=== PATIENT | female | born 1960 | race Caucasian/White ===

== ENCOUNTER 2017-05-23 08:47 | Inpatient (IN) | payer MEDICARE, MEDICAID, SELFPAY ==
[2017-05-23 09:15] VITALS: BP 133/75; PULSE 85; RESP 19; TEMP 36.4; O2SAT 95; BMI 16.6
--- NOTE | 2017-05-23 09:28 | NURSING ---
Patient refused ensure supplement. Patient prefers instant carnation breakfast drink 2-3 times a day
[2017-05-23 09:30] VITALS: BP 126/72; PULSE 79; RESP 20; O2SAT 97
[2017-05-23 09:42] VITALS: BMI 16.7
[2017-05-23 09:43] VITALS: PULSE 80
[2017-05-23 09:48] VITALS: BP 140/73; PULSE 78; RESP 19; O2SAT 97
[2017-05-23 10:00] VITALS: BP 121/73; PULSE 84; RESP 22; O2SAT 98
[2017-05-23 10:26] LABS: Hematocrit 38.3 % (37-47); Hemoglobin 12.9 g/dl (12.0-15.0); Mean Corp Hgb Conc 33.7 g/gl (32-36); Mean Corpuscular Hgb 32.3 pg (27.0-32.0); Mean Corpuscular Volume 95.8 fL (81-99); Mean Platelet Vol. 12.3 fl (6.2-12.0); Platelet Count 59 K/mm3 (150-450); RBC Distribution Width CV 13.5 % (11.6-14.6); RBC Distribution Width SD 45.5 fl (35.1-43.9); White Blood Count 6.2 K/mm3 (4.4-11.0)
[2017-05-23 10:28] LABS: Anion Gap 7 (5-15); BUN 10 mg/dL (7-18); BUN/Creat Ratio 17.8 RATIO (10-20); Chloride 110 mmol/L (98-107); Creatinine, Serum 0.56 mg/dL (0.55-1.02); EST Glomerular Filtration Rate 119 mL/min (>60); Est Glom Filt Rate - Afr Amer 144 mL/min (>60); Estimated Creatinine Clearance 80.42 ml/min; Glucose 119 mg/dL (74-106); Magnesium 1.7 mg/dL (1.6-2.6); Potassium 4.4 mmol/L (3.5-5.1); Sodium Level 141 mmol/L (136-145)
[2017-05-23 10:32] LABS: Scan Indicated on CBC? Y/N NO
[2017-05-23 11:34] VITALS: BP 126/58; PULSE 83; RESP 18; TEMP 36.4; O2SAT 95
[2017-05-23] MEDS: 0.9% NaCl VAD Flush 10 ML IV (11:34)
== END 2017-05-23 11:55 | disposition home or self-care (01) | DRG 847 ==
PROVIDERS: Admitting Provider Internal Medicine Hematology & Oncology; Family Provider Family Medicine; PCP Family Medicine; Visit Provider Internal Medicine Hematology & Oncology
DX: Z51.11 Encounter for antineoplastic chemotherapy (principal); C56.9 Malignant neoplasm of unspecified ovary; F31.5 Bipolar disorder, current episode depressed, severe, with psychotic features; M50.10 Cervical disc disorder with radiculopathy, unspecified cervical region; M51.16 Intervertebral disc disorders with radiculopathy, lumbar region; M13.819 Other specified arthritis, unspecified shoulder; F17.210 Nicotine dependence, cigarettes, uncomplicated
CPT/HCPCS: 80048; 83735; 85027; A4216

== ENCOUNTER 2017-05-30 08:53 | Inpatient (IN) | payer MEDICARE, MEDICAID, SELFPAY ==
[2017-05-30] VITALS (33 sets, daily range): BP systolic 93–161; BP diastolic 48–109; PULSE 65–96; RESP 14–24; TEMP 36.6–36.8; O2SAT 96–100; BMI 16.5
[2017-05-30] MEDS: DiphenhydrAMINE 50 MG/ML Syringe IV ×2 (11:23→22:35)
[2017-05-30 11:39] LABS: M R Staph aureus DNA By PCR Negative (Negative); Probe Check PASS; Specimen Processing Control PASS
[2017-05-30] MEDS: Albuterol 2.5 MG/3 ML VIAL.NEB. INHALATION ×2 (13:59→22:47)
--- NOTE | 2017-05-30 15:46 | CHAPLAIN ---
Type of Pastoral Visit _x__ Initial Visit ___ Follow-up Visit ___ On-call Visit ___ General Patient Visit ___ Spiritual Assessment ___ Family Conference ___ Bereavement ___ Rapid Response ___ Code Blue ___ Other (describe below) Pastoral Care Referral From _x__ Patient ___ Family ___ Nurse ___ Physician ___ [place] ___ Telecom Billing Analyst ___ Other (describe below) Sacrament/Intervention _x__ Active listening ___ Anointing ___ Bahai ___ Bereavement ___ Communion _x__ Katelyn exploration ___ _x__ Life review _x__ Prayer ___ Reconciliation ___ Sacrament of Sick _x__ Supportive presence ___ Wedding ___ Other (describe below) Pastoral Comments five year cancer survivor; wants katelyn to stay strong as she continues to face treatments and ongoing cancer challenges; daughter is with her in room; pt invites this regulatory compliance coordinator to see her again soon
--- NOTE | 2017-05-30 18:03 | PCM.HP.STD ---
Problem List (1) Ovarian epithelial cancer Status: Chronic Qualifiers: Laterality: unspecified laterality Qualified Code(s): C56.9 - Malignant neoplasm of unspecified ovary (2) Chemotherapy adverse reaction Status: Acute Qualifiers: Encounter type: sequela Qualified Code(s): T45.1X5S - Adverse effect of antineoplastic and immunosuppressive drugs, sequela History of Present Illness Date of Admission: 05/30/17 Chief Complaint: Adjuvant chemotherapy- carboplatin desensitization. Previous allergic reaction. The patient is a 56 year old F history of ovarian cancer, status post LOGAN/BSO and debulking operation several years ago. Patient received adjuvant chemotherapy with carboplatin/Pacitaxel. She had her 1st recurrence and had 2nd look operation with intraperitoneal chemotherapy followed by additional cycles of Avastin/carboplatin/gemcitabine chemotherapy. Patient developed allergic reaction to carboplatin at the completion of her last round of chemotherapy. She did not continue Avastin maintenance therapy. Presenting with her 2nd recurrence with retroperitoneal adenopathy on PET scan which was treated by radiosurgery earlier this year. Her CA 125 level did not return to normal after radiation treatment. She started additional chemotherapy with carboplatin desensitization protocol last month in [facility]. Patient did not have any severe reaction from chemotherapy. She also had gemcitabine 3 weeks ago. She her chemotherapy treatment was delayed last week because of thrombocytopenia. She did otherwise well with chemotherapy with no severe nausea vomiting, except for fatigue after chemotherapy. 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 Patient has no new complaint at this time. Her labs yesterday was adequate, normal CBC and creatinine. Past Medical History Past Medical History (Chronic Problems): Chronic Problems Ovarian epithelial cancer (Chronic) Tobacco use disorder (Chronic) Intra-abdominal & Pelvic Swelling, Mass, & Lump (Chronic) History of acute cystitis (Chronic) History of abdominal pain (Chronic) Allergies erythromycin base [Erythromycin Base] Allergy (Verified 01/22/17 12:09) Hives Carboplatin Home Medications: Ambulatory Orders Medication Instructions Recorded Lamotrigine [Lamictal] 25 mg PO DAILY 05/23/17 [place] Carbonate [[place] 300 mg PO BID 05/23/17 Carbonate ER] Morphine Sulfate [Morphine Sulfate 15 mg PO BID PRN 05/23/17 ER] Ondansetron [Zofran] 8 mg PO Q8H PRN PRN 05/23/17 Acetaminophen [Acetaminophen ER] 650 mg PO Q4H PRN PRN 05/30/17 Albuterol Inhaler [Ventolin Hfa 2 puff INHALATION Q4H PRN PRN 05/30/17 (SP)] Amlodipine [Norvasc] 5 mg PO DAILY 05/30/17 Cholecalciferol (Vitamin D3) 1,000 unit PO DAILY 05/30/17 [Vitamin D3] Docusate Sodium [Colace] 100 mg PO BID 05/30/17 Lidocaine/Prilocaine 1 applic TOPICAL UD 05/30/17 [Lidocaine-Prilocaine Cream] Naproxen [Naprosyn] 500 mg PO BID PRN PRN 05/30/17 Pantoprazole Sodium [Protonix] 20 mg PO DAILY 05/30/17 Polyethylene Glycol 3350 [Miralax] 17 gm PO DAILY 05/30/17 Surgical History: - - Multiple surgery for ovarian cancer; 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: ovarian cancer Smoking Status: Current every day smoker Alcohol: None Drugs: None Review of Systems Constitutional: Reports: Fatigue Neurological: Reports: Numbness - on lower extremity, Tingling VTE Information - Inpt Only VTE Present on Admission: No VTE Pharm Prophylaxis ordered?: Yes Patient Problems: Active and Suspected Problems Chemotherapy adverse reaction (Acute) - Physical Exam General: Alert, Oriented x3, No apparent distress HEENT: Atraumatic, PERRLA, EOMI Oral: Moist Mucosa, No Gingival or Mucosal Lesions/ Ulcerations Neck: Supple, No JVD, No Nodes Lungs: Clear to auscultation, Normal air movement, No rhonchi, No wheeze Cardiovascular: Regular rate, Regular Rhythm, Normal S1, Normal S2, No murmurs Abdomen: Bowel Sounds Present, Soft, Non Tender, Non-Distended, No Hepato-splenomegaly Extremities: No clubbing, No cyanosis, No edema Skin: No rashes Musculoskeletal: No Tenderness to Palpation of Joints or Extremities Lymphatic: No Cervical, Supraclavicular, or Inguinal Adenopathy Neurological: Neuro grossly intact Psych/Mental Status: Normal Affect Vital Signs Temp Pulse Resp BP Pulse Ox 97.8 F 83 18 126/65 H 96 05/30/17 15:00 05/30/17 16:44 05/30/17 16:44 05/30/17 16:44 05/30/17 16:44 Oxygen Delivery Method Room Air Weight: 99 lb 3.328 oz Body Mass Index (BMI) 16.5 Intake and Output for Last 24 Hours 05/28/17 05/29/17 05/30/17 23:59 23:59 23:59 Intake Total 254 / 254 Balance 254 / 254 Laboratory Tests Past 24 Hrs 05/30/17 09:38 MRSA (PCR) Negative Assessment/Plan Active and Suspected Problems Chemotherapy adverse reaction (Acute) 1) recurrent ovarian cancer- 3 rd remission on adjuvant chemotherapy (carboplatin desensitization protocol) - Patient is doing well without any evidence of reaction Plan: - Continue carboplatin and infusional overnight; proceed with day 2 decitabine tomorrow after completion of carboplatin - Return to office next week Sunday for day 8 gemcitabine; if CBC is normal ( ANC > 1500 & platelets > 100,000 ) - Office visit in 3 weeks; and we will repeat her labs and CA-125 level before her next hospital admission in 3-4 weeks for next cycle of chemotherapy. 2) history of adverse reaction to carboplatin - Patient is doing well with desensitization program Plan: - Continue to monitor vital signs on telemetry - Follow I/O. - Compazine/Zofran as needed for nausea 3) DVT prophylaxis Plan: - Lovexox 40mg subcutaneous daily Plan to discharge home tomorrow after chemotherapy completed. Follow-up in one week for day 8 chemotherapy-gemcitabine cc: Dr. Jaciel Morfin, Dr. Edison Roa, III
--- NOTE | 2017-05-30 18:14 | HP.PCM_ITS ---
Problem List (1) Ovarian epithelial cancer Status: Chronic Qualifiers: Laterality: unspecified laterality Qualified Code(s): C56.9 - Malignant neoplasm of unspecified ovary (2) Chemotherapy adverse reaction Status: Acute Qualifiers: Encounter type: sequela Qualified Code(s): T45.1X5S - Adverse effect of antineoplastic and immunosuppressive drugs, sequela History of Present Illness Date of Admission: 05/30/17 Chief Complaint: Adjuvant chemotherapy- carboplatin desensitization. Previous allergic reaction. The patient is a 56 year old F history of ovarian cancer, status post LOGAN/BSO and debulking operation several years ago. Patient received adjuvant chemotherapy with carboplatin/Pacitaxel. She had her 1st recurrence and had 2nd look operation with intraperitoneal chemotherapy followed by additional cycles of Avastin/carboplatin/gemcitabine chemotherapy. Patient developed allergic reaction to carboplatin at the completion of her last round of chemotherapy. She did not continue Avastin maintenance therapy. Presenting with her 2nd recurrence with retroperitoneal adenopathy on PET scan which was treated by radiosurgery earlier this year. Her CA 125 level did not return to normal after radiation treatment. She started additional chemotherapy with carboplatin desensitization protocol last month in [facility]. Patient did not have any severe reaction from chemotherapy. She also had gemcitabine 3 weeks ago. She her chemotherapy treatment was delayed last week because of thrombocytopenia. She did otherwise well with chemotherapy with no severe nausea vomiting, except for fatigue after chemotherapy. 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 Patient has no new complaint at this time. Her labs yesterday was adequate, normal CBC and creatinine. Past Medical History Past Medical History (Chronic Problems): Chronic Problems Ovarian epithelial cancer (Chronic) Tobacco use disorder (Chronic) Intra-abdominal & Pelvic Swelling, Mass, & Lump (Chronic) History of acute cystitis (Chronic) History of abdominal pain (Chronic) Allergies erythromycin base [Erythromycin Base] Allergy (Verified 01/22/17 12:09) Hives Carboplatin Home Medications: Ambulatory Orders Medication Instructions Recorded Lamotrigine [Lamictal] 25 mg PO DAILY 05/23/17 [place] Carbonate [[place] 300 mg PO BID 05/23/17 Carbonate ER] Morphine Sulfate [Morphine Sulfate 15 mg PO BID PRN 05/23/17 ER] Ondansetron [Zofran] 8 mg PO Q8H PRN PRN 05/23/17 Acetaminophen [Acetaminophen ER] 650 mg PO Q4H PRN PRN 05/30/17 Albuterol Inhaler [Ventolin Hfa 2 puff INHALATION Q4H PRN PRN 05/30/17 (SP)] Amlodipine [Norvasc] 5 mg PO DAILY 05/30/17 Cholecalciferol (Vitamin D3) 1,000 unit PO DAILY 05/30/17 [Vitamin D3] Docusate Sodium [Colace] 100 mg PO BID 05/30/17 Lidocaine/Prilocaine 1 applic TOPICAL UD 05/30/17 [Lidocaine-Prilocaine Cream] Naproxen [Naprosyn] 500 mg PO BID PRN PRN 05/30/17 Pantoprazole Sodium [Protonix] 20 mg PO DAILY 05/30/17 Polyethylene Glycol 3350 [Miralax] 17 gm PO DAILY 05/30/17 Surgical History: - - Multiple surgery for ovarian cancer; 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: ovarian cancer Smoking Status: Current every day smoker Alcohol: None Drugs: None Review of Systems Constitutional: Reports: Fatigue Neurological: Reports: Numbness - on lower extremity, Tingling VTE Information - Inpt Only VTE Present on Admission: No VTE Pharm Prophylaxis ordered?: Yes Patient Problems: Active and Suspected Problems Chemotherapy adverse reaction (Acute) - Physical Exam General: Alert, Oriented x3, No apparent distress HEENT: Atraumatic, PERRLA, EOMI Oral: Moist Mucosa, No Gingival or Mucosal Lesions/ Ulcerations Neck: Supple, No JVD, No Nodes Lungs: Clear to auscultation, Normal air movement, No rhonchi, No wheeze Cardiovascular: Regular rate, Regular Rhythm, Normal S1, Normal S2, No murmurs Abdomen: Bowel Sounds Present, Soft, Non Tender, Non-Distended, No Hepato- splenomegaly Extremities: No clubbing, No cyanosis, No edema Skin: No rashes Musculoskeletal: No Tenderness to Palpation of Joints or Extremities Lymphatic: No Cervical, Supraclavicular, or Inguinal Adenopathy Neurological: Neuro grossly intact Psych/Mental Status: Normal Affect Vital Signs Temp Pulse Resp BP Pulse Ox 97.8 F 83 18 126/65 H 96 05/30/17 15:00 05/30/17 16:44 05/30/17 16:44 05/30/17 16:44 05/30/17 16:44 Oxygen Delivery Method Room Air Weight: 99 lb 3.328 oz Body Mass Index (BMI) 16.5 Intake and Output for Last 24 Hours 05/28/17 05/29/17 05/30/17 23:59 23:59 23:59 Intake Total 254 / 254 Balance 254 / 254 Laboratory Tests Past 24 Hrs 05/30/17 09:38 MRSA (PCR) Negative Assessment/Plan Active and Suspected Problems Chemotherapy adverse reaction (Acute) 1) recurrent ovarian cancer- 3 rd remission on adjuvant chemotherapy ( carboplatin desensitization protocol) - Patient is doing well without any evidence of reaction Plan: - Continue carboplatin and infusional overnight; proceed with day 2 decitabine tomorrow after completion of carboplatin - Return to office next week Sunday for day 8 gemcitabine; if CBC is normal ( ANC > 1500 & platelets > 100,000 ) - Office visit in 3 weeks; and we will repeat her labs and CA-125 level before her next hospital admission in 3-4 weeks for next cycle of chemotherapy. 2) history of adverse reaction to carboplatin - Patient is doing well with desensitization program Plan: - Continue to monitor vital signs on telemetry - Follow I/O. - Compazine/Zofran as needed for nausea 3) DVT prophylaxis Plan: - Lovexox 40mg subcutaneous daily Plan to discharge home tomorrow after chemotherapy completed. Follow-up in one week for day 8 chemotherapy-gemcitabine cc: Dr. Jaciel Morfin, Dr. Edison Roa, III
[2017-05-30] MEDS: Docusate Sodium 100 MG Capsule PO (21:16)
[2017-05-30] MEDS: Pantoprazole Sodium 20 MG Tablet PO (21:18)
[2017-05-30] MEDS: LITHIUM CARBONATE 300 MG TABLET.ER PO (22:25)
[2017-05-30] MEDS: proCHLORPERazine 5 MG Tablet 10 MG PO (23:05)
[2017-05-31] VITALS (8 sets, daily range): BP systolic 107–129; BP diastolic 50–74; PULSE 64–79; RESP 16–18; TEMP 36.6–36.7; O2SAT 97–99
[2017-05-31] MEDS: Enoxaparin 40 MG/0.4 ML Syringe SC (06:54)
--- NOTE | 2017-05-31 08:54 | PCM.DC.BLA ---
Discharge Summary Date of Admission: 05/30/17 Date of Discharge: 05/31/17 Summary: 56-year-old female with recurrent overlying cancer admitted for chemotherapy- carboplatin desensitization protocol. Patient previously had an adverse reaction (infusion reaction to carboplatin). Patient tolerated chemotherapy without complications. She did receive a dose of Benadryl last night doing chemotherapy infusion. As no adverse or severe allergic reactions. Patient was discharged home this morning on the stable condition. Code Visit Inpatient E&M: 62308 Disch Hosp
--- NOTE | 2017-05-31 08:57 | DS.PCM_ITS ---
Discharge Summary Date of Admission: 05/30/17 Date of Discharge: 05/31/17 Summary: 56-year-old female with recurrent overlying cancer admitted for chemotherapy- carboplatin desensitization protocol. Patient previously had an adverse reaction (infusion reaction to carboplatin). Patient tolerated chemotherapy without complications. She did receive a dose of Benadryl last night doing chemotherapy infusion. As no adverse or severe allergic reactions. Patient was discharged home this morning on the stable condition. Code Visit Inpatient E&M: 70702 Disch Hosp
--- NOTE | 2017-05-31 08:57 | PCM.DC ---
- Discharge Diagnoses Current Active Problems: Current Active and Chronic Problems Ovarian epithelial cancer (Chronic) Chemotherapy adverse reaction (Acute) Reason(s) for Visit for Discharge Instructions: Chemotherapy administration You will use the following diet at home:: No restrictions Your food should be the consistency of: Regular Discharge Activity: Return to Normal Activity May resume sexual activity in: 10-14 days Call your doctor if you observe: Fever of 101 or Higher, Shortness of breath Allergies/Adverse Reactions: Allergies erythromycin base [Erythromycin Base] Allergy (Verified 01/22/17 12:09) Hives Medications to take at Discharge Lamotrigine [Lamictal] 25 mg PO DAILY 05/23/17 [place] Carbonate [[place] Carbonate ER] 300 mg PO BID 05/23/17 Morphine Sulfate [Morphine Sulfate ER] 15 mg PO BID PRN 05/23/17 Ondansetron [Zofran] 8 mg PO Q8H PRN PRN 05/23/17 Acetaminophen [Acetaminophen ER] 650 mg PO Q4H PRN PRN 05/30/17 Albuterol Inhaler [Ventolin Hfa (SP)] 2 puff INHALATION Q4H PRN PRN 05/30/17 Amlodipine [Norvasc] 5 mg PO DAILY 05/30/17 Cholecalciferol (Vitamin D3) [Vitamin D3] 1,000 unit PO DAILY 05/30/17 Docusate Sodium [Colace] 100 mg PO BID 05/30/17 Lidocaine/Prilocaine [Lidocaine-Prilocaine Cream] 1 applic TOPICAL UD 05/30/17 Naproxen [Naprosyn] 500 mg PO BID PRN PRN 05/30/17 Pantoprazole Sodium [Protonix] 20 mg PO DAILY 05/30/17 Polyethylene Glycol 3350 [Miralax] 17 gm PO DAILY 05/30/17 Primary Care Physician: Edison Roa III, MD [Primary Care Provider] -
--- NOTE | 2017-05-31 10:38 | CASEMGMT ---
SW met w/pt briefly, to ask how she is managing. Pt states she is managing well, reports daughter as a good support. Pt reports this is her third time through this, and her third round of chemotherapy this time around. SW gave pt this SW's cared, encouraged her to call this SW if she needs anything. No further needs at this time. DARLINE Li, DIGITAL HARDWARE DESIGN ENGINEER
[2017-05-31] MEDS: Docusate Sodium 100 MG Capsule PO (11:09)
[2017-05-31] MEDS: lamoTRIgine 25 MG Tablet 75 MG PO (11:09)
[2017-05-31] MEDS: Pantoprazole Sodium 20 MG Tablet PO (11:15)
[2017-05-31] MEDS: LITHIUM CARBONATE 300 MG TABLET.ER PO (11:17)
[2017-05-31] MEDS: proCHLORPERazine 5 MG Tablet 10 MG PO (12:38)
== END 2017-05-31 13:50 | disposition home or self-care (01) | DRG 847 ==
PROVIDERS: Admitting Provider Internal Medicine Hematology & Oncology; Family Provider Family Medicine; PCP Family Medicine; Visit Provider Internal Medicine Hematology & Oncology
DX: Z51.11 Encounter for antineoplastic chemotherapy (principal); C56.9 Malignant neoplasm of unspecified ovary; G62.0 Drug-induced polyneuropathy; F17.200 Nicotine dependence, unspecified, uncomplicated; T45.1X5S Adverse effect of antineoplastic and immunosuppressive drugs, sequela; Z90.710 Acquired absence of both cervix and uterus; Z90.722 Acquired absence of ovaries, bilateral; Z90.79 Acquired absence of other genital organ(s)
CPT/HCPCS: 87641; 94640; J7050; J9045; J2405; J3490; J9201

== ENCOUNTER 2017-06-21 08:46 | Observation (INO) | payer MEDICARE, MEDICAID, SELFPAY ==
[2017-06-21] VITALS (17 sets, daily range): BP systolic 97–128; BP diastolic 53–77; PULSE 69–90; RESP 14–16; TEMP 36.6–36.8; O2SAT 96–100; BMI 16.0; BMI 16.1
--- NOTE | 2017-06-21 09:35 | NURSING ---
talked w/ Dr. Morfin's nurse to verify if CBC, BMP, and Mag were infact completed as ordered. AwaRe pt did have CBC and BMP done and results faxed over, on the chart. Per 's nurse mag was not completed. order entered.
[2017-06-21 09:58] LABS: Magnesium 1.9 mg/dL (1.6-2.6)
[2017-06-21] MEDS: DiphenhydrAMINE 50 MG/ML Syringe IV (11:17)
--- NOTE | 2017-06-21 13:16 | PCM.HP.STD ---
Problem List (1) Ovarian epithelial cancer Status: Chronic Qualifiers: (2) Tobacco use disorder Status: Chronic (3) Bipolar disorder (manic depression) Status: Chronic Qualifiers: Active/Remission status: in remission of unspecified degree Qualified Code(s): F31.70 - Bipolar disorder, currently in remission, most recent episode unspecified History of Present Illness Date of Admission: 06/21/17 Chief Complaint: Administration of chemotherapy with carboplatin desensitization protocol The patient is a 56 year old F history of ovarian cancer ( BRCA1 and BRCA2 negative germline mutations ). Patient had her third recurrence of ovarian cancer recently. Previous surgery, chemotherapy and radiation treatment discussed elsewhere. Previous infusion reaction to carboplatin requiring hospital admissions. Medical history significant for hypertension and tobacco use. Current Treatment: Carboplatin / Gemcitabine. Interim history: She had 2 cycles of chemotherapy with carboplatin desensitization protocol. Her second cycle was delayed because of neutropenia. Patient has no problem with her last cycle of chemotherapy 3 weeks ago. The patient has no itching, rash, or difficulty breathing. She has no abdominal pain, nausea, vomiting or diarrhea. No chest pain, cough or shortness of breath. Patient has no worsening neuropathy since 3 years ago when she had Taxol carboplatin. Has no change in weight or appetite. She is admitted today for her third cycle of chemotherapy which was started this morning. Currently she has no hives or rash, itching or swollen throat. Past Medical History Past Medical History (Chronic Problems): Chronic Problems Ovarian epithelial cancer (Chronic) Bipolar disorder (manic depression) (Chronic) Tobacco use disorder (Chronic) Intra-abdominal & Pelvic Swelling, Mass, & Lump (Chronic) History of acute cystitis (Chronic) History of abdominal pain (Chronic) Allergies erythromycin base [Erythromycin Base] Allergy (Verified 01/22/17 12:09) Hives carboplatin Home Medications: Ambulatory Orders Medication Instructions Recorded Lamotrigine [Lamictal] 75 mg PO DAILY 05/23/17 [place] Carbonate [[place] 300 mg PO BID 05/23/17 Carbonate ER] Morphine Sulfate [Morphine Sulfate 15 mg PO BID PRN 05/23/17 ER] Ondansetron [Zofran] 8 mg PO Q8H PRN PRN 05/23/17 Albuterol Inhaler [Ventolin Hfa 2 puff INHALATION Q4H PRN PRN 05/30/17 (SP)] Amlodipine [Norvasc] 5 mg PO DAILY 05/30/17 Cholecalciferol (Vitamin D3) 1,000 unit PO DAILY 05/30/17 [Vitamin D3] Docusate Sodium [Colace] 100 mg PO BID 05/30/17 Lidocaine/Prilocaine 1 applic TOPICAL UD 05/30/17 [Lidocaine-Prilocaine Cream] Naproxen [Naprosyn] 500 mg PO BID PRN PRN 05/30/17 Pantoprazole Sodium [Protonix] 20 mg PO DAILY 05/30/17 Cephalexin [Keflex] 500 mg PO BID 06/21/17 Fluticasone/Vilanterol [Breo 1 each IH BID 06/21/17 Ellipt[place] Inhaler] Pyridoxine HCl [Vitamin B-6] 100 mg PO DAILY 06/21/17 Surgical History: - - Multiple surgery for ovarian cancer; 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, 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; 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 Lives: With Family Smoking Status: Current every day smoker Alcohol: None Drugs: None Review of Systems Psychiatric: Reports: Anxiety VTE Information - Inpt Only VTE Present on Admission: Yes VTE Pharm Prophylaxis ordered?: Yes - Physical Exam General: Alert, Oriented x3 HEENT: Atraumatic, PERRLA, EOMI, Normocephalic Oral: Moist Mucosa, No Gingival or Mucosal Lesions/ Ulcerations Neck: Supple, No JVD Lungs: Clear to auscultation, Normal air movement, No rhonchi, No wheeze, No rales Cardiovascular: Regular rate, Regular Rhythm, Normal S1, Normal S2, No murmurs, PMI Normal Abdomen: Bowel Sounds Present, Soft, Non Tender, Non-Distended, No Hepato-splenomegaly Extremities: No clubbing, No cyanosis, No edema Skin: No rashes Musculoskeletal: No Tenderness to Palpation of Joints or Extremities Lymphatic: No Cervical, Supraclavicular, or Inguinal Adenopathy Neurological: Neuro grossly intact Vital Signs Temp Pulse Resp BP Pulse Ox 98.2 F 74 16 128/74 H 98 06/21/17 12:45 06/21/17 13:15 06/21/17 12:45 06/21/17 13:15 06/21/17 12:45 Oxygen Delivery Method Room Air Weight: 96 lb 9.6 oz Body Mass Index (BMI) 16.0 Laboratory Tests Past 24 Hrs 06/21/17 09:45 Magnesium 1.9 Assessment/Plan 56-year-old lady third recurrence of ovarian cancer, status post cytoreduction and HIPEC with peritoneal lymph no adenopathy, status post RT, She is here for her third cycle of carboplatin MSK protocol and gemcitabine. History of tobacco addiction. Plan: - Proceed with chemotherapy desensitization protocol - Hold blood pressure medication today & resume after discharged home. - Nicotine 21mg topical daily - Lovenox 40mg sq daily for DVT prophylaxis - Repeat CT scan of C/A/P after this cycle of chemotherapy and office visit in 3 weeks. cc: Dr. Jaciel Morfin; Dr. Raffi Fung
--- NOTE | 2017-06-21 13:26 | HP.PCM_ITS ---
Problem List (1) Ovarian epithelial cancer Status: Chronic Qualifiers: (2) Tobacco use disorder Status: Chronic (3) Bipolar disorder (manic depression) Status: Chronic Qualifiers: Active/Remission status: in remission of unspecified degree Qualified Code( s): F31.70 - Bipolar disorder, currently in remission, most recent episode unspecified History of Present Illness Date of Admission: 06/21/17 Chief Complaint: Administration of chemotherapy with carboplatin desensitization protocol The patient is a 56 year old F history of ovarian cancer ( BRCA1 and BRCA2 negative germline mutations ). Patient had her third recurrence of ovarian cancer recently. Previous surgery, chemotherapy and radiation treatment discussed elsewhere. Previous infusion reaction to carboplatin requiring hospital admissions. Medical history significant for hypertension and tobacco use. Current Treatment: Carboplatin / Gemcitabine. Interim history: She had 2 cycles of chemotherapy with carboplatin desensitization protocol. Her second cycle was delayed because of neutropenia. Patient has no problem with her last cycle of chemotherapy 3 weeks ago. The patient has no itching, rash, or difficulty breathing. She has no abdominal pain, nausea, vomiting or diarrhea. No chest pain, cough or shortness of breath. Patient has no worsening neuropathy since 3 years ago when she had Taxol carboplatin. Has no change in weight or appetite. She is admitted today for her third cycle of chemotherapy which was started this morning. Currently she has no hives or rash, itching or swollen throat. Past Medical History Past Medical History (Chronic Problems): Chronic Problems Ovarian epithelial cancer (Chronic) Bipolar disorder (manic depression) (Chronic) Tobacco use disorder (Chronic) Intra-abdominal & Pelvic Swelling, Mass, & Lump (Chronic) History of acute cystitis (Chronic) History of abdominal pain (Chronic) Allergies erythromycin base [Erythromycin Base] Allergy (Verified 01/22/17 12:09) Hives carboplatin Home Medications: Ambulatory Orders Medication Instructions Recorded Lamotrigine [Lamictal] 75 mg PO DAILY 05/23/17 [place] Carbonate [[place] 300 mg PO BID 05/23/17 Carbonate ER] Morphine Sulfate [Morphine Sulfate 15 mg PO BID PRN 05/23/17 ER] Ondansetron [Zofran] 8 mg PO Q8H PRN PRN 05/23/17 Albuterol Inhaler [Ventolin Hfa 2 puff INHALATION Q4H PRN PRN 05/30/17 (SP)] Amlodipine [Norvasc] 5 mg PO DAILY 05/30/17 Cholecalciferol (Vitamin D3) 1,000 unit PO DAILY 05/30/17 [Vitamin D3] Docusate Sodium [Colace] 100 mg PO BID 05/30/17 Lidocaine/Prilocaine 1 applic TOPICAL UD 05/30/17 [Lidocaine-Prilocaine Cream] Naproxen [Naprosyn] 500 mg PO BID PRN PRN 05/30/17 Pantoprazole Sodium [Protonix] 20 mg PO DAILY 05/30/17 Cephalexin [Keflex] 500 mg PO BID 06/21/17 Fluticasone/Vilanterol [Breo 1 each IH BID 06/21/17 Ellipta Inhaler] Pyridoxine HCl [Vitamin B-6] 100 mg PO DAILY 06/21/17 Surgical History: - - Multiple surgery for ovarian cancer; 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, 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; 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 Lives: With Family Smoking Status: Current every day smoker Alcohol: None Drugs: None Review of Systems Psychiatric: Reports: Anxiety VTE Information - Inpt Only VTE Present on Admission: Yes VTE Pharm Prophylaxis ordered?: Yes - Physical Exam General: Alert, Oriented x3 HEENT: Atraumatic, PERRLA, EOMI, Normocephalic Oral: Moist Mucosa, No Gingival or Mucosal Lesions/ Ulcerations Neck: Supple, No JVD Lungs: Clear to auscultation, Normal air movement, No rhonchi, No wheeze, No rales Cardiovascular: Regular rate, Regular Rhythm, Normal S1, Normal S2, No murmurs, PMI Normal Abdomen: Bowel Sounds Present, Soft, Non Tender, Non-Distended, No Hepato- splenomegaly Extremities: No clubbing, No cyanosis, No edema Skin: No rashes Musculoskeletal: No Tenderness to Palpation of Joints or Extremities Lymphatic: No Cervical, Supraclavicular, or Inguinal Adenopathy Neurological: Neuro grossly intact Vital Signs Temp Pulse Resp BP Pulse Ox 98.2 F 74 16 128/74 H 98 06/21/17 12:45 06/21/17 13:15 06/21/17 12:45 06/21/17 13:15 06/21/17 12:45 Oxygen Delivery Method Room Air Weight: 96 lb 9.6 oz Body Mass Index (BMI) 16.0 Laboratory Tests Past 24 Hrs 06/21/17 09:45 Magnesium 1.9 Assessment/Plan 56-year-old lady third recurrence of ovarian cancer, status post cytoreduction and HIPEC with peritoneal lymph no adenopathy, status post RT, She is here for her third cycle of carboplatin [place] protocol and gemcitabine. History of tobacco addiction. Plan: - Proceed with chemotherapy desensitization protocol - Hold blood pressure medication today & resume after discharged home. - Nicotine 21mg topical daily - Lovenox 40mg sq daily for DVT prophylaxis - Repeat CT scan of C/A/P after this cycle of chemotherapy and office visit in 3 weeks. cc: Dr. Jaciel Morfin; Dr. Raffi Fung
[2017-06-21] MEDS: Enoxaparin 40 MG/0.4 ML Syringe SC (15:05)
[2017-06-21] MEDS: 0.9% NaCl VAD Flush 10 ML IV (16:36)
[2017-06-21] MEDS: LORazepam 2 MG/ML Syringe 0.5 MG IV (16:36)
[2017-06-21] MEDS: Budesonide Respules 0.5 MG/2 ML AMPUL.NEB. INHALATION (19:22)
[2017-06-21] MEDS: Albuterol 2.5 MG/3 ML VIAL.NEB. INHALATION (19:22)
[2017-06-21] MEDS: Docusate Sodium 100 MG Capsule PO (22:00)
[2017-06-21] MEDS: morphine SR 15 MG Tablet PO (22:00)
[2017-06-21] MEDS: Pantoprazole Sodium 20 MG Tablet PO (22:03)
[2017-06-22] VITALS (7 sets, daily range): BP systolic 115–131; BP diastolic 62–76; PULSE 70–80; RESP 14–16; TEMP 36.5–36.9; O2SAT 97–100
[2017-06-22] MEDS: Ondansetron 4 MG/2 ML Vial 8 MG IV ×2 (00:16→10:34)
[2017-06-22] MEDS: DiphenhydrAMINE 50 MG/ML Syringe IV (00:16)
[2017-06-22] MEDS: 0.9% NaCl VAD Flush 10 ML IV ×3 (00:17→12:25)
[2017-06-22] MEDS: Budesonide Respules 0.5 MG/2 ML AMPUL.NEB. INHALATION (07:01)
[2017-06-22] MEDS: Albuterol 2.5 MG/3 ML VIAL.NEB. INHALATION (07:01)
--- NOTE | 2017-06-22 07:50 | PCM.DC ---
- Discharge Diagnoses Current Active Problems: Current Active and Chronic Problems Bipolar disorder (manic depression) (Chronic) You will use the following diet at home:: No restrictions Your food should be the consistency of: Regular Your liquids should be the consistency of: Regular/Thin Discharge Activity: Return to Normal Activity Allergies/Adverse Reactions: Allergies erythromycin base [Erythromycin Base] Allergy (Verified 01/22/17 12:09) Hives Medications to take at Discharge Lamotrigine [Lamictal] 75 mg PO DAILY 05/23/17 [place] Carbonate [[place] Carbonate ER] 300 mg PO BID 05/23/17 Morphine Sulfate [Morphine Sulfate ER] 15 mg PO BID PRN 05/23/17 Ondansetron [Zofran] 8 mg PO Q8H PRN PRN 05/23/17 Albuterol Inhaler [Ventolin Hfa] 2 puff INHALATION Q4H PRN PRN 05/30/17 Amlodipine [Norvasc] 5 mg PO DAILY 05/30/17 Cholecalciferol (Vitamin D3) [Vitamin D3] 1,000 unit PO DAILY 05/30/17 Docusate Sodium [Colace] 100 mg PO BID 05/30/17 Lidocaine/Prilocaine [Lidocaine-Prilocaine Cream] 1 applic TOPICAL UD 05/30/17 Naproxen [Naprosyn] 500 mg PO BID PRN PRN 05/30/17 Pantoprazole Sodium [Protonix] 20 mg PO DAILY 05/30/17 Cephalexin [Keflex] 500 mg PO BID 06/21/17 Fluticasone/Vilanterol [Breo Ellipta 100-25 Mcg INH] 1 each IH BID 06/21/17 Pyridoxine HCl [Vitamin B-6] 100 mg PO DAILY 06/21/17 Primary Care Physician: Edison Roa III, MD [Primary Care Provider] - Please Follow Up With: Jaciel Morfin MD - As scheduled
--- NOTE | 2017-06-22 07:55 | DS.PCM_ITS ---
Discharge Date and Diagnosis Date of Admission: 06/21/17 Date of Discharge: 06/22/17 - Secondary Discharge Diagnosis Chronic Problems Ovarian epithelial cancer (Chronic) Bipolar disorder (manic depression) (Chronic) Tobacco use disorder (Chronic) Intra-abdominal & Pelvic Swelling, Mass, & Lump (Chronic) History of acute cystitis (Chronic) History of abdominal pain (Chronic) Hospital Course and Treatment Operations: None Procedures: None Summary of Care Provided: The patient is a 56 year old F with recurrent ovarian cancer who was admitted for a cycle of carboplatin/gemcitabine on a desensitization protocol. She received infusion of chemotherapy without adverse event. Smoking counseling provided. Patient scheduled for follow up with Dr. Morfin. Discharge Activity: Return to Normal Activity Home Medications: Medications to take at Discharge Lamotrigine [Lamictal] 75 mg PO DAILY 05/23/17 [place] Carbonate [[place] Carbonate ER] 300 mg PO BID 05/23/17 Morphine Sulfate [Morphine Sulfate ER] 15 mg PO BID PRN 05/23/17 Ondansetron [Zofran] 8 mg PO Q8H PRN PRN 05/23/17 Albuterol Inhaler [Ventolin Hfa] 2 puff INHALATION Q4H PRN PRN 05/30/17 Amlodipine [Norvasc] 5 mg PO DAILY 05/30/17 Cholecalciferol (Vitamin D3) [Vitamin D3] 1,000 unit PO DAILY 05/30/17 Docusate Sodium [Colace] 100 mg PO BID 05/30/17 Lidocaine/Prilocaine [Lidocaine-Prilocaine Cream] 1 applic TOPICAL UD 05/30/17 Naproxen [Naprosyn] 500 mg PO BID PRN PRN 05/30/17 Pantoprazole Sodium [Protonix] 20 mg PO DAILY 05/30/17 Cephalexin [Keflex] 500 mg PO BID 06/21/17 Fluticasone/Vilanterol [Breo Ellipta 100-25 Mcg INH] 1 each IH BID 06/21/17 Pyridoxine HCl [Vitamin B-6] 100 mg PO DAILY 06/21/17 Primary Care Physician: Edison Roa III, MD [Primary Care Provider] - Please Follow Up With: Jaciel Morfin MD - As scheduled Medical Necessity - Tobacco Use Smoking Status: Current every day smoker - Smoking cessation discussed. She appears psychologically motivated to quit. Discussed quitting cold turkey. Meaningful Use Info Meaningful Use Diagnoses (Choose all that apply): None applicable
[2017-06-22] MEDS: lamoTRIgine 25 MG Tablet 75 MG PO (09:32)
[2017-06-22] MEDS: Pantoprazole Sodium 20 MG Tablet PO (09:47)
[2017-06-22] MEDS: morphine SR 15 MG Tablet PO (09:47)
[2017-06-22] MEDS: LITHIUM CARBONATE 300 MG TABLET.ER PO (09:51)
== END 2017-06-22 12:39 | disposition home or self-care (01) ==
PROVIDERS: Admitting Provider Internal Medicine Hematology & Oncology; Family Provider Family Medicine; PCP Family Medicine; Visit Provider Internal Medicine Hematology & Oncology
DX: Z51.11 Encounter for antineoplastic chemotherapy (principal); C56.9 Malignant neoplasm of unspecified ovary; Z79.899 Other long term (current) drug therapy; F31.70 Bipolar disorder, currently in remission, most recent episode unspecified; I10 Essential (primary) hypertension; F17.210 Nicotine dependence, cigarettes, uncomplicated
CPT/HCPCS: 83735; 94640; 96367; 96372; 96375; 96376; 96413; 96415; 96417; 99406; J7050; J9045; A4216; J2405; J3490; J9201

== ENCOUNTER 2017-07-25 08:45 | Inpatient (IN) | payer MEDICARE, SELFPAY ==
[2017-07-25] VITALS (10 sets, daily range): BP systolic 106–131; BP diastolic 54–68; PULSE 70–80; RESP 14–18; TEMP 36.3–37.1; O2SAT 96–99; BMI 17.5; BMI 17.6
[2017-07-25] MEDS: 0.9% NaCl VAD Flush 10 ML IV ×2 (11:56→12:16)
[2017-07-25] MEDS: DiphenhydrAMINE 50 MG/ML Syringe IV (12:16)
--- NOTE | 2017-07-25 14:09 | NURSING ---
at 1130, called outpatient infusion center to discuss patient care and chemo starting time. they stated ok to give pre-meds and requested return phone call when benadryl was given. called after all premeds were given at 1219. LAN Crawford came to unit to begin chemo infusion. vitals obtained [id number] for the first hour. will continue to monitor.
--- NOTE | 2017-07-25 16:00 | CHAPLAIN ---
Type of Pastoral Visit _x__ Initial Visit ___ Follow-up Visit ___ On-call Visit ___ General Patient Visit ___ Spiritual Assessment ___ Family Conference ___ Bereavement ___ Rapid Response ___ Code Blue ___ Other (describe below) Pastoral Care Referral From _x__ Patient ___ Family ___ Nurse ___ Physician ___ Health Information Director ___ Well Site Drilling Engineer ___ Other (describe below) Sacrament/Intervention _x__ Active listening ___ Anointing ___ Latter-Day ___ Bereavement ___ Communion _x__ Katelyn exploration ___ _x__ Life review _x__ Prayer ___ Reconciliation ___ Sacrament of Sick ___ Supportive presence ___ Wedding ___ Other (describe below) Pastoral Comments
--- NOTE | 2017-07-25 19:22 | PCM.HP.STD ---
Problem List (1) Ovarian epithelial cancer Status: Chronic Qualifiers: Laterality: unspecified laterality Qualified Code(s): C56.9 - Malignant neoplasm of unspecified ovary (2) Chemotherapy adverse reaction Status: Suspected Qualifiers: Encounter type: sequela (3) Tobacco use disorder Status: Chronic History of Present Illness Date of Admission: 07/25/17 Chief Complaint: chemotherapy administration-carboplatin desensitization The patient is a 56 year old F with metastatic ovarian cancer, history of carboplatin infusion reaction. Has multiple courses of [place]- based chemotherapy in the past, and she most recently discovered to have recurrent ovarian cancer. Previous radiation therapy as second look surgery for recurrent ovarian cancer. Completed 3 cycles of carboplatin desensitization with gemcitabine. Patient did not receive bevacizumab since her last recurrence. Since her last treatment CT scan chest abdomen pelvis showed partial response her CA 125 level is now normal. She did not have any infusion reaction with desensitization protocol. She is here for her 4th cycles of Carboplatin /Gemcitabine. Past Medical History Past Medical History (Chronic Problems): Chronic Problems Ovarian epithelial cancer (Chronic) Bipolar disorder (manic depression) (Chronic) Tobacco use disorder (Chronic) Intra-abdominal & Pelvic Swelling, Mass, & Lump (Chronic) History of acute cystitis (Chronic) History of abdominal pain (Chronic) Allergies erythromycin base [Erythromycin Base] Allergy (Verified 01/22/17 12:09) Hives Home Medications: Ambulatory Orders Medication Instructions Recorded Lamotrigine [Lamictal] 75 mg PO DAILY 05/23/17 [place] Carbonate [[place] 300 mg PO BID 05/23/17 Carbonate ER] Morphine Sulfate [Morphine Sulfate 15 mg PO BID PRN 05/23/17 ER] Ondansetron [Zofran] 8 mg PO Q8H PRN PRN 05/23/17 Albuterol Inhaler [Ventolin Hfa] 2 puff INHALATION Q4H PRN PRN 05/30/17 Amlodipine [Norvasc] 5 mg PO DAILY 05/30/17 Cholecalciferol (Vitamin D3) 1,000 unit PO DAILY 05/30/17 [Vitamin D3] Docusate Sodium [Colace] 100 mg PO BID 05/30/17 Lidocaine/Prilocaine 1 applic TOPICAL UD PRN 05/30/17 [Lidocaine-Prilocaine Cream] Naproxen [Naprosyn] 500 mg PO BID PRN PRN 05/30/17 Pantoprazole Sodium [Protonix] 20 mg PO DAILY 05/30/17 Pyridoxine HCl [Vitamin B-6] 100 mg PO DAILY 06/21/17 Surgical History: - - Multiple surgery for ovarian cancer; 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, and 2013; 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 Smoking Status: Current every day smoker Tobacco Use: Cigarettes Alcohol: None Drugs: None VTE Information - Inpt Only VTE Present on Admission: No VTE Mechan Device Prophylaxis: None VTE Pharm Prophylaxis ordered?: Yes - Physical Exam General: Alert, Oriented x3, No apparent distress HEENT: Atraumatic, PERRLA, EOMI, Normocephalic Oral: Moist Mucosa, No Gingival or Mucosal Lesions/ Ulcerations Neck: Supple, No JVD, No Nodes Lungs: Clear to auscultation, Normal air movement, No rhonchi, No wheeze, No rales Cardiovascular: Regular rate, Regular Rhythm, Normal S1, Normal S2, No murmurs Abdomen: Bowel Sounds Present, Soft, Non Tender, Non-Distended, No Hepato-splenomegaly Extremities: No clubbing, No cyanosis, No edema Skin: No rashes Lymphatic: No Cervical, Supraclavicular, or Inguinal Adenopathy Neurological: Cranial nerves II-XII grossly intact, Neuro grossly intact Psych/Mental Status: Normal Affect Vital Signs Temp Pulse Resp BP Pulse Ox 98.7 F 71 18 108/54 L 96 07/25/17 14:20 07/25/17 15:59 07/25/17 14:20 07/25/17 14:20 07/25/17 14:20 Oxygen Delivery Method Room Air Weight: 105 lb 9.623 oz Body Mass Index (BMI) 17.5 Intake and Output for Last 24 Hours 07/23/17 07/24/17 07/25/17 23:59 23:59 23:59 Intake Total 1078 / 1078 Balance 1078 / 1078 Assessment/Plan 1) ovarian cancer third recurrence Plan: -Continue cycle 4 of carboplatin desensitizaion & Gemcitabine -Return to office in 3 weeks to her next cycle of chemotherapy. 2) history of tobacco abuse Plan: -NicoDerm patch daily cc: Dr. Jaciel Morfin Code Visit OBSV E&M: 98617 Initial observation care L3
[2017-07-25] MEDS: Albuterol 2.5 MG/3 ML VIAL.NEB. INHALATION (19:30)
--- NOTE | 2017-07-25 19:40 | HP.PCM_ITS ---
Problem List (1) Ovarian epithelial cancer Status: Chronic Qualifiers: Laterality: unspecified laterality Qualified Code(s): C56.9 - Malignant neoplasm of unspecified ovary (2) Chemotherapy adverse reaction Status: Suspected Qualifiers: Encounter type: sequela (3) Tobacco use disorder Status: Chronic History of Present Illness Date of Admission: 07/25/17 Chief Complaint: chemotherapy administration-carboplatin desensitization The patient is a 56 year old F with metastatic ovarian cancer, history of carboplatin infusion reaction. Has multiple courses of [place]- based chemotherapy in the past, and she most recently discovered to have recurrent ovarian cancer. Previous radiation therapy as second look surgery for recurrent ovarian cancer. Completed 3 cycles of carboplatin desensitization with gemcitabine. Patient did not receive bevacizumab since her last recurrence. Since her last treatment CT scan chest abdomen pelvis showed partial response her CA 125 level is now normal. She did not have any infusion reaction with desensitization protocol. She is here for her 4th cycles of Carboplatin /Gemcitabine. Past Medical History Past Medical History (Chronic Problems): Chronic Problems Ovarian epithelial cancer (Chronic) Bipolar disorder (manic depression) (Chronic) Tobacco use disorder (Chronic) Intra-abdominal & Pelvic Swelling, Mass, & Lump (Chronic) History of acute cystitis (Chronic) History of abdominal pain (Chronic) Allergies erythromycin base [Erythromycin Base] Allergy (Verified 01/22/17 12:09) Hives Home Medications: Ambulatory Orders Medication Instructions Recorded Lamotrigine [Lamictal] 75 mg PO DAILY 05/23/17 [place] Carbonate [[place] 300 mg PO BID 05/23/17 Carbonate ER] Morphine Sulfate [Morphine Sulfate 15 mg PO BID PRN 05/23/17 ER] Ondansetron [Zofran] 8 mg PO Q8H PRN PRN 05/23/17 Albuterol Inhaler [Ventolin Hfa] 2 puff INHALATION Q4H PRN PRN 05/30/17 Amlodipine [Norvasc] 5 mg PO DAILY 05/30/17 Cholecalciferol (Vitamin D3) 1,000 unit PO DAILY 05/30/17 [Vitamin D3] Docusate Sodium [Colace] 100 mg PO BID 05/30/17 Lidocaine/Prilocaine 1 applic TOPICAL UD PRN 05/30/17 [Lidocaine-Prilocaine Cream] Naproxen [Naprosyn] 500 mg PO BID PRN PRN 05/30/17 Pantoprazole Sodium [Protonix] 20 mg PO DAILY 05/30/17 Pyridoxine HCl [Vitamin B-6] 100 mg PO DAILY 06/21/17 Surgical History: - - Multiple surgery for ovarian cancer; 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, and 2013; 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 Smoking Status: Current every day smoker Tobacco Use: Cigarettes Alcohol: None Drugs: None VTE Information - Inpt Only VTE Present on Admission: No VTE Mechan Device Prophylaxis: None VTE Pharm Prophylaxis ordered?: Yes - Physical Exam General: Alert, Oriented x3, No apparent distress HEENT: Atraumatic, PERRLA, EOMI, Normocephalic Oral: Moist Mucosa, No Gingival or Mucosal Lesions/ Ulcerations Neck: Supple, No JVD, No Nodes Lungs: Clear to auscultation, Normal air movement, No rhonchi, No wheeze, No rales Cardiovascular: Regular rate, Regular Rhythm, Normal S1, Normal S2, No murmurs Abdomen: Bowel Sounds Present, Soft, Non Tender, Non-Distended, No Hepato- splenomegaly Extremities: No clubbing, No cyanosis, No edema Skin: No rashes Lymphatic: No Cervical, Supraclavicular, or Inguinal Adenopathy Neurological: Cranial nerves II-XII grossly intact, Neuro grossly intact Psych/Mental Status: Normal Affect Vital Signs Temp Pulse Resp BP Pulse Ox 98.7 F 71 18 108/54 L 96 07/25/17 14:20 07/25/17 15:59 07/25/17 14:20 07/25/17 14:20 07/25/17 14:20 Oxygen Delivery Method Room Air Weight: 105 lb 9.623 oz Body Mass Index (BMI) 17.5 Intake and Output for Last 24 Hours 07/23/17 07/24/17 07/25/17 23:59 23:59 23:59 Intake Total 1078 / 1078 Balance 1078 / 1078 Assessment/Plan 1) ovarian cancer third recurrence Plan: -Continue cycle 4 of carboplatin desensitizaion & Gemcitabine -Return to office in 3 weeks to her next cycle of chemotherapy. 2) history of tobacco abuse Plan: -NicoDerm patch daily cc: Dr. Jaciel Morfin Code Visit OBSV E&M: [id number] Initial observation care L3
[2017-07-25] MEDS: Acetaminophen 325 MG Tablet 650 MG PO (20:27)
[2017-07-25] MEDS: Docusate Sodium 100 MG Capsule PO (22:23)
[2017-07-25] MEDS: morphine SR 15 MG Tablet PO (22:23)
[2017-07-25] MEDS: LITHIUM CARBONATE 300 MG TABLET.ER PO (22:23)
[2017-07-25] MEDS: Pantoprazole Sodium 20 MG Tablet PO (22:23)
[2017-07-26] MEDS: Ondansetron 4 MG/2 ML Vial 8 MG IV (01:46)
[2017-07-26] MEDS: Hydrocortisone Sod Succinate 100 MG/2 ML Vial IV (01:52)
[2017-07-26] MEDS: DiphenhydrAMINE 50 MG/ML Syringe IV (01:54)
[2017-07-26 01:59] VITALS: BP 138/74; PULSE 72; RESP 15; TEMP 36.6; O2SAT 97
[2017-07-26 02:00] VITALS: PULSE 70
[2017-07-26 04:11] VITALS: PULSE 68
[2017-07-26 05:00] VITALS: PULSE 65; RESP 15
[2017-07-26 05:41] VITALS: PULSE 65
--- NOTE | 2017-07-26 08:26 | PCM.DC.BLA ---
Discharge Summary Date of Admission: 07/25/17 Date of Discharge: 07/26/17 Summary: This is a 56-year-old female with recurrent ovarian cancer presenting [facility] gem[facility]abine. Patient previously had infusion reaction to carboplatin, but has no allergic reaction with chemotherapy treatment. She is discharged under stable condition this afternoon after chemotherapy. Her Port flushed with heparin and discharge instructions given. She will follow up with me in the office in 3 weeks, and set up her next cycle of chemotherapy in the hospital in 3 weeks. Code Visit OBSV E&M: [id number] Observation care discharge
--- NOTE | 2017-07-26 08:30 | DS.PCM_ITS ---
Discharge Summary Date of Admission: 07/25/17 Date of Discharge: 07/26/17 Summary: This is a 56-year-old female with recurrent ovarian cancer presenting [facility] gemcit[facility]. Patient previously had infusion reaction to carboplatin, but has no allergic reaction with chemotherapy treatment. She is discharged under stable condition this afternoon after chemotherapy. Her Port flushed with heparin and discharge instructions given. She will follow up with me in the office in 3 weeks, and set up her next cycle of chemotherapy in the hospital in 3 weeks. Code Visit OBSV E&M: 72990 Observation care discharge
--- NOTE | 2017-07-26 08:30 | PCM.DC ---
- Discharge Diagnoses Current Active Problems: Recurrent ovarian cancer; status post chemotherapy Reason(s) for Visit for Discharge Instructions: Chemotherapy administration You will use the following diet at home:: Regular Your food should be the consistency of: Regular Discharge Activity: Return to Normal Activity, No Restrictions May resume sexual activity in: 1 week Allergies/Adverse Reactions: Allergies erythromycin base [Erythromycin Base] Allergy (Verified 01/22/17 12:09) Hives Medications to take at Discharge Lamotrigine [Lamictal] 75 mg PO DAILY 05/23/17 [place] Carbonate [[place] Carbonate ER] 300 mg PO BID 05/23/17 Morphine Sulfate [Morphine Sulfate ER] 15 mg PO BID PRN 05/23/17 Ondansetron [Zofran] 8 mg PO Q8H PRN PRN 05/23/17 Albuterol Inhaler [Ventolin Hfa] 2 puff INHALATION Q4H PRN PRN 05/30/17 Amlodipine [Norvasc] 5 mg PO DAILY 05/30/17 Cholecalciferol (Vitamin D3) [Vitamin D3] 1,000 unit PO DAILY 05/30/17 Docusate Sodium [Colace] 100 mg PO BID 05/30/17 Lidocaine/Prilocaine [Lidocaine-Prilocaine Cream] 1 applic TOPICAL UD PRN 05/30/17 Naproxen [Naprosyn] 500 mg PO BID PRN PRN 05/30/17 Pantoprazole Sodium [Protonix] 20 mg PO DAILY 05/30/17 Pyridoxine HCl [Vitamin B-6] 100 mg PO DAILY 06/21/17 Primary Care Physician: Edison Roa III, MD [Primary Care Provider] - Please Follow Up With: Jaciel Morfin MD - in 3 weeks Proposed Discharge Date: 07/26/17 - Chemotherapy completion
[2017-07-26] MEDS: Docusate Sodium 100 MG Capsule PO (09:27)
[2017-07-26] MEDS: Pantoprazole Sodium 20 MG Tablet PO (09:28)
[2017-07-26] MEDS: morphine SR 15 MG Tablet PO (09:28)
[2017-07-26] MEDS: lamoTRIgine 25 MG Tablet 75 MG PO (09:31)
[2017-07-26] MEDS: Enoxaparin 40 MG/0.4 ML Syringe SC (09:31)
[2017-07-26] MEDS: LITHIUM CARBONATE 300 MG TABLET.ER PO (09:32)
[2017-07-26 09:47] VITALS: BP 128/80; PULSE 69; RESP 16; TEMP 36.7; O2SAT 100
== END 2017-07-26 13:41 | disposition home or self-care (01) | DRG 846 ==
PROVIDERS: Admitting Provider Internal Medicine Hematology & Oncology; Family Provider Family Medicine; PCP Family Medicine; Visit Provider Internal Medicine Hematology & Oncology
DX: Z51.11 Encounter for antineoplastic chemotherapy (principal); E43 Unspecified severe protein-calorie malnutrition; C56.9 Malignant neoplasm of unspecified ovary; C79.9 Secondary malignant neoplasm of unspecified site; Z68.1 Body mass index [BMI] 19.9 or less, adult; F17.210 Nicotine dependence, cigarettes, uncomplicated; Z90.722 Acquired absence of ovaries, bilateral; Z90.710 Acquired absence of both cervix and uterus; Z92.3 Personal history of irradiation; Z92.21 Personal history of antineoplastic chemotherapy
CPT/HCPCS: 99406; J7050; J9045; A4216; J2405; J3490; J9201

== ENCOUNTER 2017-08-22 09:00 | Inpatient (IN) | payer MEDICARE, MEDICAID, SELFPAY ==
--- NOTE | 2017-08-22 09:00 | DT_ITS ---
This patient was seen during an EMR downtime August 20, 2017 - August 27, 2017. This patient may have a combination of paper and electronic documentation or all paper documentation. All documentation is viewable within the e-chart portion of [facility] for each patient visit.
== END 2017-08-23 16:05 | disposition home or self-care (01) | DRG 847 ==
PROVIDERS: Admitting Provider Internal Medicine Hematology & Oncology; Family Provider Family Medicine; PCP Family Medicine; Visit Provider Internal Medicine Hematology & Oncology
DX: Z51.11 Encounter for antineoplastic chemotherapy (principal); C56.9 Malignant neoplasm of unspecified ovary
CPT/HCPCS: J7050; J9045; J2405; J9201

== ENCOUNTER 2017-09-17 08:46 | Observation (INO) | payer MEDICARE, MEDICAID, SELFPAY ==
[2017-09-17] VITALS (11 sets, daily range): BP systolic 102–137; BP diastolic 63–84; PULSE 47–76; RESP 16–19; TEMP 36.7–37.1; O2SAT 96–98; BMI 17.2
[2017-09-17 10:04] LABS: Absolute Lymphocyte Count 0.78 X10^3/ul (0.83-4.51); Absolute Neutrophil Count 4.9 X10^3/uL (2.0-7.7); Basophil# 0.02 X10^3/uL; Basophil% 0.3 % (0-1); Hematocrit 39.9 % (37-47); Hemoglobin 13.3 g/dl (12.0-15.0); Lymphocyte # 0.78 X10^3/ul (4.0); Lymphocyte % 13.4 % (19-41); Mean Corp Hgb Conc 33.3 g/gl (32-36); Mean Corpuscular Hgb 34.1 pg (27.0-32.0); Mean Corpuscular Volume 102.3 fL (81-99); Mean Platelet Vol. 10.9 fl (6.2-12.0); Monocyte# 0.13 X10^3/uL; Monocyte% 2.2 % (0-10); Neutrophil # 4.87 X10^3/uL (2.7-7.7); Neutrophil % 83.9 % (47-70); Platelet Count 317 K/mm3 (150-450); RBC Distribution Width CV 15.1 % (11.6-14.6); RBC Distribution Width SD 55.2 fl (35.1-43.9); White Blood Count 5.8 K/mm3 (4.4-11.0)
[2017-09-17 10:05] LABS: POSITIVE COUNT NO; POSITIVE DIFFERENTIAL NO; POSITIVE MORPHOLOGY NO
[2017-09-17 10:35] LABS: Anion Gap 5 (5-15); BUN 8 mg/dL (7-18); BUN/Creat Ratio 11.3 RATIO (10-20); Calcium,Total 9.3 mg/dL (8.5-10.1); Chloride 110 mmol/L (98-107); EST Glomerular Filtration Rate 91 mL/min (>60); Est Glom Filt Rate - Afr Amer 110 mL/min (>60); Estimated Creatinine Clearance 66.58 ml/min; Glucose 155 mg/dL (74-106); Magnesium 1.8 mg/dL (1.6-2.6); Potassium 4.2 mmol/L (3.5-5.1); Sodium Level 140 mmol/L (136-145)
[2017-09-17] MEDS: DiphenhydrAMINE 50 MG/ML Syringe IV (12:27)
[2017-09-17] MEDS: Enoxaparin 40 MG/0.4 ML Syringe SC (14:36)
--- NOTE | 2017-09-17 15:15 | CHAPLAIN ---
Type of Pastoral Visit _x__ Initial Visit _x__ Follow-up Visit ___ On-call Visit ___ General Patient Visit ___ Spiritual Assessment ___ Family Conference ___ Bereavement ___ Rapid Response ___ Code Blue ___ Other (describe below) Pastoral Care Referral From _x__ Patient ___ Family ___ Nurse ___ Physician ___ Monumental Stonemason ___ Business Transformation Consultant ___ Other (describe below) Sacrament/Intervention _x__ Active listening ___ Anointing ___ Rastafari ___ Bereavement ___ Communion ___ Katelyn exploration ___ ___ Life review _x__ Prayer ___ Reconciliation ___ Sacrament of Sick ___ Supportive presence ___ Wedding ___ Other (describe below) Pastoral Comments patient return for routine cancer treatments; follow up; pt welcomes prayer
--- NOTE | 2017-09-17 18:55 | PCM.HP.STD ---
Problem List (1) Ovarian epithelial cancer Status: Chronic Qualifiers: Qualified Code(s): C56.9 - Malignant neoplasm of unspecified ovary (2) Chemotherapy adverse reaction Status: Suspected Qualifiers: Qualified Code(s): T45.1X5D - Adverse effect of antineoplastic and immunosuppressive drugs, subsequent encounter History of Present Illness Date of Admission: 09/17/17 Chief Complaint: Chemotherapy administration with carboplatin desensitization The patient is a 56 year old F with recurrent ovarian cancer (BRCA1 and BRCA2 negative) here for her sixth cycle of carboplatin desensitization protocol & Gemzar. History and treatment for ovarian cancer outlined: elsewhere in patient's outpatient records Interim history: Mrs. Goodman is clinically in remission after her 3rd cycle of chemotherapy. Her CA 125 level is now normal. She is doing well except for fatigue a week after chemotherapy. She has no stomatitis, fever or chills. She has no abdominal pain, nausea, vomiting or diarrhea. Cycle of chemotherapy again was delayed because of neutropenia. Past Medical History Past Medical History (Chronic Problems): Chronic Problems Ovarian epithelial cancer (Chronic) Bipolar disorder (manic depression) (Chronic) Tobacco use disorder (Chronic) Intra-abdominal & Pelvic Swelling, Mass, & Lump (Chronic) History of acute cystitis (Chronic) History of abdominal pain (Chronic) Allergies erythromycin base [Erythromycin Base] Allergy (Verified 01/22/17 12:09) Hives Home Medications: Ambulatory Orders Medication Instructions Recorded Lamotrigine [Lamictal] 75 mg PO DAILY 05/23/17 [place] Carbonate [[place] 300 mg PO BID 05/23/17 Carbonate ER] Morphine Sulfate [Morphine Sulfate 15 mg PO BID PRN 05/23/17 ER] Ondansetron [Zofran] 8 mg PO Q8H PRN PRN 05/23/17 Albuterol Inhaler [Ventolin Hfa] 2 puff INHALATION BID PRN PRN 05/30/17 Amlodipine [Norvasc] 5 mg PO DAILY 05/30/17 Cholecalciferol (Vitamin D3) 1,000 unit PO DAILY 05/30/17 [Vitamin D3] Docusate Sodium [Colace] 100 mg PO BID 05/30/17 Lidocaine/Prilocaine 1 applic TOPICAL UD PRN 05/30/17 [Lidocaine-Prilocaine Cream] Naproxen [Naprosyn] 500 mg PO BID PRN PRN 05/30/17 Pantoprazole Sodium [Protonix] 20 mg PO DAILY 05/30/17 Pyridoxine HCl [Vitamin B-6] 100 mg PO DAILY 06/21/17 Ascorbic Acid [Vitamin C] 500 mg PO DAILY@0800 09/17/17 Surgical History: - - Multiple surgery for ovarian cancer; 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, and 2013; Psychiatric History: Bipolar [employer] History: ovarian cancer Smoking Status: Current every day smoker Tobacco Use: Cigarettes VTE Information - Inpt Only VTE Present on Admission: No VTE Mechan Device Prophylaxis: None VTE Pharm Prophylaxis ordered?: Yes - Physical Exam General: Alert, Oriented x3, Cooperative, No apparent distress HEENT: Atraumatic, PERRLA, EOMI, Normocephalic Oral: Moist Mucosa, No Gingival or Mucosal Lesions/ Ulcerations Neck: Supple, No JVD, No Nodes Lungs: Clear to auscultation, Normal air movement, No rhonchi, No wheeze, No rales Cardiovascular: Regular rate, Regular Rhythm, Normal S1, Normal S2, No murmurs Abdomen: Bowel Sounds Present, Soft, Non Tender, Non-Distended, No Hepato-splenomegaly Extremities: No clubbing, No cyanosis, No edema Skin: No rashes, No breakdown Lymphatic: No Cervical, Supraclavicular, or Inguinal Adenopathy Neurological: Cranial nerves II-XII grossly intact, Neuro grossly intact Psych/Mental Status: Normal Affect Vital Signs Temp Pulse Resp BP Pulse Ox 98.4 F 73 18 120/76 97 09/17/17 18:14 09/17/17 18:14 09/17/17 18:14 09/17/17 18:14 09/17/17 18:14 Oxygen Delivery Method Room Air Weight: 103 lb 9.876 oz Body Mass Index (BMI) 17.2 Intake and Output for Last 24 Hours 09/15/17 09/16/17 09/17/17 23:59 23:59 23:59 Intake Total 882 / 882 Balance 882 / 882 Laboratory Tests Past 24 Hrs 09/17/17 09/17/17 09:40 09:40 WBC 5.8 RBC 3.90 L Hgb 13.3 Hct 39.9 MCV 102.3 H MCH 34.1 H MCHC 33.3 RDW 15.1 H RDW Differential 55.2 H Plt Count 317 MPV 10.9 Immature Gran % (Auto) 0.200 Neut % (Auto) 83.9 H Lymph % (Auto) 13.4 L [place] % (Auto) 2.2 Eos % (Auto) 0.0 Baso % (Auto) 0.3 Absolute Neuts (auto) 4.9 Absolute Lymphs (auto) 0.78 L Total Counted Not Reportable Sodium 140 Potassium 4.2 Chloride 110 H Carbon Dioxide 25.0 Anion Gap 5 BUN 8 Creatinine 0.70 Estim Creat Clear Calc 66.58 Est GFR (MDRD) Af Amer 110 Est GFR (MDRD) Non-Af 91 BUN/Creatinine Ratio 11.3 Glucose 155 H Calcium 9.3 Magnesium 1.8 Assessment/Plan 3rd recurrence of ovarian cancer; s/p cytoreduction and HIPEC; periportal lymph node adenopathy s/p radiation therapy -Partial response with normal CA 125 level after 3 cycles of chemotherapy. -She is tolerating chemotherapy with desensitization protocol. -Neutropenia secondary chemotherapy recovered since her last treatment. Plan: -Continue chemotherapy with carboplatin AUC=5 & gemcitabine 1000mg/m2 on day 1 & day 2 with carboplatin desensitization -Discharge home tomorrow after gemcitabine if stable -Follow-up in my office in [address]. -Follow up with gynecology teacher oncologist, Dr. Raffi Morris in September. cc: Edison Roa iii, Dr. Jaciel Morfin Code Visit OBSV E&M: [id number] Initial observation care L3
--- NOTE | 2017-09-17 19:09 | HP.PCM_ITS ---
Problem List (1) Ovarian epithelial cancer Status: Chronic Qualifiers: Qualified Code(s): C56.9 - Malignant neoplasm of unspecified ovary (2) Chemotherapy adverse reaction Status: Suspected Qualifiers: Qualified Code(s): T45.1X5D - Adverse effect of antineoplastic and immunosuppressive drugs, subsequent encounter History of Present Illness Date of Admission: 09/17/17 Chief Complaint: Chemotherapy administration with carboplatin desensitization The patient is a 56 year old F with recurrent ovarian cancer (BRCA1 and BRCA2 negative) here for her sixth cycle of carboplatin desensitization protocol & Gemzar. History and treatment for ovarian cancer outlined: elsewhere in patient's outpatient records Interim history: Mrs. Goodman is clinically in remission after her 3rd cycle of chemotherapy. Her CA 125 level is now normal. She is doing well except for fatigue a week after chemotherapy. She has no stomatitis, fever or chills. She has no abdominal pain, nausea, vomiting or diarrhea. Cycle of chemotherapy again was delayed because of neutropenia. Past Medical History Past Medical History (Chronic Problems): Chronic Problems Ovarian epithelial cancer (Chronic) Bipolar disorder (manic depression) (Chronic) Tobacco use disorder (Chronic) Intra-abdominal & Pelvic Swelling, Mass, & Lump (Chronic) History of acute cystitis (Chronic) History of abdominal pain (Chronic) Allergies erythromycin base [Erythromycin Base] Allergy (Verified 01/22/17 12:09) Hives Home Medications: Ambulatory Orders Medication Instructions Recorded Lamotrigine [Lamictal] 75 mg PO DAILY 05/23/17 [place] Carbonate [[place] 300 mg PO BID 05/23/17 Carbonate ER] Morphine Sulfate [Morphine Sulfate 15 mg PO BID PRN 05/23/17 ER] Ondansetron [Zofran] 8 mg PO Q8H PRN PRN 05/23/17 Albuterol Inhaler [Ventolin Hfa] 2 puff INHALATION BID PRN PRN 05/30/17 Amlodipine [Norvasc] 5 mg PO DAILY 05/30/17 Cholecalciferol (Vitamin D3) 1,000 unit PO DAILY 05/30/17 [Vitamin D3] Docusate Sodium [Colace] 100 mg PO BID 05/30/17 Lidocaine/Prilocaine 1 applic TOPICAL UD PRN 05/30/17 [Lidocaine-Prilocaine Cream] Naproxen [Naprosyn] 500 mg PO BID PRN PRN 05/30/17 Pantoprazole Sodium [Protonix] 20 mg PO DAILY 05/30/17 Pyridoxine HCl [Vitamin B-6] 100 mg PO DAILY 06/21/17 Ascorbic Acid [Vitamin C] 500 mg PO DAILY@0800 09/17/17 Surgical History: - - Multiple surgery for ovarian cancer; 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, and 2013; Psychiatric History: Bipolar BACK [employer] History: ovarian cancer Smoking Status: Current every day smoker Tobacco Use: Cigarettes VTE Information - Inpt Only VTE Present on Admission: No VTE Mechan Device Prophylaxis: None VTE Pharm Prophylaxis ordered?: Yes - Physical Exam General: Alert, Oriented x3, Cooperative, No apparent distress HEENT: Atraumatic, PERRLA, EOMI, Normocephalic Oral: Moist Mucosa, No Gingival or Mucosal Lesions/ Ulcerations Neck: Supple, No JVD, No Nodes Lungs: Clear to auscultation, Normal air movement, No rhonchi, No wheeze, No rales Cardiovascular: Regular rate, Regular Rhythm, Normal S1, Normal S2, No murmurs Abdomen: Bowel Sounds Present, Soft, Non Tender, Non-Distended, No Hepato- splenomegaly Extremities: No clubbing, No cyanosis, No edema Skin: No rashes, No breakdown Lymphatic: No Cervical, Supraclavicular, or Inguinal Adenopathy Neurological: Cranial nerves II-XII grossly intact, Neuro grossly intact Psych/Mental Status: Normal Affect Vital Signs Temp Pulse Resp BP Pulse Ox 98.4 F 73 18 120/76 97 09/17/17 18:14 09/17/17 18:14 09/17/17 18:14 09/17/17 18:14 09/17/17 18:14 Oxygen Delivery Method Room Air Weight: 103 lb 9.876 oz Body Mass Index (BMI) 17.2 Intake and Output for Last 24 Hours 09/15/17 09/16/17 09/17/17 23:59 23:59 23:59 Intake Total 882 / 882 Balance 882 / 882 Laboratory Tests Past 24 Hrs 09/17/17 09/17/17 09:40 09:40 WBC 5.8 RBC 3.90 L Hgb 13.3 Hct 39.9 MCV 102.3 H MCH 34.1 H MCHC 33.3 RDW 15.1 H RDW Differential 55.2 H Plt Count 317 MPV 10.9 Immature Gran % (Auto) 0.200 Neut % (Auto) 83.9 H Lymph % (Auto) 13.4 L [place] % (Auto) 2.2 Eos % (Auto) 0.0 Baso % (Auto) 0.3 Absolute Neuts (auto) 4.9 Absolute Lymphs (auto) 0.78 L Total Counted Not Reportable Sodium 140 Potassium 4.2 Chloride 110 H Carbon Dioxide 25.0 Anion Gap 5 BUN 8 Creatinine 0.70 Estim Creat Clear Calc 66.58 Est GFR (MDRD) Af Amer 110 Est GFR (MDRD) Non-Af 91 BUN/Creatinine Ratio 11.3 Glucose 155 H Calcium 9.3 Magnesium 1.8 Assessment/Plan 3rd recurrence of ovarian cancer; s/p cytoreduction and HIPEC; periportal lymph node adenopathy s/p radiation therapy -Partial response with normal CA 125 level after 3 cycles of chemotherapy. -She is tolerating chemotherapy with desensitization protocol. -Neutropenia secondary chemotherapy recovered since her last treatment. Plan: -Continue chemotherapy with carboplatin AUC=5 & gemcitabine 1000mg/m2 on day 1 & day 2 with carboplatin desensitization -Discharge home tomorrow after gemcitabine if stable -Follow-up in my office in [address]. -Follow up with educational advisor oncologist, Dr. Raffi Morris in September. cc: Edison Roa iii, Dr. Jaciel Morfin Code Visit OBSV E&M: [id number] Initial observation care L3
[2017-09-17] MEDS: morphine SR 15 MG Tablet PO (21:38)
[2017-09-17] MEDS: Pantoprazole Sodium 20 MG Tablet PO (21:38)
[2017-09-17] MEDS: Docusate Sodium 100 MG Capsule PO (21:38)
[2017-09-17] MEDS: LORazepam 2 MG/ML Syringe 0.5 MG IV (21:45)
[2017-09-17] MEDS: 0.9% NaCl VAD Flush 10 ML IV (21:46)
[2017-09-18] MEDS: 0.9% NaCl VAD Flush 10 ML IV ×2 (01:25→10:42)
[2017-09-18] MEDS: DiphenhydrAMINE 50 MG/ML Syringe IV (01:25)
[2017-09-18 01:29] VITALS: PULSE 59
[2017-09-18 01:36] VITALS: BP 109/66; PULSE 57; RESP 18; TEMP 36.6; O2SAT 98
[2017-09-18 04:22] VITALS: PULSE 48
--- NOTE | 2017-09-18 07:58 | PCM.DC.BLA ---
Discharge Summary Date of Admission: 09/17/17 Date of Discharge: 09/18/17 Summary: Patient completed chemotherapy with no complications. Follow-up instructions given to patient. Return to office in 1 month. Code Visit OBSV E&M: [id number] Observation care discharge
[2017-09-18 08:00] VITALS: BP 145/82; PULSE 58; RESP 18; TEMP 36.5; O2SAT 100
--- NOTE | 2017-09-18 08:00 | PCM.DC ---
- Discharge Diagnoses Reason(s) for Visit for Discharge Instructions: Chemotherapy treatment You will use the following diet at home:: No restrictions Your food should be the consistency of: Regular Discharge Activity: Return to Normal Activity Call your doctor if you observe: Fever of 101 or Higher - Temperature > 100.4 Allergies/Adverse Reactions: Allergies erythromycin base [Erythromycin Base] Allergy (Verified 01/22/17 12:09) Hives Medications to take at Discharge Lamotrigine [Lamictal] 75 mg PO DAILY 05/23/17 [place] Carbonate [[place] Carbonate ER] 300 mg PO BID 05/23/17 Morphine Sulfate [Morphine Sulfate ER] 15 mg PO BID PRN 05/23/17 Ondansetron [Zofran] 8 mg PO Q8H PRN PRN 05/23/17 Albuterol Inhaler [Ventolin Hfa] 2 puff INHALATION BID PRN PRN 05/30/17 Amlodipine [Norvasc] 5 mg PO DAILY 05/30/17 Cholecalciferol (Vitamin D3) [Vitamin D3] 1,000 unit PO DAILY 05/30/17 Docusate Sodium [Colace] 100 mg PO BID 05/30/17 Lidocaine/Prilocaine [Lidocaine-Prilocaine Cream] 1 applic TOPICAL UD PRN 05/30/17 Naproxen [Naprosyn] 500 mg PO BID PRN PRN 05/30/17 Pantoprazole Sodium [Protonix] 20 mg PO DAILY 05/30/17 Pyridoxine HCl [Vitamin B-6] 100 mg PO DAILY 06/21/17 Ascorbic Acid [Vitamin C] 500 mg PO DAILY@0800 09/17/17 Primary Care Physician: Edison Roa III, MD [Primary Care Provider] - Test Results: Please Follow Up With: Jaciel Morfin MD - CT scan scheduled When: 1 Month
--- NOTE | 2017-09-18 08:03 | DCINST_ITS ---
- Discharge Diagnoses Reason(s) for Visit for Discharge Instructions: Chemotherapy treatment You will use the following diet at home:: No restrictions Your food should be the consistency of: Regular Discharge Activity: Return to Normal Activity Call your doctor if you observe: Fever of 101 or Higher - Temperature > 100.4 Allergies/Adverse Reactions: Allergies erythromycin base [Erythromycin Base] Allergy (Verified 01/22/17 12:09) Hives Medications to take at Discharge Lamotrigine [Lamictal] 75 mg PO DAILY 05/23/17 [place] Carbonate [[place] Carbonate ER] 300 mg PO BID 05/23/17 Morphine Sulfate [Morphine Sulfate ER] 15 mg PO BID PRN 05/23/17 Ondansetron [Zofran] 8 mg PO Q8H PRN PRN 05/23/17 Albuterol Inhaler [Ventolin Hfa] 2 puff INHALATION BID PRN PRN 05/30/17 Amlodipine [Norvasc] 5 mg PO DAILY 05/30/17 Cholecalciferol (Vitamin D3) [Vitamin D3] 1,000 unit PO DAILY 05/30/17 Docusate Sodium [Colace] 100 mg PO BID 05/30/17 Lidocaine/Prilocaine [Lidocaine-Prilocaine Cream] 1 applic TOPICAL UD PRN Naproxen [Naprosyn] 500 mg PO BID PRN PRN 05/30/17 Pantoprazole Sodium [Protonix] 20 mg PO DAILY 05/30/17 Pyridoxine HCl [Vitamin B-6] 100 mg PO DAILY 06/21/17 Ascorbic Acid [Vitamin C] 500 mg PO DAILY@0800 09/17/17 Primary Care Physician: Edison Roa III, MD [Primary Care Provider] - Test Results: Please Follow Up With: Jaciel Morfin MD - CT scan scheduled When: 1 Month
[2017-09-18] MEDS: Pantoprazole Sodium 20 MG Tablet PO (08:35)
[2017-09-18] MEDS: Docusate Sodium 100 MG Capsule PO (08:35)
[2017-09-18] MEDS: lamoTRIgine 25 MG Tablet 75 MG PO (08:36)
== END 2017-09-18 11:01 | disposition home or self-care (01) ==
PROVIDERS: Admitting Provider Internal Medicine Hematology & Oncology; Family Provider Family Medicine; PCP Family Medicine; Visit Provider Internal Medicine Hematology & Oncology
DX: Z51.11 Encounter for antineoplastic chemotherapy (principal); C56.9 Malignant neoplasm of unspecified ovary; F17.210 Nicotine dependence, cigarettes, uncomplicated; Z79.51 Long term (current) use of inhaled steroids; Z79.891 Long term (current) use of opiate analgesic; Z79.899 Other long term (current) drug therapy
CPT/HCPCS: 80048; 83735; 85025; 96372; 96375; 96413; 96415; 96417; 99406; J7050; J9045; A4216; J2405; J3490; J9201

== ENCOUNTER 2018-07-30 17:23 | Emergency (ER) | payer MEDICARE, MEDICAID, SELFPAY ==
[2018-07-30 17:24] VITALS: BP 135/69; PULSE 68; RESP 16; TEMP 36.7; O2SAT 96; BMI 16.9
[2018-07-30 17:29] VITALS: O2SAT 96
--- NOTE | 2018-07-30 17:45 | EKG12_ITS ---
Test Reason : COUGH Blood Pressure : / mmHG Vent. Rate : 054 BPM Atrial Rate : 054 BPM P-R Int : 166 ms QRS Dur : 120 ms QT Int : 454 ms P-R-T Axes : 088 068 063 degrees QTc Int : 430 ms Sinus bradycardia Non-specific intra-ventricular conduction delay Borderline ECG Confirmed by MIGUEL PIERSON ([id number]), communications editor SARAH MARINELLI ([id number]) on 08/05/2018 3:32:22 PM Referred By: LEISA Confirmed By:MIGUEL PIERSON
--- NOTE | 2018-07-30 17:45 | RAD_ITS ---
STUDY: X-RAY CHEST REASON FOR EXAM: Female, 57 years old. Cough. Shortness of breath. TECHNIQUE: PA and lateral views of the chest. COMPARISON: August 21, 2013. FINDINGS: There is a left subclavian Port-A-Cath with its tip in the distal superior vena cava. There is hyperinflation of the lungs consistent with chronic obstructive lung disease (COPD). There is a small calcified granuloma at the right lung base unchanged from prior study.. There is no demonstrated pleural abnormality. Normal size heart. Normal mediastinum and sweta. Normal visualized pulmonary arteries. Normal visualized aortic arch and descending thoracic aorta. No visualized osseous changes. There is no demonstrated abnormality of the visualized soft tissue structures of the upper abdomen. RAD/Chest PA and Lateral IMPRESSION: 1. Left subclavian Port-A-Cath not previously noted. 2. Emphysematous changes lungs without interval change Electronically Signed: Gomez Fried DO at 19:37 EDT Tel [phone], Service support ,
--- NOTE | 2018-07-30 17:47 | ED.DCSUM_ITS ---
- ER Visit Summary Date of Service: 07/30/18 Chief Complaint: Cough History of Present Illness: The patient is a 57 F with a one-week history of cough with clear sputum production. She denies fever or chills. She has rare sharp brief chest pain on the left lateral chest. She denies chest pain currently. She is currently on chemotherapy for ovarian cancer. She gets treatment once every 4 weeks and her last therapy was July 19. Patient was seen at [facility] and sent to the ER for further testing. Physical Examination: Vital signs unremarkable. Patient is afebrile. Patient sitting upright in bed no acute distress. She is nontoxic appearing. Heart is regular rate and rhythm. Lung sounds are clear. Abdomen is soft and nontender. Extremity examination reveals no calf tenderness or edema. Test Results: EKG is sinus bradycardia at 54 bpm with no acute ischemia. Two- view chest x-ray shows left subclavian Port-A-Cath in place. Emphysematous changes noted. CBC is normal. Chemistry studies remarkable only for BUN 26. Troponin is less than 0.015. D-dimer is elevated at 0.65. CTA of the chest is obtained and reveals no evidence of PE or dissection. No infiltrate. Emphysematous changes without masses. Emergency Department Course and Treatment: Patient is given IV fluids here. Test results are discussed with her. With her symptoms and being on chemotherapy we will treat her with a course of doxycycline for bronchitis. She has an appointment to follow-up with her oncologist in 3 days. Treatment Plan: [] Disposition: Discharge Impression: Bronchitis This note was generated with [employer] dictation software. It may contain incorrect words, spelling, and punctuation that were not noted in review of the chart prior to signing ED Disposition - Plan for ED Patient: Disposition: Home or Assisted Living Instructions: ED Upper Resp Infec Abx Tx Prescriptions: Doxycycline 100 mg PO BID #20 capsule Referrals: Edison Roa III, MD [Primary Care Provider] - 1 Week
[2018-07-30 18:31] LABS: Absolute Lymphocyte Count 3.73 X10^3/ul (0.83-4.51); Basophil# 0.05 X10^3/uL; Basophil% 0.5 % (0-1); Eosinophil# 0.22 X10^3/uL; Eosinophils% 2.3 % (0-5); Hematocrit 40.8 % (37-47); Hemoglobin 13.5 g/dl (12.0-15.0); Lymphocyte # 3.73 X10^3/ul (4.0); Lymphocyte % 39.1 % (19-41); Mean Corp Hgb Conc 33.1 g/gl (32-36); Mean Corpuscular Hgb 33.3 pg (27.0-32.0); Mean Corpuscular Volume 100.5 fL (81-99); Mean Platelet Vol. 11.5 fl (6.2-12.0); Monocyte# 0.55 X10^3/uL; Monocyte% 5.8 % (0-10); Neutrophil # 4.98 X10^3/uL (2.7-7.7); Neutrophil % 52.2 % (47-70); POSITIVE COUNT NO; POSITIVE DIFFERENTIAL NO; POSITIVE MORPHOLOGY NO; Platelet Count 275 K/mm3 (150-450); RBC Distribution Width CV 13.6 % (11.6-14.6); RBC Distribution Width SD 50.2 fl (35.1-43.9); Red Blood Count 4.06 M/mm3 (4.2-5.4); White Blood Count 9.5 K/mm3 (4.4-11.0)
[2018-07-30 18:54] LABS: Anion Gap 2 (5-15); BUN 26 mg/dL (7-18); BUN/Creat Ratio 26.9 RATIO (10-20); Calcium,Total 8.8 mg/dL (8.5-10.1); Chloride 109 mmol/L (98-107); Creatinine, Serum 0.97 mg/dL (0.55-1.02); EST Glomerular Filtration Rate 63 mL/min (>60); Est Glom Filt Rate - Afr Amer 76 mL/min (>60); Estimated Creatinine Clearance 46.67 ml/min; Glucose 74 mg/dL (74-106); Potassium 5.1 mmol/L (3.5-5.1); Sodium Level 135 mmol/L (136-145)
[2018-07-30 19:07] LABS: D-Dimer Quantitative (DVT/PE) 0.65 FEU/ug/m (0.27-0.49)
--- NOTE | 2018-07-30 19:09 | CT_ITS ---
STUDY: CTA CHEST REASON FOR EXAM: Female, 57 years old. Cough. Chest pain. Currently receiving chemotherapy for ovarian cancer. RADIATION DOSAGE (If Supplied By Facility): CTDIvol = ( 3.19 ) mGy, DLP = ( 122.31 ) mGycm TECHNIQUE: The examination was performed with the intravenous administration of 75ML IV Isovue 370. Post-processing of the angiographic images was performed, with multiplanar reformation and 3D reconstruction. Individualized dose optimization techniques were used for this CT. COMPARISON: Chest, July 30, 2018. FINDINGS: There is a left jugular Port-A-Cath with its tip in the superior vena cava. Normal enhancement of the main pulmonary artery and right and left pulmonary arteries. Normal enhancement of the bilateral peripheral pulmonary arteries. There is no demonstrated pulmonary embolism. Normal thoracic aorta and visualized great vessels. There is no demonstrated aortic dissection. Normal heart and pericardium. Normal mediastinum. Normal hilar regions. Normal visualized trachea and bronchi. The lungs are hyper expanded, with flattening of the hemidiaphragms. There are diffuse emphysematous changes lungs. There is mild right apical pleural scarring scarring with a bullae. There is no focal mass or infiltrate. Normal pleura. Normal chest wall structures. Minimal degenerative changes of the thoracic spine. Question mild hepatomegaly. CT/CTA Chest W/WO Contrast IMPRESSION: 1. No evidence of pulmonary embolus. 2. No aortic dissection or aneurysm. 3. Emphysematous changes of lungs without mass. 4. Question hepatomegaly. Electronically Signed: Gomez Fried DO at 19:49 EDT Tel [phone], Service support ,
[2018-07-30 19:25] VITALS: BP 125/62; PULSE 58; RESP 18; O2SAT 98
[2018-07-30] MEDS: 0.9% Normal Saline 1,000 ML 150 ML IV (19:40)
[2018-07-30 19:41] VITALS: TEMP 36.9
[2018-07-30] MEDS: Doxycycline 100 MG CAPSULE PO (20:14)
[2018-07-30 20:20] VITALS: BP 129/60; PULSE 56; RESP 19; TEMP 36.9; O2SAT 98
== END 2018-07-30 20:24 | disposition home or self-care (01) ==
PROVIDERS: Emergency Provider Emergency Medicine; Family Provider Family Medicine; PCP Family Medicine
DX: J40 Bronchitis, not specified as acute or chronic (principal); R79.89 Other specified abnormal findings of blood chemistry; J44.9 Chronic obstructive pulmonary disease, unspecified; I10 Essential (primary) hypertension; C56.9 Malignant neoplasm of unspecified ovary; F41.9 Anxiety disorder, unspecified; F32.9 Major depressive disorder, single episode, unspecified; F31.9 Bipolar disorder, unspecified; Z95.828 Presence of other vascular implants and grafts; Z79.899 Other long term (current) drug therapy; Z79.82 Long term (current) use of aspirin; Z72.0 Tobacco use
CPT/HCPCS: 36591; 71046; 71275; 80048; 84484; 85025; 85379; 93005; 96360; 99284; J7030; Q9967; A4216

== ENCOUNTER 2019-12-17 08:13 | Observation (INO) | payer MEDICARE, MEDICAID, SELFPAY ==
[2019-12-17] VITALS (35 sets, daily range): BP systolic 118–138; BP diastolic 52–91; PULSE 74–96; RESP 12–22; TEMP 36.3–37.2; O2SAT 94–99; BMI 16.9
[2019-12-17 08:40] LABS: Absolute Lymphocyte Count 1.58 X10^3/uL (0.83-4.51); Absolute Neutrophil Count 12.1 X10^3/uL (2.0-7.7); Basophil# 0.02 X10^3/uL; Basophil% 0.1 % (0-1); Hematocrit 45.9 % (37-47); Hemoglobin 15.1 g/dL (12.0-15.0); Lymphocyte # 1.58 X10^3/ul (4.0); Lymphocyte % 11.1 % (19-41); Mean Corp Hgb Conc 32.9 g/dL (32-36); Mean Corpuscular Hgb 32.2 pg (27.0-32.0); Mean Corpuscular Volume 97.9 fL (81-99); Monocyte% 3.5 % (0-10); NRBC Flagged by Analyzer 0 % (0-5); Neutrophil # 12.11 X10^3/uL (2.7-7.7); Neutrophil % 84.7 % (47-70); Platelet Count 317 K/mm3 (150-450); RBC Distribution Width SD 46.1 fl (35.1-43.9); Red Blood Count 4.69 M/mm3 (4.2-5.4); White Blood Count 14.3 K/mm3 (4.4-11.0)
[2019-12-17 08:54] LABS: Anion Gap 7 (5-15); BUN 33 mg/dL (7-18); BUN/Creat Ratio 20.9 RATIO (10-20); Chloride 104 mmol/L (98-107); Creatinine, Serum 1.58 mg/dL (0.55-1.02); EST Glomerular Filtration Rate 36 mL/min (>60); Est Glom Filt Rate - Afr Amer 43 mL/min (>60); Estimated Creatinine Clearance 27.39 ml/min; Glucose 173 mg/dL (74-106); Potassium 4.6 mmol/L (3.5-5.1); Sodium Level 130 mmol/L (136-145)
[2019-12-17 10:26] LABS: Color, Urine Yellow (Yellow); Glucose, Dipstick Normal (Normal); Ketone-Dipstick Negative (Negative); Leukocyte Esterase-Dipstick 25 /ul (Negative); Nitrite-Dipstick Negative (Negative); Occult Blood-Urine Negative /ul (Negative); Protein-Dipstick 500 mg/dl (Negative); Specific Gravity, Urine 1.015 (1.002-1.030); Urine Bilirubin Dipstick Negative (Negative); Urine Clarity Clear (Clear); Urine Urobilinogen Normal (Normal)
[2019-12-17] MEDS: 0.9 % NaCl (Sterile) Posiflush 10 mL IV (10:34)
[2019-12-17] MEDS: Lisinopril 10 MG Tablet PO (10:48)
--- NOTE | 2019-12-17 11:09 | PCM.HP.STD ---
Problem List (1) Ovarian epithelial cancer Status: Chronic Qualifiers: Laterality: unspecified laterality Comment: Bilateral ovarian cancer (BRCA1 & BRCA2 negative) (2) Chemotherapy adverse reaction Status: Suspected Qualifiers: Encounter type: sequela Qualified Code(s): T45.1X5S - Adverse effect of antineoplastic and immunosuppressive drugs, sequela Comment: Carboplatin (3) Bipolar disorder (manic depression) Status: Chronic Qualifiers: Active/Remission status: in remission of unspecified degree (4) Tobacco use disorder Status: Chronic History of Present Illness Date of Admission: 12/17/19 Chief Complaint: Administration of chemotherapy with carboplatin desensitization protocol. The patient is a 58 year old F with recurrent ovarian cancer here for palliative chemotherapy with carboplatin desensitization protocol. She was initially diagnosed with ovarian cancer in January 2012. Patient had exploratory laparotomy debulking with bilateral oophorectomy and salpingectomy and hysterectomy. She underwent multiple course of chemotherapy including radiation therapy for recurrence ovarian cancer. She developed carboplatin infusion reaction in 2012. She was subsequently retreated with carboplatin gemcitabine through desensitization in 2017 and achieved complete remission. She has been on maintenance Avastin since October 2017 until recently when she had recurrence disease. She is now admitted for carboplatin sensitization protocol. Past Medical History Past Medical History (Chronic Problems): Chronic Problems Ovarian epithelial cancer (Chronic) Bilateral ovarian cancer (BRCA1 & BRCA2 negative) Bipolar disorder (manic depression) (Chronic) Tobacco use disorder (Chronic) Intra-abdominal & Pelvic Swelling, Mass, & Lump (Chronic) History of acute cystitis (Chronic) History of abdominal pain (Chronic) Allergies erythromycin base [Erythromycin Base] Allergy (Verified 12/17/19 08:26) Hives Home Medications: Ambulatory Orders Medication Instructions Recorded RX: Lamotrigine [Lamictal] 100 mg PO DAILY 05/23/17 RX: Ondansetron [Zofran] 8 mg PO Q8H PRN PRN 05/23/17 RX: Albuterol Inhaler [Ventolin 2 puff INHALATION Q6H PRN PRN 05/30/17 Hfa] RX: Amlodipine [Norvasc] 10 mg PO DAILY 05/30/17 RX: Cholecalciferol (Vitamin D3) 1,000 unit PO DAILY 05/30/17 [Vitamin D3] RX: Docusate Sodium [Colace] 100 mg PO BID 05/30/17 RX: Lidocaine/Prilocaine 1 applic TOPICAL UD PRN 05/30/17 [Lidocaine-Prilocaine Cream] RX: Naproxen [Naprosyn] 500 mg PO BID PRN PRN 05/30/17 RX: Pantoprazole Sodium [Protonix] 20 mg PO DAILY PRN 05/30/17 RX: Pyridoxine HCl [Vitamin B-6] 100 mg PO DAILY 06/21/17 Levothyroxine [Synthroid] 25 mcg PO DAILY 07/30/18 Lisinopril [Zestril] 10 mg PO 1800 07/30/18 Oxycodone HCl/Acetaminophen 1 tablet PO Q4H PRN PRN 07/30/18 [Percocet 5/325] Prochlorperazine Maleate 10 mg PO Q6H PRN PRN 07/30/18 [Compazine] RX: Aspirin E.C. [Ecotrin] 81 mg PO DAILY@0800 07/30/18 Acetaminophen [Pain Relief] 650 mg PO Q4H PRN PRN 12/17/19 Dexamethasone [Decadron] 4 mg PO BIDCM PRN 12/17/19 DiphenhydrAMINE [Benadryl] 50 mg PO Q6H PRN PRN 12/17/19 RX: Olanzapine 10 mg PO QHS 12/17/19 Surgical History: - - Multiple surgery for ovarian cancer; 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, and 2013; Psychiatric History: Bipolar [employer] History: ovarian cancer Smoking Status: Current every day smoker VTE Information - Inpt Only VTE Present on Admission: No VTE Pharm Prophylaxis ordered?: Yes - Physical Exam Vitals/I&O's: Weight: 98 lb 8.746 oz Body Mass Index (BMI) 16.9 General: Alert, Oriented x3, No apparent distress HEENT: Atraumatic, PERRLA, EOMI, Normocephalic Oral: Moist Mucosa, No Gingival or Mucosal Lesions/ Ulcerations Neck: Supple, No JVD, No Nodes Lungs: Clear to auscultation, Normal air movement, No rhonchi, No wheeze, No rales Cardiovascular: Regular rate, Regular Rhythm, Normal S1, Normal S2, No murmurs Abdomen: Bowel Sounds Present, Non Tender, Non-Distended, No Hepato-splenomegaly Extremities: No clubbing, No cyanosis, No edema Skin: No rashes Musculoskeletal: No Tenderness to Palpation of Joints or Extremities Lymphatic: No Cervical, Supraclavicular, or Inguinal Adenopathy Neurological: Cranial nerves II-XII grossly intact, Deep Tendon Reflexes 2+/4 and Symmetrical, Neuro grossly intact Psych/Mental Status: Normal Affect Laboratory Results 12/17/19 08:34: WBC 14.3 H, RBC 4.69, Hgb 15.1 H, Hct 45.9, MCV 97.9, MCH 32.2 H, MCHC 32.9, RDW Std Deviation 46.1 H, RDW Coeff of Aracely 13.0, Plt Count 317, MPV 11.0, Immature Gran % (Auto) 0.600, Neut % (Auto) 84.7 H, Lymph % (Auto) 11.1 L, [place] % (Auto) 3.5, Eos % (Auto) 0.0, Baso % (Auto) 0.1, Absolute Neuts (auto) 12.1 H, Absolute Lymphs (auto) 1.58, Nucleated RBC % 0 12/17/19 08:34: Sodium 130 L, Potassium 4.6, Chloride 104, Carbon Dioxide 19.0 L, Anion Gap 7, BUN 33 H, Creatinine 1.58 H, Estim Creat Clear Calc 27.39, Est GFR (MDRD) Af Amer 43 L, Est GFR (MDRD) Non-Af 36 L, BUN/Creatinine Ratio 20.9 H, Glucose 173 H, Calcium 9.0 12/17/19 10:05: Urine Color Yellow, Urine Clarity Clear, Urine pH 5.0, Ur Specific [place] 1.015, Urine Protein 500 H, Urine Glucose (UA) Normal, Urine Ketones Negative, Urine Occult Blood Negative, Urine Nitrite Negative, Urine Bilirubin Negative, Urine Urobilinogen Normal, Ur Leukocyte Esterase 25 H Current Medications Albuterol Sulfate (Ventolin Aerosols) 2.5 mg INHALATION Q4H PRN PRN Reason: SOB/WHEEZING Alprazolam (Xanax) 0.25 mg PO BID PRN PRN Reason: ANXIETY Amlodipine Besylate (Norvasc) 10 mg PO DAILY [facility] Aspirin (Ecotrin) 81 mg PO DAILY@0800 [facility] Diphenhydramine HCl (Benadryl) 50 mg IV X1 PRN PRN Reason: .HYPERSENSITIVITY/ANAPHYLAXIS Epinephrine HCl (Symjepi) 0.3 mg IM X1 PRN PRN Reason: .HYPERSENSITIVITY/ANAPHYLAXIS Heparin Sodium (Beef Lung) () 50 units IV UD PRN PRN Reason: Port-a-Cath (VAD)Heparin Flush Hydrocortisone Sodium Succinate (Solu-Cortef) 100 mg IV X1 PRN PRN Reason: .HYPERSENSITIVITY/ANAPHYLAXIS Sodium Chloride () 250 mls @ 15 mls/hr IV .[id number] PRN PRN Reason: Saline Flush Sodium Chloride () 250 mls @ 15 mls/hr IV .[id number] PRN PRN Reason: Additional IVPB Infusion Sodium Chloride () 1,000 mls @ 999 mls/hr IV .Q1H1M PRN PRN Reason: HYPOTENSION Sodium Chloride () 500 mls @ 500 mls/hr IV .Q1H [facility] Stop: 12/17/19 11:44 Last Admin: 12/17/19 10:48 Dose: 500 mls/hr Documented by: Lamotrigine (Lamictal) 100 mg PO DAILY [facility] Levothyroxine Sodium (Synthroid) 25 mcg PO DAILY@0600 [facility] Lisinopril (Zestril) 10 mg PO DAILY [facility] Last Admin: 12/17/19 10:48 Dose: 10 mg Documented by: Lorazepam (Ativan) 0.5 mg IV Q4H PRN PRN Reason: .NAUSEA/VOMITING Nicotine (Nicoderm Cq (Pbkc)) 21 mg TRANSDERM. DAILY [facility] Last Admin: 12/17/19 10:48 Dose: 21 mg Documented by: Ondansetron HCl (Zofran) 8 mg PO Q8H PRN PRN Reason: NAUSEA/VOMITING Ondansetron HCl (Zofran) 8 mg IV Q8H PRN PRN Reason: NAUSEA/VOMITING Oxycodone HCl (Oxyir) 5 mg PO Q6H PRN PRN Reason: Pain Score 6-10/10 Prochlorperazine Edisylate (Compazine Iv) 10 mg IV Q6H PRN PRN Reason: NAUSEA/VOMITING Sertraline HCl (Zoloft) 50 mg PO DAILY [facility] Last Admin: 12/17/19 10:52 Dose: Not Given Documented by: Sodium Chloride () 10 - 40 ml IV UD PRN PRN Reason: Port-a-Cath (VAD) Flush Sodium Chloride (0.9% Nacl (Sterile) Posiflush) 10 - 40 ml IV UD PRN PRN Reason: Port access or dressing change Last Admin: 12/17/19 10:34 Dose: 20 ml Documented by: Assessment/Plan ASSESSMENT: 56-year-old female with recurrent ovarian cancer (BRCA1 & BRCA2 ) status post optimal cytoreduction and HIPEC with periportal lymph no adenopathy status post RT on Avastin consolidation therapy with recurrence disease. -History of [place] infusion reaction -Anxiety and bipolar disorder -Tobacco addiction. -Acute renal injury possible dehydration PLANS: -IV hydration normal saline 500 cc over an hour before chemotherapy -Adjust carboplatin dosing proceed with desensitization protocol premedication. -Repeat BMP tomorrow and gemcitabine tomorrow. -Continue Zoloft and Xanax as needed -NicoDerm patch 21mg Topical daily. cc: Dr. Jaciel Morfin, Dr. Edison Roa III, Dr. Raffi Morris Jr.
[2019-12-17] MEDS: Ondansetron 4 MG/2 ML Vial 8 MG IV (11:21)
[2019-12-17] MEDS: Famotidine 20mg IV Push Syringe Q24 300 MG IV (11:21)
[2019-12-17] MEDS: Acetaminophen 500 MG Tablet PO (15:05)
[2019-12-17] MEDS: Docusate Sodium 100 MG Capsule PO ×2 (15:05→22:40)
[2019-12-17] MEDS: Albuterol 2.5 MG/3 ML VIAL.NEB. INHALATION (16:13)
[2019-12-18 03:00] VITALS: PULSE 67
[2019-12-18 03:53] VITALS: BP 146/90; PULSE 70; RESP 17; TEMP 36.7; O2SAT 97
[2019-12-18] MEDS: Levothyroxine 25 MCG TABLET PO (05:40)
[2019-12-18] MEDS: 0.9% Saline Lock 10 ML Syringe IV ×4 (05:40→10:46)
[2019-12-18 07:00] VITALS: PULSE 72
--- NOTE | 2019-12-18 07:16 | PCM.DC.SUM ---
Discharge Date and Diagnosis Date of Admission: 12/17/19 Date of Discharge: 12/18/19 - Primary Discharge Diagnosis Acute Problems: Acute renal injury secondary to dehydration - Secondary Discharge Diagnosis Chronic Problems: Chronic Problems Ovarian epithelial cancer (Chronic) Bilateral ovarian cancer (BRCA1 & BRCA2 negative) Bipolar disorder (manic depression) (Chronic) Tobacco use disorder (Chronic) Intra-abdominal & Pelvic Swelling, Mass, & Lump (Chronic) History of acute cystitis (Chronic) History of abdominal pain (Chronic) Hospital Course and Treatment Operations: None Procedures: - - Chemotherapy: Carboplatin (desensitization protocol) & gemcitabine Summary of Care Provided: The patient is a 59 year old F with recurrent ovarian cancer undergoing palliative chemotherapy with gemcitabine and carboplatin. She had an elevated BUN/creatinine on admission but improved after IV hydration. No problems or reaction from carboplatin infusion, She was sent home after chemotherapy completed with instruction to continue dexamethasone 8mg twice daily x 2 days after chemotherapy. Resume all previous medication at home. - Physical Exam Vitals/I&O's: Vital Signs Temp Pulse Resp BP Pulse Ox 98.0 F 70 17 146/90 H 97 12/18/19 03:53 12/18/19 03:53 12/18/19 03:53 12/18/19 03:53 12/18/19 03:53 Oxygen Delivery Method Room Air Weight: 98 lb 8.746 oz Body Mass Index (BMI) 16.9 Intake and Output for Last 24 Hours 12/16/19 12/17/19 12/18/19 23:59 23:59 23:59 Intake Total 2999.83 / 2999.83 1013.17 / 1013.17 Balance 2999.83 / 2999.83 1013.17 / 1013.17 General: Alert, Oriented x3, No apparent distress HEENT: Atraumatic, PERRLA, EOMI, Normocephalic Oral: Moist Mucosa, No Gingival or Mucosal Lesions/ Ulcerations Neck: Supple, No JVD Lungs: Clear to auscultation, Normal air movement, No rhonchi, No wheeze, No rales Cardiovascular: Regular rate, Regular Rhythm, Normal S1, Normal S2, No murmurs Abdomen: Bowel Sounds Present, Soft, Non Tender, No Hepato-splenomegaly Extremities: No clubbing, No cyanosis, No edema Skin: No rashes, No breakdown Lymphatic: No Cervical, Supraclavicular, or Inguinal Adenopathy Neurological: Neuro grossly intact Psych/Mental Status: Normal Affect, Appropriate Laboratory Results 12/17/19 08:34: WBC 14.3 H, RBC 4.69, Hgb 15.1 H, Hct 45.9, MCV 97.9, MCH 32.2 H, MCHC 32.9, RDW Std Deviation 46.1 H, RDW Coeff of Aracely 13.0, Plt Count 317, MPV 11.0, Immature Gran % (Auto) 0.600, Neut % (Auto) 84.7 H, Lymph % (Auto) 11.1 L, [place] % (Auto) 3.5, Eos % (Auto) 0.0, Baso % (Auto) 0.1, Absolute Neuts (auto) 12.1 H, Absolute Lymphs (auto) 1.58, Nucleated RBC % 0 12/17/19 08:34: Sodium 130 L, Potassium 4.6, Chloride 104, Carbon Dioxide 19.0 L, Anion Gap 7, BUN 33 H, Creatinine 1.58 H, Estim Creat Clear Calc 27.39, Est GFR (MDRD) Af Amer 43 L, Est GFR (MDRD) Non-Af 36 L, BUN/Creatinine Ratio 20.9 H, Glucose 173 H, Calcium 9.0 12/17/19 10:05: Urine Color Yellow, Urine Clarity Clear, Urine pH 5.0, Ur Specific [place] 1.015, Urine Protein 500 H, Urine Glucose (UA) Normal, Urine Ketones Negative, Urine Occult Blood Negative, Urine Nitrite Negative, Urine Bilirubin Negative, Urine Urobilinogen Normal, Ur Leukocyte Esterase 25 H 12/18/19 06:42: Sodium Pending, Potassium Pending, Chloride Pending, Carbon Dioxide Pending, Anion Gap Pending, BUN Pending, Creatinine Pending, Est GFR (MDRD) Af Amer Pending, Est GFR (MDRD) Non-Af Pending, BUN/Creatinine Ratio Pending, Glucose Pending, Calcium Pending Current Medications Acetaminophen (Tylenol) 500 mg PO Q6H PRN PRN PRN Reason: HEADACHE Last Admin: 12/17/19 15:05 Dose: 500 mg Documented by: Albuterol Sulfate (Ventolin Aerosols) 2.5 mg INHALATION Q4H PRN PRN Reason: SOB/WHEEZING Last Admin: 12/17/19 16:13 Dose: 2.5 mg Documented by: Alprazolam (Xanax) 0.25 mg PO BID PRN PRN Reason: ANXIETY Amlodipine Besylate (Norvasc) 10 mg PO DAILY [facility] Aspirin (Ecotrin) 81 mg PO DAILY@0800 [facility] Diphenhydramine HCl (Benadryl) 50 mg IV X1 PRN PRN Reason: .HYPERSENSITIVITY/ANAPHYLAXIS Docusate Sodium (Colace) 100 mg PO BID [facility] Last Admin: 12/17/19 22:40 Dose: 100 mg Documented by: Epinephrine HCl (Symjepi) 0.3 mg IM X1 PRN PRN Reason: .HYPERSENSITIVITY/ANAPHYLAXIS Heparin Sodium (Beef Lung) () 50 units IV UD PRN PRN Reason: Port-a-Cath (VAD)Heparin Flush Hydrocortisone Sodium Succinate (Solu-Cortef) 100 mg IV X1 PRN PRN Reason: .HYPERSENSITIVITY/ANAPHYLAXIS Sodium Chloride () 250 mls @ 15 mls/hr IV .[id number] PRN PRN Reason: Saline Flush Last Infusion: 12/17/19 12:30 Dose: 0 mls/hr Documented by: Sodium Chloride () 250 mls @ 15 mls/hr IV .[id number] PRN PRN Reason: Additional IVPB Infusion Sodium Chloride () 1,000 mls @ 999 mls/hr IV .Q1H1M PRN PRN Reason: HYPOTENSION Carboplatin 105 mg/ Dextrose 1,010.5 mls @ 1.33 mls/hr IV X1 ONE; Protocol Stop: 01/18/20 03:46 Last Titration: 12/17/19 22:29 Dose: Infused Documented by: Lamotrigine (Lamictal) 100 mg PO DAILY [facility] Levothyroxine Sodium (Synthroid) 25 mcg PO DAILY@0600 [facility] Last Admin: 12/18/19 05:40 Dose: 25 mcg Documented by: Lisinopril (Zestril) 10 mg PO DAILY [facility] Last Admin: 12/17/19 10:48 Dose: 10 mg Documented by: Lorazepam (Ativan) 0.5 mg IV Q4H PRN PRN Reason: .NAUSEA/VOMITING Nicotine (Nicoderm Cq (Pbkc)) 21 mg TRANSDERM. DAILY [facility] Last Admin: 12/17/19 10:48 Dose: 21 mg Documented by: Ondansetron HCl (Zofran) 8 mg PO Q8H PRN PRN Reason: NAUSEA/VOMITING Ondansetron HCl (Zofran) 8 mg IV Q8H PRN PRN Reason: NAUSEA/VOMITING Oxycodone HCl (Oxyir) 5 mg PO Q6H PRN PRN Reason: Pain Score 6-10/10 Prochlorperazine Edisylate (Compazine Iv) 10 mg IV Q6H PRN PRN Reason: NAUSEA/VOMITING Sodium Chloride () 10 - 40 ml IV UD PRN PRN Reason: Port-a-Cath (VAD) Flush Last Admin: 12/18/19 05:40 Dose: 20 ml Documented by: Sodium Chloride (0.9% Nacl (Sterile) Posiflush) 10 - 40 ml IV UD PRN PRN Reason: Port access or dressing change Last Admin: 12/17/19 10:34 Dose: 20 ml Documented by: Discharge Activity: Return to Normal Activity Call your doctor if you observe: Fever of 101 or Higher Home Medications: Medications to take at Discharge Lamotrigine [Lamictal] 100 mg PO DAILY 05/23/17 Ondansetron [Zofran] 8 mg PO Q8H PRN PRN 05/23/17 Albuterol Inhaler [Ventolin Hfa] 2 puff INHALATION Q6H PRN PRN 05/30/17 Amlodipine [Norvasc] 10 mg PO DAILY 05/30/17 Cholecalciferol (Vitamin D3) [Vitamin D3] 1,000 unit PO DAILY 05/30/17 Docusate Sodium [Colace] 100 mg PO BID 05/30/17 Lidocaine/Prilocaine [Lidocaine-Prilocaine Cream] 1 applic TOPICAL UD PRN 05/30/17 Naproxen [Naprosyn] 500 mg PO BID PRN PRN 05/30/17 Pantoprazole Sodium [Protonix] 20 mg PO DAILY PRN 05/30/17 Pyridoxine HCl [Vitamin B-6] 100 mg PO DAILY 06/21/17 Aspirin E.C. [Ecotrin] 81 mg PO DAILY@0800 07/30/18 Levothyroxine [Synthroid] 25 mcg PO DAILY 07/30/18 Lisinopril [Zestril] 10 mg PO 1800 07/30/18 Oxycodone HCl/Acetaminophen [Percocet 5/325] 1 tablet PO Q4H PRN PRN 07/30/18 Prochlorperazine Maleate [Compazine] 10 mg PO Q6H PRN PRN 07/30/18 Acetaminophen [Pain Relief] 650 mg PO Q4H PRN PRN 12/17/19 Dexamethasone [Decadron] 4 mg PO BIDCM PRN 12/17/19 DiphenhydrAMINE [Benadryl] 50 mg PO Q6H PRN PRN 12/17/19 Olanzapine 10 mg PO QHS 12/17/19 Primary Care Physician: Edison Roa III, MD [Primary Care Provider] - Please Follow Up With: Jaciel Morfin MD When: In 3 weeks prior to her next cycle of chemotherapy Disposition: Home Minutes spent on discharge:: 25 Patient Condition:: Good Medical Necessity - Tobacco Use Smoking Status: Current every day smoker Meaningful Use Info Meaningful Use Diagnoses (Choose all that apply): None applicable Inpatient E&M: 91462 [facility]
--- NOTE | 2019-12-18 07:24 | DCINST_ITS ---
- Discharge Diagnoses Current Active Problems: Recurrent ovarian cancer Reason(s) for Visit for Discharge Instructions: Chemotherapy You will use the following diet at home:: No restrictions Your food should be the consistency of: Regular Discharge Activity: Return to Normal Activity Call your doctor if you observe: Fever of 101 or Higher Allergies/Adverse Reactions: Allergies erythromycin base [Erythromycin Base] Allergy (Verified 12/17/19 08:26) Hives Medications to take at Discharge Lamotrigine [Lamictal] 100 mg PO DAILY 05/23/17 Ondansetron [Zofran] 8 mg PO Q8H PRN PRN 05/23/17 Albuterol Inhaler [Ventolin Hfa] 2 puff INHALATION Q6H PRN PRN 05/30/17 Amlodipine [Norvasc] 10 mg PO DAILY 05/30/17 Cholecalciferol (Vitamin D3) [Vitamin D3] 1,000 unit PO DAILY 05/30/17 Docusate Sodium [Colace] 100 mg PO BID 05/30/17 Lidocaine/Prilocaine [Lidocaine-Prilocaine Cream] 1 applic TOPICAL UD PRN 05/30/17 Naproxen [Naprosyn] 500 mg PO BID PRN PRN 05/30/17 Pantoprazole Sodium [Protonix] 20 mg PO DAILY PRN 05/30/17 Pyridoxine HCl [Vitamin B-6] 100 mg PO DAILY 06/21/17 Aspirin E.C. [Ecotrin] 81 mg PO DAILY@0800 07/30/18 Levothyroxine [Synthroid] 25 mcg PO DAILY 07/30/18 Lisinopril [Zestril] 10 mg PO 1800 07/30/18 Oxycodone HCl/Acetaminophen [Percocet 5/325] 1 tablet PO Q4H PRN PRN 07/30/18 Prochlorperazine Maleate [Compazine] 10 mg PO Q6H PRN PRN 07/30/18 Acetaminophen [Pain Relief] 650 mg PO Q4H PRN PRN 12/17/19 Dexamethasone [Decadron] 4 mg PO BIDCM PRN 12/17/19 DiphenhydrAMINE [Benadryl] 50 mg PO Q6H PRN PRN 12/17/19 Olanzapine 10 mg PO QHS 12/17/19 Primary Care Physician: Edison Roa III, MD [Primary Care Provider] - Test Results: Test results from this visit will be discussed in further detail at your follow- up appointment, if applicable. Please Follow Up With: Jaciel Morfin MD When: In 3 weeks prior to her next cycle of chemotherapy
[2019-12-18 07:33] LABS: Anion Gap 4 (5-15); BUN 40 mg/dL (7-18); BUN/Creat Ratio 34.5 RATIO (10-20); Chloride 105 mmol/L (98-107); Creatinine, Serum 1.16 mg/dL (0.55-1.02); EST Glomerular Filtration Rate 51 mL/min (>60); Est Glom Filt Rate - Afr Amer 62 mL/min (>60); Estimated Creatinine Clearance 36.85 ml/min; Glucose 84 mg/dL (74-106); Potassium 4.6 mmol/L (3.5-5.1); Sodium Level 130 mmol/L (136-145)
[2019-12-18 07:39] VITALS: BP 148/83; PULSE 68; RESP 16; TEMP 36.9; O2SAT 97
[2019-12-18 07:44] VITALS: RESP 16; O2SAT 97
[2019-12-18] MEDS: Ondansetron 4 MG/2 ML Vial 8 MG IV (08:27)
[2019-12-18] MEDS: Aspirin E.C. 81 MG Tablet PO (08:31)
[2019-12-18] MEDS: Docusate Sodium 100 MG Capsule PO (08:31)
--- NOTE | 2019-12-18 10:19 | PHA.DC.MR ---
Pharmacy Service has performed discharge medication reconciliation for this patient. The patient's discharge medication list was reviewed for discrepancies and discrepancies were resolved. Home Medications Lamotrigine [Lamictal] 100 mg PO DAILY 05/23/17 Ondansetron [Zofran] 8 mg PO Q8H PRN PRN 05/23/17 Albuterol Inhaler [Ventolin Hfa] 2 puff INHALATION Q6H PRN PRN 05/30/17 Amlodipine [Norvasc] 10 mg PO DAILY 05/30/17 Cholecalciferol (Vitamin D3) [Vitamin D3] 1,000 unit PO DAILY 05/30/17 Docusate Sodium [Colace] 100 mg PO BID 05/30/17 Lidocaine/Prilocaine [Lidocaine-Prilocaine Cream] 1 applic TOPICAL UD PRN 05/30/17 Naproxen [Naprosyn] 500 mg PO BID PRN PRN 05/30/17 Pantoprazole Sodium [Protonix] 20 mg PO DAILY PRN 05/30/17 Pyridoxine HCl [Vitamin B-6] 100 mg PO DAILY 06/21/17 Aspirin E.C. [Ecotrin] 81 mg PO DAILY@0800 07/30/18 Levothyroxine [Synthroid] 25 mcg PO DAILY 07/30/18 Lisinopril [Zestril] 10 mg PO 1800 07/30/18 Oxycodone HCl/Acetaminophen [Percocet 5/325] 1 tablet PO Q4H PRN PRN 07/30/18 Prochlorperazine Maleate [Compazine] 10 mg PO Q6H PRN PRN 07/30/18 Acetaminophen [Pain Relief] 650 mg PO Q4H PRN PRN 12/17/19 Dexamethasone [Decadron] 4 mg PO BIDCM PRN 12/17/19 DiphenhydrAMINE [Benadryl] 50 mg PO Q6H PRN PRN 12/17/19 Olanzapine 10 mg PO QHS 12/17/19
[2019-12-18 10:29] VITALS: BP 137/76; PULSE 69; RESP 16; TEMP 36.9; O2SAT 96
== END 2019-12-18 11:25 | disposition home or self-care (01) ==
PROVIDERS: Admitting Provider Internal Medicine Hematology & Oncology; PCP Family Medicine; Referring Provider Internal Medicine Hematology & Oncology; Visit Provider Internal Medicine Hematology & Oncology
DX: Z51.11 Encounter for antineoplastic chemotherapy (principal); C56.2 Malignant neoplasm of left ovary; C56.1 Malignant neoplasm of right ovary; F31.9 Bipolar disorder, unspecified; F17.200 Nicotine dependence, unspecified, uncomplicated; N17.9 Acute kidney failure, unspecified; E86.0 Dehydration; Z79.899 Other long term (current) drug therapy; Z79.82 Long term (current) use of aspirin
CPT/HCPCS: 36415; 80048; 81002; 85025; 94640; 96365; 96366; 96367; 96375; 96376; 96413; 96415; 96417; 97802; 99218; J7040; J7050; J9045; A4216; G0378; G0379; J2405; J3490; J9201

== ENCOUNTER 2020-01-14 09:48 | Observation (INO) | payer MEDICARE, MEDICAID, SELFPAY ==
[2019-12-17 08:21] VITALS: BMI 16.9
[2020-01-14] VITALS (9 sets, daily range): BP systolic 133–151; BP diastolic 79–97; PULSE 74–94; RESP 14–22; TEMP 36.7–37.2; O2SAT 96–99; BMI 16.3; BMI 16.2
[2020-01-14 09:01] LABS: Hematocrit 34.3 % (37-47); Hemoglobin 11.2 g/dL (12.0-15.0); Mean Corp Hgb Conc 32.7 g/dL (32-36); Mean Corpuscular Hgb 32.4 pg (27.0-32.0); Mean Corpuscular Volume 99.1 fL (81-99); Mean Platelet Vol. 11.2 fl (6.2-12.0); POSITIVE MORPHOLOGY YES; Platelet Count 653 K/mm3 (150-450); RBC Distribution Width CV 16.5 % (11.6-14.6); RBC Distribution Width SD 59.3 fl (35.1-43.9); Red Blood Count 3.46 M/mm3 (4.2-5.4); White Blood Count 16.4 K/mm3 (4.4-11.0)
[2020-01-14 09:03] LABS: Scan Indicated on CBC? Y/N YES- FLAGS NOTED
[2020-01-14 09:19] LABS: Anion Gap 8 (5-15); BUN 28 mg/dL (7-18); BUN/Creat Ratio 20.6 RATIO (10-20); Calcium,Total 8.5 mg/dL (8.5-10.1); Chloride 106 mmol/L (98-107); Creatinine, Serum 1.36 mg/dL (0.55-1.02); EST Glomerular Filtration Rate 42 mL/min (>60); Est Glom Filt Rate - Afr Amer 51 mL/min (>60); Glucose 100 mg/dL (74-106); Potassium 4.2 mmol/L (3.5-5.1); Sodium Level 136 mmol/L (136-145)
[2020-01-14] MEDS: 0.9% Saline Lock 10 ML Syringe IV ×4 (09:20→11:23)
[2020-01-14 09:27] LABS: Color, Urine Yellow (Yellow); Glucose, Dipstick Normal (Normal); Ketone-Dipstick Negative (Negative); Leukocyte Esterase-Dipstick 25 /ul (Negative); Nitrite-Dipstick Negative (Negative); Occult Blood-Urine Negative /ul (Negative); Protein-Dipstick 500 mg/dl (Negative); Specific Gravity, Urine 1.015 (1.002-1.030); Urine Bilirubin Dipstick Negative (Negative); Urine Clarity Clear (Clear); Urine Urobilinogen Normal (Normal)
[2020-01-14] MEDS: DiphenhydrAMINE 50 MG/ML Syringe IV (11:11)
[2020-01-14] MEDS: Famotidine 20mg IV Push Syringe Q24 300 MG IV (11:13)
[2020-01-14] MEDS: Ondansetron 4 MG/2 ML Vial 8 MG IV (11:13)
--- NOTE | 2020-01-14 12:30 | PCM.NTREPORT ---
Nutrition Therapy Report - History Nutrition Services has been consulted to:: Manage nutrient details of diet order Current diet / nutrition support order:: Regular diet--intake to be established. 120 ml ensure enlive 4 x daily with medpass - Anthropometric Measurements Height:: 5 ft 4 in Weight:: 43.1 kg Body Mass Index (BMI):: 16.2 - Relevant Labs Relevant Labs:: WBC 16.4 K/mm3 (4.4-11.0) H 01/14/20 08:40 RBC 3.46 M/mm3 (4.2-5.4) L 01/14/20 08:40 Hgb 11.2 g/dL (12.0-15.0) L 01/14/20 08:40 Hct 34.3 % (37-47) L 01/14/20 08:40 MCV 99.1 fL (81-99) H 01/14/20 08:40 MCH 32.4 pg (27.0-32.0) H 01/14/20 08:40 RDW Std Deviation 59.3 fl (35.1-43.9) H 01/14/20 08:40 RDW Coeff of Aracely 16.5 % (11.6-14.6) H 01/14/20 08:40 Plt Count 653 K/mm3 (150-450) H 01/14/20 08:40 Absolute Neuts (auto) 10.0 X10^3/uL (2.0-7.7) H 01/14/20 08:40 BUN 28 mg/dL (7-18) H 01/14/20 08:40 Creatinine 1.36 mg/dL (0.55-1.02) H 01/14/20 08:40 Est GFR (MDRD) Af Amer 51 mL/min (>60) L 01/14/20 08:40 Est GFR (MDRD) Non-Af 42 mL/min (>60) L 01/14/20 08:40 BUN/Creatinine Ratio 20.6 RATIO (10-20) H 01/14/20 08:40 - Assessment Food / Nutrition-Related History:: Pt reports appetite has been quite good but, has had some wt loss due to some stressors in her life. Reports dislike of ensure enlive but, likes carnation instant breakfast--will change accordingly; pt also agreeable to trying orange magic cup as well. Pt reports UBW~100-102 lbs and has had ~5 lb wt loss x past month; calculated ~5% wt loss x 1 month is significant for malnutrition especially given low BMI 16.3 and suspect decreased intake due to reported life stressors. Pt does have muscle and fat wasting in the upper body, clavicle and arms +NFPA. Pt denies difficulty chewing/swallowing and appetite seems improved at this time--pending first meal. - Nutrition Diagnosis Problem / Etiology / Signs & Symptoms (PES):: Pro/joi malnutrition in the context of chronic disease likely related to increased energy expenditure of malignancy as evidenced by ~5% wt loss x 1 month, low BMI 16.3 and +NFPA with muscle/fat wasting in the arms, upper body and clavicle regions. Evidence of Malnutrition Exists:: Yes Severe PCM:: Chronic Illness - Nutrition Intervention Nutrition Prescription:: Estimated Nutrition Needs~6580-1112 kcal and ~60-70 gm protein per day for repletion. - Food / Nutrient Delivery Interventions Summary of nutrition intervention:: D/C ensure enlive per pt request and provide 240 ml carnation instant breakfast with whole millk BID and orange magic cup 1 x per day. Nutrition support ordered as / adjusted to:: no nutrition support ordered at this time Nutrition education provided?: Yes - MNT Monitoring Further MNT monitoring and evaluation required?: Yes MNT Follow-up in:: 3-5 days
--- NOTE | 2020-01-14 14:24 | CHAPLAIN ---
Type of Pastoral Visit _x__ Initial Visit ___ Follow-up Visit ___ On-call Visit ___ General Patient Visit ___ Spiritual Assessment ___ Family Conference ___ Bereavement ___ Rapid Response ___ Code Blue ___ Other (describe below) Pastoral Care Referral From _x__ Patient ___ Family ___ Nurse ___ Physician ___ [place] Reporter ___ Technical Specialist Cytogenetics ___ Other (describe below) Sacrament/Intervention _x__ Active listening ___ Anointing ___ Shinto ___ Bereavement ___ Communion _x__ Katelyn exploration ___ ___ Life review _x__ Prayer ___ Reconciliation ___ Sacrament of Sick _x__ Supportive presence ___ Wedding ___ Other (describe below) Pastoral Comments
[2020-01-14] MEDS: oxyCODONE 5 MG Tablet PO (21:36)
[2020-01-15 03:00] VITALS: PULSE 65
[2020-01-15 04:30] VITALS: BP 148/87; PULSE 65; RESP 18; TEMP 36.7; O2SAT 96
[2020-01-15] MEDS: Levothyroxine 25 MCG TABLET PO (06:43)
--- NOTE | 2020-01-15 06:53 | HP.PCM_ITS ---
Problem List (1) Ovarian epithelial cancer Status: Chronic Qualifiers: Comment: Bilateral ovarian cancer (BRCA1 & BRCA2 negative) (2) Chemotherapy adverse reaction Status: Resolved Qualifiers: Encounter type: sequela Comment: Carboplatin History of Present Illness Date of Admission: 01/14/20 Chief Complaint: Chemotherapy administration: Carboplatin desensitization protocol. The patient is a 59 year old F with recurrent ovarian cancer and history of partial small bowel obstruction. She is here for her second cycle of palliative chemotherapy with carboplatin desensitization and gemcitabine. Previous oncology history outlined from previous admission. Past Medical History Past Medical History (Chronic Problems): Chronic Problems Ovarian epithelial cancer (Chronic) Bilateral ovarian cancer (BRCA1 & BRCA2 negative) Bipolar disorder (manic depression) (Chronic) Tobacco use disorder (Chronic) Intra-abdominal & Pelvic Swelling, Mass, & Lump (Chronic) History of acute cystitis (Chronic) History of abdominal pain (Chronic) Allergies erythromycin base [Erythromycin Base] Allergy (Verified 01/14/20 09:05) Hives Home Medications: Ambulatory Orders Medication Instructions Recorded RX: Lamotrigine [Lamictal] 100 mg PO DAILY 05/23/17 RX: Ondansetron [Zofran] 8 mg PO Q8H PRN PRN 05/23/17 RX: Albuterol Inhaler [Ventolin 2 puff INHALATION Q6H PRN PRN 05/30/17 Hfa] RX: Amlodipine [Norvasc] 5 mg PO DAILY 05/30/17 RX: Cholecalciferol (Vitamin D3) 1,000 unit PO DAILY 05/30/17 [Vitamin D3] RX: Docusate Sodium [Colace] 100 mg PO BID 05/30/17 RX: Lidocaine/Prilocaine 1 applic TOPICAL UD PRN 05/30/17 [Lidocaine-Prilocaine Cream] RX: Naproxen [Naprosyn] 500 mg PO BID PRN PRN 05/30/17 RX: Pantoprazole Sodium [Protonix] 20 mg PO DAILY PRN 05/30/17 Levothyroxine [Synthroid] 25 mcg PO DAILY 07/30/18 Oxycodone HCl/Acetaminophen 1 tablet PO Q4H PRN PRN 07/30/18 [Percocet 5/325] Prochlorperazine Maleate 10 mg PO Q6H PRN PRN 07/30/18 [Compazine] RX: Aspirin E.C. 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 cancer Smoking Status: Current every day smoker Review of Systems Constitutional: Reports: Weight Change VTE Information - Inpt Only VTE Present on Admission: No VTE Mechan Device Prophylaxis: SCD's VTE Pharm Prophylaxis ordered?: Yes - Physical Exam Vitals/I&O's: Vital Signs Temp Pulse Resp BP Pulse Ox 98.1 F 65 18 148/87 H 96 01/15/20 04:30 01/15/20 04:30 01/15/20 04:30 01/15/20 04:30 01/15/20 04:30 Oxygen Delivery Method Room Air Weight: 95 lb 0.308 oz Body Mass Index (BMI) 16.2 Intake and Output for Last 24 Hours 01/13/20 01/14/20 01/15/20 23:59 23:59 23:59 Intake Total 1415.50 / 1415.50 Balance 1415.50 / 1415.50 General: Alert, Oriented x3, No apparent distress HEENT: Atraumatic, PERRLA, EOMI, Normocephalic Oral: Moist Mucosa Neck: Supple, No JVD, No Nodes Lungs: Clear to auscultation, Normal air movement, No rhonchi, No wheeze, No rales Cardiovascular: Regular rate, Regular Rhythm, Normal S1, Normal S2, No murmurs Abdomen: Bowel Sounds Present, Soft, Non Tender, No Hepato-splenomegaly Extremities: No clubbing, No cyanosis, No edema Skin: No rashes, No breakdown Musculoskeletal: No Tenderness to Palpation of Joints or Extremities, No Muscle Wasting Lymphatic: No Cervical, Supraclavicular, or Inguinal Adenopathy Neurological: Neuro grossly intact Psych/Mental Status: Normal Affect Laboratory Results 01/14/20 08:40: Sodium 136, Potassium 4.2, Chloride 106, Carbon Dioxide 22.0, Anion Gap 8, BUN 28 H, Creatinine 1.36 H, Estim Creat Clear Calc 30.30, Est GFR (MDRD) Af Amer 51 L, Est GFR (MDRD) Non-Af 42 L, BUN/Creatinine Ratio 20.6 H, Glucose 100, Calcium 8.5 01/14/20 08:40: WBC 16.4 H, RBC 3.46 L, Hgb 11.2 L, Hct 34.3 L, MCV 99.1 H, MCH 32.4 H, MCHC 32.7, RDW Std Deviation 59.3 H, RDW Coeff of Aracely 16.5 H, Plt Count 653 H, MPV 11.2, Absolute Neuts (auto) 10.0 H 01/14/20 08:40: Urine Color Yellow, Urine Clarity Clear, Urine pH 6.0, Ur Specific [place] 1.015, Urine Protein 500 H, Urine Glucose (UA) Normal, Urine Ketones Negative, Urine Occult Blood Negative, Urine Nitrite Negative, Urine Bilirubin Negative, Urine Urobilinogen Normal, Ur Leukocyte Esterase 25 H Current Medications Albuterol Sulfate (Albuterol 2.5 Mg/3 Ml Vial.Neb.) 2.5 mg INHALATION Q6H PRN PRN Reason: SHORTNESS OF BREATH Alprazolam (Alprazolam 0.25 Mg Tablet) 0.25 mg PO BID PRN PRN Reason: ANXIETY Amlodipine Besylate (Amlodipine 10 Mg Tablet) 10 mg PO DAILY [facility] Last Admin: 01/14/20 11:30 Dose: Not Given Documented by: Aspirin (Aspirin E.C. 81 Mg Tablet) 81 mg PO DAILY@0800 [facility] Diphenhydramine HCl (Diphenhydramine 50 Mg/Ml Syringe) 50 mg IV X1 PRN PRN Reason: .HYPERSENSITIVITY/ANAPHYLAXIS Epinephrine HCl (Epinephrine (For Allergic Rxn) 0.3 Mg/0.3 Ml Syringe) 0.3 mg IM X1 PRN PRN Reason: .HYPERSENSITIVITY/ANAPHYLAXIS Heparin Sodium (Beef Lung) (Heparin Pf Lock 10 Units/Ml 50 Units/5 Ml Syringe) 50 units IV UD PRN PRN Reason: Port-a-Cath (VAD)Heparin Flush Hydrocortisone Sodium Succinate (Hydrocortisone Sod Succinate 100 Mg/2 Ml Vial) 100 mg IV X1 PRN PRN Reason: .HYPERSENSITIVITY/ANAPHYLAXIS Sodium Chloride () 1,000 mls @ 999 mls/hr IV .Q1H1M PRN PRN Reason: HYPOTENSION Carboplatin 105 mg/ Dextrose 1,010.5 mls @ 1.33 mls/hr IV X1 ONE; Protocol Stop: 02/15/20 03:46 Last Infusion: 01/14/20 23:47 Dose: Infused Documented by: Carboplatin 105 mg/ Dextrose 1,010.5 mls @ 148 mls/hr IV X1 ONE Stop: 01/15/20 07:49 Last Admin: 01/14/20 23:38 Dose: 148 mls/hr Documented by: Lamotrigine (Lamotrigine 100 Mg Tablet) 100 mg PO DAILY [facility] Last Admin: 01/14/20 11:30 Dose: Not Given Documented by: Levothyroxine Sodium (Levothyroxine 25 Mcg Tablet) 25 mcg PO DAILY@0600 [facility] Last Admin: 01/15/20 06:43 Dose: 25 mcg Documented by: Lorazepam (Lorazepam 2 Mg/Ml Syringe) 0.5 mg IV Q4H PRN PRN Reason: .NAUSEA/VOMITING Nicotine (Nicotine 21 Mg Patch) 21 mg TRANSDERM. DAILY [facility] Last Admin: 01/14/20 21:30 Dose: 21 mg Documented by: Ondansetron HCl (Ondansetron 8 Mg Tablet) 8 mg PO Q8H PRN PRN Reason: NAUSEA/VOMITING Ondansetron HCl (Ondansetron 4 Mg/2 Ml Vial) 8 mg IV X1 [facility] Last Admin: 01/14/20 11:13 Dose: 8 mg Documented by: Ondansetron HCl (Ondansetron 4 Mg/2 Ml Vial) 8 mg IV Q8H PRN PRN Reason: NAUSEA/VOMITING Oxycodone HCl (Oxycodone 5 Mg Tablet) 5 mg PO Q6H PRN PRN PRN Reason: PAIN 1-10 Last Admin: 01/14/20 21:36 Dose: 5 mg Documented by: Prochlorperazine Edisylate (Prochlorperazine 10 Mg/2 Ml Vial) 10 mg IV Q6H PRN PRN Reason: NAUSEA/VOMITING Sertraline HCl (Sertraline 50 Mg Tablet) 50 mg PO DAILY [facility] Last Admin: 01/14/20 11:30 Dose: Not Given Documented by: Sodium Chloride (0.9% Saline Lock 10 Ml Syringe) 10 - 40 ml IV UD PRN PRN Reason: Port-a-Cath (VAD) Flush Last Admin: 01/14/20 11:23 Dose: 10 ml Documented by: Sodium Chloride (0.9 % Nacl (Sterile) Posiflush 10 Ml) 10 - 40 ml IV UD PRN PRN Reason: Port access or dressing change Assessment/Plan All Active Problems Chemotherapy adverse reaction (Resolved) 1) 59-year-old lady with recurrent ovarian cancer and carcinomatosis Plan: -Proceed with chemotherapy today. -Dexamethasone and Benadryl after discharge home. 2) history of carboplatin infusion reaction Plan: -Carboplatin desensitization protocol -Monitor carefully 3) history of partial small bowel obstruction & weight loss -No evidence of small bowel obstruction Plan: -Dietary consult & supplements -Low residual diet 4) history of tobacco addiction Plan: -NicoDerm 21mg patch topical daily while here in the hospital. cc: Dr. Edison Roa iii, Dr. Jaciel Morfin
--- NOTE | 2020-01-15 07:09 | DCINST_ITS ---
- Discharge Diagnoses Current Active Problems: Current Active and Chronic Problems Ovarian epithelial cancer (Chronic) Bilateral ovarian cancer (BRCA1 & BRCA2 negative) Reason(s) for Visit for Discharge Instructions: Chemotherapy treatment You will use the following diet at home:: Other - Low residual diet with dietary supplements Your food should be the consistency of: Mechanical soft (ground), Soft (bite- sized & easy to chew/swallow) Discharge Activity: Return to Normal Activity May resume sexual activity in: 10-14 days Call your doctor if you observe: Fever of 101 or Higher, Inability to have a bowel movement, Uncontrolled pain Allergies/Adverse Reactions: Allergies erythromycin base [Erythromycin Base] Allergy (Verified 01/14/20 09:05) Hives Medications to take at Discharge Lamotrigine [Lamictal] 100 mg PO DAILY 05/23/17 Ondansetron [Zofran] 8 mg PO Q8H PRN PRN 05/23/17 Albuterol Inhaler [Ventolin Hfa] 2 puff INHALATION Q6H PRN PRN 05/30/17 Amlodipine [Norvasc] 5 mg PO DAILY 05/30/17 Cholecalciferol (Vitamin D3) [Vitamin D3] 1,000 unit PO DAILY 05/30/17 Docusate Sodium [Colace] 100 mg PO BID 05/30/17 Lidocaine/Prilocaine [Lidocaine-Prilocaine Cream] 1 applic TOPICAL UD PRN 05/30/17 Naproxen [Naprosyn] 500 mg PO BID PRN PRN 05/30/17 Pantoprazole Sodium [Protonix] 20 mg PO DAILY PRN 05/30/17 Aspirin E.C. [Ecotrin] 81 mg PO DAILY@0800 07/30/18 Levothyroxine [Synthroid] 25 mcg PO DAILY 07/30/18 Oxycodone HCl/Acetaminophen [Percocet 5/325] 1 tablet PO Q4H PRN PRN 07/30/18 Prochlorperazine Maleate [Compazine] 10 mg PO Q6H PRN PRN 07/30/18 Acetaminophen [Pain Relief] 650 mg PO Q4H PRN PRN 12/17/19 Dexamethasone [Decadron] 4 mg PO BIDCM PRN 12/17/19 DiphenhydrAMINE [Benadryl] 50 mg PO Q6H PRN PRN 12/17/19 Olanzapine 10 mg PO QHS 12/17/19 Primary Care Physician: Edison Roa III, MD [Primary Care Provider] - Test Results: Test results from this visit will be discussed in further detail at your follow- up appointment, if applicable. Please Follow Up With: Jaciel Morfin MD When: In 3 weeks
[2020-01-15 07:15] VITALS: PULSE 87
[2020-01-15 07:43] VITALS: BP 158/82; PULSE 66; RESP 14; TEMP 36.9; O2SAT 98
[2020-01-15] MEDS: Ondansetron 4 MG/2 ML Vial 8 MG IV (09:10)
[2020-01-15] MEDS: 0.9% Saline Lock 10 ML Syringe IV ×2 (09:10→10:38)
[2020-01-15 10:30] VITALS: BP 157/90; PULSE 81; RESP 14; TEMP 37.1; O2SAT 96
== END 2020-01-15 07:12 | disposition home or self-care (01) ==
PROVIDERS: Admitting Provider Internal Medicine Hematology & Oncology; PCP Family Medicine; Referring Provider Internal Medicine Hematology & Oncology; Visit Provider Internal Medicine Hematology & Oncology
DX: Z51.11 Encounter for antineoplastic chemotherapy (principal); C56.2 Malignant neoplasm of left ovary; C56.1 Malignant neoplasm of right ovary; F31.9 Bipolar disorder, unspecified; F17.200 Nicotine dependence, unspecified, uncomplicated; Z79.899 Other long term (current) drug therapy; Z79.82 Long term (current) use of aspirin; R63.4 Abnormal weight loss; Z68.1 Body mass index [BMI] 19.9 or less, adult; C80.0 Disseminated malignant neoplasm, unspecified; Z87.19 Personal history of other diseases of the digestive system; R19.00 Intra-abdominal and pelvic swelling, mass and lump, unspecified site
CPT/HCPCS: 80048; 81002; 85027; 96367; 96375; 96376; 96413; 96415; 96417; 97802; J7050; J9045; A4216; J2405; J3490; J9201

== ENCOUNTER 2020-01-30 07:59 | Inpatient (IN) | payer MEDICARE, MEDICAID, SELFPAY ==
[2020-01-14 12:37] VITALS: BMI 16.2
[2020-01-30] VITALS (29 sets, daily range): BP systolic 97–154; BP diastolic 60–90; PULSE 80–120; RESP 12–24; TEMP 35.9–36.8; O2SAT 94–100; BMI 17.2; BMI 16.0
--- NOTE | 2020-01-30 08:46 | ED.VISSUMM ---
- ER Visit Summary Date of Service: 01/30/20 Chief Complaint: Nosebleed History of Present Illness: The patient is a 59 F 3 stage IV ovarian cancer on chemotherapy and has been for around 8 years. Prior bowel obstruction. Prior hysterectomy. Left sided MediPort. They states she was doing well started a nosebleed earlier this morning. She said at one time it was severe currently it stopped. She is on no blood thinners besides aspirin. States her normal blood pressure is around 120. Physical Examination: Middle-aged female vital signs initial blood pressure 97/76 heart rate 99. Pulse ox 94%. Afebrile. She does not look septic or toxic. H EENT exam dried blood in the left naris. Neither naris is bleeding. Minimal dried blood in the right. Posterior pharynx unremarkable no blood. Neck nontender. Lungs clear to auscultation. Heart regular rhythm no murmur. Left chest wall Mediport. Very thin. Abdomen soft nontender normal bowel sounds no peritoneal signs. Nondistended. Moving all 4 extremities. No edema. Neurologically she is awake and alert with no focal motor deficits. Test Results: BC shows a white count of 7. Hemoglobin is 7.4 previously was 11.2 about 2 weeks ago. Chemistries unremarkable creatinine 1.38 which is her baseline. PT/INR pending. Patient has been typed and screened due to her hemoglobin is 7.4 should be typed and crossed and transfused 2 units. That will be ordered but not completed in the emergency department. Emergency Department Course and Treatment: Middle-aged female with stage IV ovarian cancer with nosebleed and mild hypotension. IV fluids. Labs. Type and screen. I did place a anterior nasal pack in the left nares. It is a coag IT nasal pack. Treatment Plan: Repeat exam patient is doing well at 9:35 AM. I spoke to her oncologist Dr. Groves he agrees she needs transfusion. I will speak to the hospitalist about a observation admission for transfusion. Discussed the patient with the hospitalist. Dr. Jessica Gilman. Patient be placed on PCU. Should be transfused. She will a rectal exam on admission. I will also discuss with her if she is discharged with her nasal pack she will need to go home on 3 days antibiotic and have the pack pulled in 2 to 3 days. Disposition: Observation admission. Impression: Acute bilateral nosebleed Acute hypotension Left-sided anterior nasal pack by ER Acute anemia requiring transfusion. Anemia suspected secondary to chemotherapy History of ovarian CA stage IV on chemotherapy This note was generated with [employer] dictation software. It may contain incorrect words, spelling, and punctuation that were not noted in review of the chart prior to signing ED Disposition - Plan for ED Patient: Referrals: Edison Roa III, MD [Primary Care Provider] -
[2020-01-30] MEDS: 0.9% Normal Saline 1,000 ML 1000 ML IV (08:53)
[2020-01-30 09:20] LABS: Absolute Lymphocyte Count 2.86 X10^3/uL (0.83-4.51); Absolute Neutrophil Count 4.1 X10^3/uL (2.0-7.7); Basophil# 0.04 X10^3/uL; Basophil% 0.5 % (0-1); Differential Indicated SCAN CRITERIA MET; Eosinophil# 0.03 X10^3/uL; Eosinophils% 0.4 % (0-5); Hematocrit 23.4 % (37-47); Hemoglobin 7.4 g/dL (12.0-15.0); Lymphocyte # 2.86 X10^3/ul (4.0); Lymphocyte % 36.2 % (19-41); Mean Corp Hgb Conc 31.6 g/dL (32-36); Mean Corpuscular Hgb 33.6 pg (27.0-32.0); Mean Corpuscular Volume 106.4 fL (81-99); Mean Platelet Vol. 13.5 fl (6.2-12.0); Monocyte% 10.1 % (0-10); NRBC Flagged by Analyzer 0.5 % (0-5); Neutrophil # 4.09 X10^3/uL (2.7-7.7); Neutrophil % 51.7 % (47-70); POSITIVE MORPHOLOGY YES; Platelet Count 142 K/mm3 (150-450); RBC Distribution Width CV 20.2 % (11.6-14.6); RBC Distribution Width SD 76.1 fl (35.1-43.9); White Blood Count 7.9 K/mm3 (4.4-11.0)
[2020-01-30 09:27] LABS: Anion Gap 4 (5-15); BUN 31 mg/dL (7-18); BUN/Creat Ratio 22.5 RATIO (10-20); Calcium,Total 8.1 mg/dL (8.5-10.1); Chloride 116 mmol/L (98-107); Creatinine, Serum 1.38 mg/dL (0.55-1.02); EST Glomerular Filtration Rate 42 mL/min (>60); Est Glom Filt Rate - Afr Amer 50 mL/min (>60); Estimated Creatinine Clearance 31.53 ml/min; Glucose 142 mg/dL (74-106); Potassium 4.3 mmol/L (3.5-5.1); Sodium Level 144 mmol/L (136-145)
--- NOTE | 2020-01-30 09:35 | RAD_ITS ---
STUDY: X-RAY CHEST REASON FOR EXAM: Female, 59 years old. nosebleed, Hx emphysema, HTN TECHNIQUE: Single AP portable view of the chest. COMPARISON: 07/30/2018. FINDINGS: Left-sided MediPort catheter in position. Stable small right lung base nodules/granulomas. Cardiac silhouette unremarkable. Pulmonary vascularity unremarkable. Aorta unremarkable. No focal patchy airspace opacities. No pleural effusions. COPD/emphysema. Upper abdomen unremarkable. Osseous structures intact with mild degenerative features. No pneumothorax. RAD/Chest 1 View (Portable) IMPRESSION: No focal patchy airspace opacities or pleural effusions. Stable right lung base small nodule/granuloma Left-sided Mediport catheter COPD/emphysema Electronically Signed: Geovanni Faustin DO at 9:49 EST Tel , Service support ,
--- NOTE | 2020-01-30 09:47 | HP.PCM_ITS ---
Problem List (1) Epistaxis Status: Acute (2) Acute blood loss anemia Status: Acute (3) Severe protein-calorie malnutrition Status: Chronic (4) Ovarian epithelial cancer Status: Chronic Qualifiers: Laterality: unspecified laterality Comment: Bilateral ovarian cancer (BRCA1 & BRCA2 negative) (5) Bipolar disorder (manic depression) Status: Chronic Qualifiers: Active/Remission status: in remission of unspecified degree (6) Tobacco use disorder Status: Chronic History of Present Illness Date of Admission: 01/30/20 Chief Complaint: Nosebleed The patient is a 59 y/o F w/ PMHx: Chronic COPD, Anxiety and Depression, Hypothyroidism, HTN, GERD who presents to the [facility] ED on 01/30/20 with history of significant onset of epistaxis from the left nare with large red clots, coughing up the blood and significant nausea related with no recent episodes of black or bloody stools and no hematemesis prompting ED presentation secondary to fatigue, dyspnea, lightheadedness and dizziness. In the emergency room ED physician placed a coag IT pack which had at that time stopped bleeding prior to transition to PCU. Work-up in the ED included T 97, heart rate 99, BP 97/76, respiratory rate 18, 94% on room air, CBC with WBC 7.9, hemoglobin 7.4 with most recent hemoglobin noted on 01/14/2020 11.2 and prior to this on 12/17/2019 2015.1 but previously hemoglobin level appears 13-14, MCV 106.4, platelet 142 with no specific shift, pending PT and INR upon presentation, unit PRBC pending per ED, CXR with no focal patchy airspace opacities or pleural effusions, stable right lung base small nodule/granuloma, L sided mediport catheter, COPD/emphysema changes. In the ED patient administered NS and as noted pending 2U PRBC for administration per ED physician. Following patient transition to the PCU recurrent significant bleeding onset, copious amounts of blood being coughed up with then episodes of hematemesis, case discussed with on-call ENT, Dr. Lopez who immediately took the patient to the OR for intervention. Past Medical History Past Medical History (Chronic Problems): Chronic Problems Ovarian epithelial cancer (Chronic) Bilateral ovarian cancer (BRCA1 & BRCA2 negative) Bipolar disorder (manic depression) (Chronic) Severe protein-calorie malnutrition (Chronic) Tobacco use disorder (Chronic) Intra-abdominal & Pelvic Swelling, Mass, & Lump (Chronic) History of acute cystitis (Chronic) History of abdominal pain (Chronic) Allergies erythromycin base [Erythromycin Base] Allergy (Verified 01/30/20 08:30) Hives Home Medications: Ambulatory Orders Medication Instructions Recorded Lamotrigine [Lamictal] 100 mg PO DAILY 05/23/17 Ondansetron [Zofran] 8 mg PO Q8H PRN PRN 05/23/17 Albuterol Inhaler [Ventolin Hfa] 2 puff INHALATION Q6H PRN PRN 05/30/17 Amlodipine [Norvasc] 5 mg PO DAILY 05/30/17 Cholecalciferol (Vitamin D3) 1,000 unit PO DAILY 05/30/17 [Vitamin D3] Docusate Sodium [Colace] 100 mg PO BID 05/30/17 Lidocaine/Prilocaine 1 applic TOPICAL UD PRN 05/30/17 [Lidocaine-Prilocaine Cream] Naproxen [Naprosyn] 500 mg PO BID PRN PRN 05/30/17 Pantoprazole Sodium [Protonix] 20 mg PO DAILY PRN 05/30/17 Aspirin E.C. [Ecotrin] 81 mg PO DAILY@0800 07/30/18 Levothyroxine [Synthroid] 25 mcg PO DAILY 07/30/18 Oxycodone HCl/Acetaminophen 1 tablet PO DAILY PRN 07/30/18 [Percocet 5/325] Prochlorperazine Maleate 10 mg PO Q6H PRN PRN 07/30/18 [Compazine] Acetaminophen [Pain Relief] 650 mg PO Q4H PRN PRN 12/17/19 Dexamethasone [Decadron] 4 mg PO BIDCM PRN 12/17/19 DiphenhydrAMINE [Benadryl] 50 mg PO Q6H PRN PRN 12/17/19 Olanzapine 10 mg PO QHS 12/17/19 Surgical History: - - Multiple surgeries for ovarian cancer, s/p LOGAN/BSO, port. Psychiatric History: Bipolar [employer] History: ovarian cancer Lives: Alone Smoking Status: Current every day smoker - Patient with ongoing cigarette tobacco usage currently approximately 2 cigarettes daily but had been up to 1/2 pack/day since she been a teenager. Tobacco Use: Cigarettes Alcohol: None Drugs: None - *Family History Maternal History Items: Hypertension Paternal History Items: Heart Disease Review of Systems Constitutional: Reports: Anorexia, Malaise, Weakness, Fatigue. Denies: Chills, Fever, Weight Change HEENT: Reports: Nasal bleeding. Denies: Head Aches, Sinus Congestion, Sinus Drainage Cardiovascular: Denies: Chest Pain, Palpitations Respiratory: Reports: Shortness of Breath, Shortness of breath at rest, Shortness of breath upon exertion. Denies: Cough, Sputum production Gastrointestinal: Reports: Nausea, Vomiting, - - With ongoing epistaxis, bouts of emesis with significant blood noted.. Denies: Abdominal Pain Genitourinary: Denies: Dysuria Musculoskeletal: Reports: Joint Pain. Denies: Joint Tenderness Skin: Denies: Rash, Wounds Neurological: Denies: Numbness, Tingling, Focal weakness Psychiatric: Reports: Anxiety, Depression. Denies: Homicidal Ideations, Suicidal Ideations Hematologic/ Lymphatic: Reports: Anemia, Easy Bruising, Easy Bleeding VTE Information - Inpt Only VTE Present on Admission: No VTE Mechan Device Prophylaxis: SCD's VTE Pharm Prophylaxis ordered?: No Reason prophylaxis not ordered:: Medical Contraindication Patient Problems: Active and Suspected Problems Epistaxis (Acute) Hemorrhage (Acute) Subjective: Patient seated upright in the PCU bed, extremely pale appearing, recent episode of coughing with significantly noted bright red clots. Objective: Physical Examination: General: awake, alert, oriented x 3 and cooperative, seated upright in the PCU bed, fatigued and pale appearing. Skin: Pale color, normal turgor, no icterus, no cyanosis. HEENT: AT/NC, EOMI, PERRLA, dry MM, left nare with ED pack still in place, no carotid bruits or JVD noted, noted posterior pharynx with evidence of ongoing epistaxis. Lungs: Diminished breath sounds, greater bases, normal effort despite anemia, no rales, ronchi or wheezing. Heart: Mildly tachycardic with regular rhythm; no gallop, rub audible. Abdomen: soft, thin cachectic habitus, NTTP, ND, normal BS, no HSM. Extremities: no cyanosis, clubbing, or edema. Neurological: patient awake, alert, oriented x 3; cognitive function intact; pupils equally reactive to light and accomodation; cranial nerves II-XII grossly normal, moving all 4 extremities, no focal deficits, strength severely global decrease secondary to acute presentation. Psychiatric: affect appears fatigued, pale, no acute evidence of depressive or anxiety feelings. - Physical Exam Vitals/I&O's: Vital Signs Temp Pulse Resp BP Pulse Ox 97 F L 99 18 97/76 94 01/30/20 08:24 01/30/20 08:24 01/30/20 08:24 01/30/20 08:24 01/30/20 08:24 Oxygen Delivery Method Room Air Weight: 100 lb 4.965 oz Body Mass Index (BMI) 17.2 Laboratory Results 01/30/20 09:00: WBC 7.9, RBC 2.20 L, Hgb 7.4 L, Hct 23.4 L, MCV 106.4 H, MCH 33.6 H, MCHC 31.6 L, RDW Std Deviation 76.1 H, RDW Coeff of Aracely 20.2 H, Plt Count 142 L, MPV 13.5 H, Immature Gran % (Auto) 1.100 H, Neut % (Auto) 51.7, Lymph % (Auto) 36.2, [place] % (Auto) 10.1 H, Eos % (Auto) 0.4, Baso % (Auto) 0.5, Absolute Neuts (auto) 4.1, Absolute Lymphs (auto) 2.86, Nucleated RBC % 0.5 01/30/20 09:00: PT Pending, INR Pending 01/30/20 09:00: Sodium 144, Potassium 4.3, Chloride 116 H, Carbon Dioxide 24.0, Anion Gap 4 L, BUN 31 H, Creatinine 1.38 H, Estim Creat Clear Calc 31.53, Est GFR (MDRD) Af Amer 50 L, Est GFR (MDRD) Non-Af 42 L, BUN/Creatinine Ratio 22.5 H , Glucose 142 H, Calcium 8.1 L 01/30/20 09:00: Blood Type Pending, Antibody Screen Pending Assessment/Plan All Active Problems Chemotherapy adverse reaction (Resolved) Epistaxis (Acute) Hemorrhage (Acute) Acute blood loss anemia (Acute) The patient is a 59 y/o F w/ PMHx: Chronic COPD, Anxiety and Depression, Hypothyroidism, HTN, GERD who presents to the [facility] ED on 01/30/20 with history of significant onset of epistaxis from the left nare with large red clots, coughing up the blood and significant nausea related with no recent episodes of black or bloody stools and no hematemesis prompting ED presentation secondary to fatigue, dyspnea, lightheadedness and dizziness. 1. Acute on chronic blood loss anemia secondary to ongoing epistaxis and chemotherapy: Hemoglobin 7.4, most recent hemoglobin previous to this noted on 01/14/2020 11.2 but prior to this on 12/17/2019 hemoglobin had been 5.1 with range most commonly 13, ED placed a coag IT pack. Patient was admitted to the PCU, continue the coag IT pack however patient had recurrent episodes of cou ghing up blood significantly large clots with resulting significant nausea and bouts of emesis with significant blood noted, continue to administer blood ordered in the ED with following even the first unit repeat hemoglobin 7.5, discussed case emergently with Dr. Lopez, ENT who took the patient to the operating room to achieve endoscopic control of the left nasal hemorrhage, 2 additional unit PRBC ordered and will administer with repeat hemoglobin following and trending, vital signs currently stable despite copious amount of blood loss, contain on fall precautions as suspect high risk, repeat CBC in AM. 2. Ovarian Epithelial Cancer: Patient with ongoing chemotherapy, following with Dr. Groves, magnesium phosphorus levels obtained to be normal, will encourage continued follow-up outpatient with oncology, defer inpatient consultation unless necessary. 3. Chronic Kidney Disease Stage III: Admission BUN/Cr 31/1.38, baseline renal function 1.1-1.3 however appears to have been trending upwards since 07/30/2018 noted to be 0.97 at that time and previously 0.7, repeat BMP in AM. 4. Hyperglycemia: Admission glucose 142, will obtain hemoglobin A1c to be cautious, likely stress response. 5. Chronic COPD: Will maintain on oxygen with wean as tolerated to room air, continue ATC duonebs, PRN albuterol, HOB, IS parameters. 6. Hypothyroidism: Continue home synthroid regimen. 7. Hypertension: We will hold patient regimen given low blood pressure in the ED secondary to acute blood loss anemia as noted #1, add regimen once appropriate, as needed IV hydralazine if needed. 8. Tobacco Abuse: Encouraged cessation, inpatient consultation per RT, NR if desired. 9. Anxiety and depression: We will continue patient home Lamictal, olanzapine regimen. 10. GERD: We will continue patient home PPI. 11. Severe protein calorie malnutrition: Evidenced by reduced BMI, body habitus with significant muscle and fat loss, nutrition consulted. 12. DVT prophylaxis: SCDs, defer any chemoprophylaxis given acute presentation as noted #1. 13. CODE status: Patient ANA CRISTINA is her son and living will is currently in place. Discussed CODE status at length including difference between FULL code, DNR-CCA and DNR-CC status. Following discussions about the differences in these status, requested Full Code status. Advanced Care Planning Face to Face Time: 16 minutes. Inpatient E&M: 36448 Init Hosp L3 Procedures: 36137 Advncd Care Plan 30 Min
[2020-01-30 09:52] LABS: Prothrombin Time (Protime)PT. 12.4 SECONDS (11.7-14.9)
[2020-01-30 09:57] LABS: Anisocytosis 1+
[2020-01-30] MEDS: 0.9% Normal Saline 1,000 ML 999 ML IV (11:52)
[2020-01-30 11:53] LABS: Magnesium 1.8 mg/dL (1.6-2.6); Phosphorus 4.8 mg/dL (2.5-4.9)
[2020-01-30 13:40] LABS: Hematocrit 23.6 % (37-47); Hemoglobin 7.5 g/dL (12.0-15.0)
[2020-01-30 14:16] LABS: Vitamin B12 252 pg/mL (211-911)
[2020-01-30] MEDS: Lactated Ringers 1,000 ML 100 ML IV (14:30)
--- NOTE | 2020-01-30 14:37 | PCM.CONS.GEN ---
Problem List (1) Epistaxis Status: Acute (2) Hemorrhage Status: Acute Reason for Consult Date of Consultation: 01/30/20 Reason for Consultation: uncontrolled epistaxis History of Present Illness: The patient is a 59 year old F [] Who presented to the emergency department after abrupt onset around 530 this morning of left epistaxis. This is been packed in the emergency department and she was subsequently mated to the floor however continued to suffer continues to decline in hemoglobin to 7.4. She reports vomiting of tamara blood after transfusion and continued bleeding. She denies any prior history of nasal bleeding or nasal trauma. She denies any anticoagulation therapy. She does a history of recurrent ovarian cancer which she reports is currently involving her aorta and diaphragm. She recently underwent bowel surgery at the [facility] for an obstruction and reports that this went well without any significant complications. She reports that she is otherwise been in her usual state of health. She reports discomfort from nasal packing in the left nostril but denies any abdominal pain chest pain extremity numbness coldness tachycardia. She does have chronic shortness of breath over the last 7 weeks or so but this is not been progressive. Past Medical History Past Medical History (Chronic Problems): Chronic Problems Ovarian epithelial cancer (Chronic) Bilateral ovarian cancer (BRCA1 & BRCA2 negative) Bipolar disorder (manic depression) (Chronic) Tobacco use disorder (Chronic) Intra-abdominal & Pelvic Swelling, Mass, & Lump (Chronic) History of acute cystitis (Chronic) History of abdominal pain (Chronic) Allergies erythromycin base [Erythromycin Base] Allergy (Verified 01/30/20 08:30) Hives Home Medications: Ambulatory Orders Medication Instructions Recorded Lamotrigine [Lamictal] 100 mg PO DAILY 05/23/17 Ondansetron [Zofran] 8 mg PO Q8H PRN PRN 05/23/17 Albuterol Inhaler [Ventolin Hfa] 2 puff INHALATION Q6H PRN PRN 05/30/17 Amlodipine [Norvasc] 5 mg PO DAILY 05/30/17 Cholecalciferol (Vitamin D3) 1,000 unit PO DAILY 05/30/17 [Vitamin D3] Docusate Sodium [Colace] 100 mg PO BID 05/30/17 Lidocaine/Prilocaine 1 applic TOPICAL UD PRN 05/30/17 [Lidocaine-Prilocaine Cream] Naproxen [Naprosyn] 500 mg PO BID PRN PRN 05/30/17 Pantoprazole Sodium [Protonix] 20 mg PO DAILY PRN 05/30/17 Aspirin E.C. [Ecotrin] 81 mg PO DAILY@0800 07/30/18 Levothyroxine [Synthroid] 25 mcg PO DAILY 07/30/18 Oxycodone HCl/Acetaminophen 1 tablet PO DAILY PRN 07/30/18 [Percocet 5/325] Prochlorperazine Maleate 10 mg PO Q6H PRN PRN 07/30/18 [Compazine] Acetaminophen [Pain Relief] 650 mg PO Q4H PRN PRN 12/17/19 Dexamethasone [Decadron] 4 mg PO BIDCM PRN 12/17/19 DiphenhydrAMINE [Benadryl] 50 mg PO Q6H PRN PRN 12/17/19 Olanzapine 10 mg PO QHS 12/17/19 Surgical History: - - Multiple surgery for ovarian cancer; 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, and 2013; Psychiatric History: Bipolar [employer] History: ovarian cancer Lives: Alone Smoking Status: Current every day smoker Tobacco Use: Cigarettes Alcohol: None Drugs: None Review of Systems Constitutional: Reports: Weakness. Denies: Chills, Fever, Night Sweats Eyes: Denies: Blurred vision, Conjunctivae Inflammation, Double vision HEENT: Reports: Nasal bleeding, Nasal Congestion, Post Nasal Drip. Denies: Difficulty Hearing, Difficulty Swallowing, Dysphasia Cardiovascular: Denies: Chest Pain, Chest Pressure, Chest Tightness, Edema Respiratory: Reports: Shortness of breath at rest Gastrointestinal: Reports: Nausea, Vomiting. Denies: Abdominal Pain, Constipation, Diarrhea, Hematemesis, Hematochezia Genitourinary: Denies: Dysuria, Frequency, Hematuria Musculoskeletal: Denies: Arm Pain, Back Pain, Foot Pain, Joint swelling Skin: Denies: Dryness, Jaundice Neurological: Denies: Balance problems, Blurred vision, Double vision, Change in Speech, Slurred speech, Confusion Psychiatric: Reports: Anxiety Endocrine: Denies: Heat/ Cold Intolerance, Polydipsia, Polyuria Hematologic/ Lymphatic: Reports: Hx of blood transfusion. Denies: Adenopathy, Easy Bruising, Easy Bleeding Subjective: Patient is well-appearing at the bedside with a nasal packing in the left nostril. She is conversant at normal conversational tones. She denies any sensation of posterior bleeding or expectoration of oral blood clots but does report vomiting bright red bleeding. She is witnessed to vomit 300 mL of dark fresh blood during the course of her evaluation. Objective: Patient denies any anterior bleeding reports discomfort from the left nasal packing. She admits to vomiting blood and this is witnessed during the course of her conversation. - Physical Exam Vitals/I&O's: Vital Signs Temp Pulse Resp BP Pulse Ox 97.3 F L 93 14 148/79 H 100 01/30/20 13:43 01/30/20 13:43 01/30/20 13:43 01/30/20 13:43 01/30/20 13:43 Oxygen Delivery Method Room Air Weight: 42.184 kg Body Mass Index (BMI) 16.0 Intake and Output for Last 24 Hours 01/28/20 01/29/20 01/30/20 23:59 23:59 23:59 Intake Total 2400 / 2400 Balance 2400 / 2400 General: Alert, Oriented x3, Cooperative, No apparent distress HEENT: Atraumatic, PERRLA, EOMI, - - Nasal packing in place in the left nostril Oral: Moist Mucosa Neck: Supple Lungs: Diminished Cardiovascular: Regular rate, Regular Rhythm Extremities: No clubbing, No cyanosis, No edema Skin: No rashes Musculoskeletal: Cachexia Neurological: Neuro grossly intact Psych/Mental Status: Normal Affect, Alert and oriented to time, place, person, mood and affect Microbiology Past 72 Hours 01/30/20 13:10 Stool Stool Occult Blood (WENDY) - Final Occult Blood Positive Laboratory Results 01/30/20 09:00: WBC 7.9, RBC 2.20 L, Hgb 7.4 L, Hct 23.4 L, MCV 106.4 H, MCH 33.6 H, MCHC 31.6 L, RDW Std Deviation 76.1 H, RDW Coeff of Aracely 20.2 H, Plt Count 142 L, MPV 13.5 H, Immature Gran % (Auto) 1.100 H, Neut % (Auto) 51.7, Lymph % (Auto) 36.2, [place] % (Auto) 10.1 H, Eos % (Auto) 0.4, Baso % (Auto) 0.5, Absolute Neuts (auto) 4.1, Absolute Lymphs (auto) 2.86, Nucleated RBC % 0.5, Anisocytosis 1+ 01/30/20 09:00: PT 12.4, INR 1.0 01/30/20 09:00: Sodium 144, Potassium 4.3, Chloride 116 H, Carbon Dioxide 24.0, Anion Gap 4 L, BUN 31 H, Creatinine 1.38 H, Estim Creat Clear Calc 31.53, Est GFR (MDRD) Af Amer 50 L, Est GFR (MDRD) Non-Af 42 L, BUN/Creatinine Ratio 22.5 H, Glucose 142 H, Calcium 8.1 L 01/30/20 09:00: Blood Type O POSITIVE, Antibody Screen NEGATIVE 01/30/20 09:00: Crossmatch See Detail 01/30/20 09:00: Phosphorus 4.8, Magnesium 1.8, Folate .01/30/20 13:20: Vitamin B12 252 01/30/20 13:20: Hgb 7.5 L, Hct 23.6 L Current Medications Acetaminophen (Acetaminophen 325 Mg Tablet) 650 mg PO Q6H PRN PRN PRN Reason: Pain Score 1-10/Temp > 100.7 F Al Hydroxide/Mg Hydroxide (Mag Hydrox/Al Hydrox/Simeth 30 Ml Udc) 30 ml PO Q6H PRN PRN PRN Reason: Gastric Burning Albuterol Sulfate (Albuterol 2.5 Mg/3 Ml Vial.Neb.) 2.5 mg INHALATION Q2H PRN PRN PRN Reason: Dyspnea, wheezing Albuterol/Ipratropium (Ipratropium/Albuterol Sulfate 3 Ml Ampul.Neb) 3 ml INHALATION Q6HWA.RT [place] Cholecalciferol (Cholecalciferol (Vit D3) 1,000 Unit (25mcg)) 1,000 unit PO DAILY [facility] Docusate Sodium (Docusate Sodium 100 Mg Capsule) 100 mg PO BID [facility] Guaifenesin (Guaifenesin 10 Ml Udc (200mg/10ml)) 20 ml PO Q4H PRN PRN PRN Reason: COUGH Hydralazine HCl (Hydralazine 20 Mg/Ml Vial) 10 mg IV Q4H PRN PRN PRN Reason: SBP > 160 Sodium Chloride () 1,000 mls @ 100 mls/hr IV .Q10H [place] Sodium Chloride () 500 mls @ 15 mls/hr IV PRN PRN PRN Reason: Blood Transfusion Sodium Chloride () 250 mls @ 15 mls/hr IV .[id number] PRN PRN Reason: Saline Flush Sodium Chloride () 250 mls @ 15 mls/hr IV .[id number] PRN PRN Reason: Additional IVPB Infusion Lactated Ringer's () 1,000 mls @ 100 mls/hr IV .Q10H [facility] Last Admin: 01/30/20 14:30 Dose: 100 mls/hr Documented by: Lamotrigine (Lamotrigine 100 Mg Tablet) 100 mg PO DAILY [facility] Levothyroxine Sodium (Levothyroxine 25 Mcg Tablet) 25 mcg PO DAILY@0600 [facility] Lidocaine/Prilocaine (Lidocaine/Prilocaine Hcl 5 Gm Tube) 1 gm TOPICAL UD PRN PRN Reason: PORT ACCESS Magnesium Hydroxide (Magnesium Hydroxide 30 Ml Udc) 30 ml PO DAILY PRN PRN PRN Reason: Constipation Melatonin (Melatonin 3 Mg Tablet) 3 mg PO QHS PRN PRN PRN Reason: INSOMNIA Morphine Sulfate (Morphine 2 Mg/Ml Syringe) 2 mg IV Q3H PRN PRN PRN Reason: Pain Score 6-10 Olanzapine (Olanzapine 10 Mg Tablet) 10 mg PO QHS [facility] Ondansetron HCl (Ondansetron 4 Mg/2 Ml Vial) 4 mg IV Q8H PRN PRN PRN Reason: NAUSEA/VOMITING Oxycodone HCl (Oxycodone 5 Mg Tablet) 5 mg PO Q4H PRN PRN PRN Reason: Pain Score 4-5 Pantoprazole Sodium (Pantoprazole Sodium 20 Mg Tablet) 20 mg PO DAILY PRN PRN Reason: gastritis Prochlorperazine Edisylate (Prochlorperazine 10 Mg/2 Ml Vial) 5 mg IV Q4H PRN PRN PRN Reason: Breakthrough Nausea/Vomiting Psyllium Hydrophilic Mucilloid (Psyllium 1 Packet) 1 packet PO DAILY PRN PRN PRN Reason: Constipation Sodium Chloride (0.9% Saline Lock 10 Ml Syringe) 10 - 40 ml IV UD PRN PRN Reason: SALINE FLUSH Throat Lozenges (Benzocaine/Menthol 1 Lozenge) 1 lozenge MUCOUS MEM Q2H PRN PRN PRN Reason: SORE THROAT Assessment/Plan All Active Problems Chemotherapy adverse reaction (Resolved) Epistaxis (Acute) Hemorrhage (Acute) The patient is a 59-year-old female with metastatic ovarian cancer and recent bowel obstruction. She is now suffering significant posterior nasal hemorrhage requiring several blood transfusion failing to recuperate her declining hemoglobin which is now at 7.4. She continues to vomit large quantities of blood. Given this operative evaluation for control of the significant nasal bleeding is advised and she is agreeable for this. Witnessed informed consent is obtained at the bedside. The patient is at increased risk given her other medical conditions however a recent successful surgery is reassuring in regard to any other unidentified significant health risks.
[2020-01-30] MEDS: Oxymetazoline 0.05% 1 SPRAY SPRAY.BTL 15 SPRAY (14:50)
--- NOTE | 2020-01-30 15:18 | PCM.OPRPT ---
Problem List (1) Epistaxis Status: Acute (2) Hemorrhage Status: Acute Report of Operation Date of Procedure: 01/30/20 Pre-Operative Diagnosis: Nasal hemorrhage Post-Operative Diagnosis: Same Surgery/Procedure Performed:: Endoscopic control of left nasal hemorrhage Description of Surgical Findings:: The patient is a 59-year-old female with a marked left nasal hemorrhage failing control with nasal packing and a significant drop in her hemoglobin despite supportive care with transfusions. She is counseled guarding operative control of her bleeding given its severity and she is agreeable to proceed. The risks, alternatives, potential complications, and benefits were discussed at length and any questions answered to the patient and/or caregiver's satisfaction. Witnessed informed consent was obtained in the office, and the patient and/or caregiver was agreeable to proceed. Procedure went as follows: The patient was identified in the preoperative holding and brought to the operating room, was placed under general anesthesia and intubated using rapid sequence technique. When appropriate anesthesia was obtained, the left nasal packing was removed and pledgets soaked in oxymetazoline were placed to decongest the nasal mucosa. These were then removed and beginning on the left side using a 0? endoscope the nasal cavity examined. No to be large amount of blood clot which is suctioned and clear. This was darker and more organized anteriorly and bright red more posteriorly. After clearing this there is no to be bright red bleeding sites of the mid inferior turbinate as well as high along the insertion of the middle turbinate. The sites were then cauterized with suction electrocautery and the nasal cavities irrigated until clear saline solution. Observation showed continuing ooze along the anterior aspect of the inferior turbinate and this was additionally cauterized. This resulted in no further sites of bleeding being noted. The right side was then examined where no site of bleeding was identified. Attention was then returned to the left side where FloSeal hemostatic agent was applied followed by Surgicel to support the recently cauterized area in the hopes of suppression of any additional bleeding given the severity of her blood loss. An NG tube was then placed to decompress the stomach and the patient returned to anesthesia, revived and extubated having tolerated the procedure well. Type of Anesthesia:: General Anesthesiologist: Rah Harrison Special Medications: none Specimen's removed: none Drains: none Estimated Blood Loss (mL): 100 mL Fluids Replaced: 700 mL Grafts/Implants Used: none - Complications none - Admit VTE Documentation VTE Present on Admission: No VTE Mechan Device Prophylaxis: None VTE Pharm Prophylaxis ordered?: No Reason prophylaxis not ordered:: Procedure Not Indicated
--- NOTE | 2020-01-30 17:11 | NURSING ---
verified blood with Ann Franklin RN at this time. She states that she verified blood with Abena Dolan in OR when blood was started but it did not save in computer.
[2020-01-30] MEDS: Ondansetron 4 MG/2 ML Vial IV (18:32)
[2020-01-30] MEDS: 0.9% Saline Lock 10 ML Syringe IV ×3 (18:32→21:12)
--- NOTE | 2020-01-30 18:50 | NURSING ---
This RN got pt up to [facility]. Pt stating she was SOB. Applied 2L N/C. Pt became unresponsive. Staff Assist called. Additional floor staff in room. Pt remains unresponsive, has a pulse. Assisted getting patient back to bed. [facility] [employer] [facility] called. Pt became alert once back in bed. BP 98/60. Pt urinated and had BM. DR Gilman and Dr Smith in room. Orders to give PRN lasix at this time with blood transfusing. Pt to be bedrest.
[2020-01-30] MEDS: Ipratropium/Albuterol Sulfate 3 ML AMPUL.NEB INHALATION (19:09)
[2020-01-30] MEDS: Furosemide 20 MG/2 ML VIAL IV (19:15)
[2020-01-30] MEDS: proCHLORPERazine 10 MG/2 ML Vial 5 MG IV (21:11)
--- NOTE | 2020-01-30 21:22 | NURSING ---
PT C/O SOB. SPO2@98-100%. LS CLEAR. 2LNC APPLIED FOR COMFORT. WILL MONITOR.
[2020-01-30] MEDS: Docusate Sodium 100 MG Capsule PO (22:11)
[2020-01-30] MEDS: OLANZapine 10 MG Tablet PO (22:11)
--- NOTE | 2020-01-30 23:45 | NURSING ---
VS CHARTED AT 2157 TAKEN AT 2341. UNABLE TO EDIT TAR VS TO REFLECT ACCURATE TIME.
[2020-01-31] VITALS (14 sets, daily range): BP systolic 145–160; BP diastolic 76–87; PULSE 83–109; RESP 15–20; TEMP 36.8–37.4; O2SAT 96–978
[2020-01-31] MEDS: 0.9% Normal Saline 1,000 ML 100 ML IV ×2 (02:00→13:55)
[2020-01-31 03:31] LABS: Absolute Lymphocyte Count 4.29 X10^3/uL (0.83-4.51); Basophil# 0.05 X10^3/uL; Basophil% 0.4 % (0-1); Hematocrit 31.4 % (37-47); Hemoglobin 10.9 g/dL (12.0-15.0); Lymphocyte # 4.29 X10^3/ul (4.0); Lymphocyte % 36.6 % (19-41); Mean Corp Hgb Conc 34.7 g/dL (32-36); Mean Corpuscular Hgb 31.3 pg (27.0-32.0); Mean Corpuscular Volume 90.2 fL (81-99); Mean Platelet Vol. 13.9 fl (6.2-12.0); Monocyte# 1.05 X10^3/uL; NRBC Flagged by Analyzer 1.4 % (0-5); Neutrophil # 6.01 X10^3/uL (2.7-7.7); Neutrophil % 51.4 % (47-70); POSITIVE COUNT YES; Platelet Count 97 K/mm3 (150-450); RBC Distribution Width CV 15.9 % (11.6-14.6); RBC Distribution Width SD 46.8 fl (35.1-43.9); Red Blood Count 3.48 M/mm3 (4.2-5.4); White Blood Count 11.7 K/mm3 (4.4-11.0)
[2020-01-31] MEDS: Levothyroxine 25 MCG TABLET PO (06:02)
--- NOTE | 2020-01-31 07:03 | PN_ITS ---
Patient Problems: Active and Suspected Problems Epistaxis (Acute) Hemorrhage (Acute) Acute blood loss anemia (Acute) Subjective: Patient overnight with no acute events per self and per nursing report, clinically improved since rapid the evening prior when patient had been recently transition from OR back to PCU and was up to bedside commode with syncopal event. Patient overnight had no further bleeding but this morning had onset of post urinary bleeding and eventually had blood anteriorly as well. Contacted ENT immediately who requested Rhino Rocket be placed which was performed with no recurrent bleeding following. With onset of recurrent epistaxis patient did note nausea with mild abdominal cramping, improved with antiemetic regimen. Patient denies fevers, chills, emesis, chest pain or dyspnea. Objective: Physical Examination: General: awake, alert, oriented x 3 and cooperative, seated upright in the PCU bed, fatigued, less pale than day prior. Skin: Pale color, normal turgor, no icterus, no cyanosis. HEENT: AT/NC, EOMI, PERRLA, dry MM, left nare initially without acute finding however reevaluation with recurrent bleeding, large blood clots noted in the oropharynx posteriorly, eventually also anteriorly with Rhino Rocket placed. Lungs: Diminished breath sounds, greater bases, normal effort despite anemia, no rales, ronchi or wheezing. Heart: Initially regular rate with regular rhythm but with recurrent bleeding mild tachycardia; no gallop, rub audible. Abdomen: soft, thin cachectic habitus, NTTP, ND, mildly hyperactive bowel sounds. Extremities: no cyanosis, clubbing, or edema. Neurological: patient awake, alert, oriented x 3; cognitive function intact; pupils equally reactive to light and accomodation; cranial nerves II-XII grossly normal, moving all 4 extremities, no focal deficits, strength remains severely global decrease secondary to acute presentation. Psychiatric: affect appears fatigued, pale, no acute evidence of depressive or anxiety feelings. Vitals/I&O's: Vital Signs Temp Pulse Resp BP Pulse Ox 98.4 F 94 20 H 157/87 H 100 01/31/20 01:56 01/31/20 03:00 01/31/20 01:56 01/31/20 01:56 01/31/20 01:56 Oxygen Flow Rate (L/min) 2 Oxygen Delivery Method Nasal Cannula Weight: 92 lb 15.997 oz Body Mass Index (BMI) 16.0 Intake and Output for Last 24 Hours 01/29/20 01/30/20 01/31/20 23:59 23:59 23:59 Intake Total 3933.33 / 4173.33 840 / 840 Output Total 250 / 250 Balance 3933.33 / 3923.33 590 / 590 Microbiology Past 72 Hours 01/30/20 13:10 Stool Stool Occult Blood (WENDY) - Final Occult Blood Positive Laboratory Results 01/30/20 09:00: WBC 7.9, RBC 2.20 L, Hgb 7.4 L, Hct 23.4 L, MCV 106.4 H, MCH 33.6 H, MCHC 31.6 L, RDW Std Deviation 76.1 H, RDW Coeff of Aracely 20.2 H, Plt Count 142 L, MPV 13.5 H, Immature Gran % (Auto) 1.100 H, Neut % (Auto) 51.7, Lymph % (Auto) 36.2, [place] % (Auto) 10.1 H, Eos % (Auto) 0.4, Baso % (Auto) 0.5, Absolute Neuts (auto) 4.1, Absolute Lymphs (auto) 2.86, Nucleated RBC % 0.5, Anisocytosis 1+ 01/30/20 09:00: PT 12.4, INR 1.0 01/30/20 09:00: Sodium 144, Potassium 4.3, Chloride 116 H, Carbon Dioxide 24.0, Anion Gap 4 L, BUN 31 H, Creatinine 1.38 H, Estim Creat Clear Calc 31.53, Est GFR (MDRD) Af Amer 50 L, Est GFR (MDRD) Non-Af 42 L, BUN/Creatinine Ratio 22.5 H , Glucose 142 H, Calcium 8.1 L 01/30/20 09:00: Blood Type O POSITIVE, Antibody Screen NEGATIVE 01/30/20 09:00: Crossmatch See Detail 01/30/20 09:00: Phosphorus 4.8, Magnesium 1.8, Folate .01/30/20 09:00: Crossmatch See Detail 01/30/20 13:20: Vitamin B12 252 01/30/20 13:20: Hgb 7.5 L, Hct 23.6 L 01/31/20 03:22: WBC 11.7 H, RBC 3.48 L, Hgb 10.9 L, Hct 31.4 L, MCV 90.2 D, MCH 31.3, MCHC 34.7 D, RDW Std Deviation 46.8 H, RDW Coeff of Aracely 15.9 H, Plt Count 97 L, MPV 13.9 H, Immature Gran % (Auto) 2.600 H, Neut % (Auto) 51.4, Lymph % (Auto) 36.6, [place] % (Auto) 9.0, Eos % (Auto) 0.0, Baso % (Auto) 0.4, Absolute Neuts (auto) 6.0, Absolute Lymphs (auto) 4.29, Nucleated RBC % 1.4 Current Medications Acetaminophen (Acetaminophen 325 Mg Tablet) 650 mg PO Q6H PRN PRN PRN Reason: Pain Score 1-10/Temp > 100.7 F Al Hydroxide/Mg Hydroxide (Mag Hydrox/Al Hydrox/Simeth 30 Ml Udc) 30 ml PO Q6H PRN PRN PRN Reason: Gastric Burning Albuterol Sulfate (Albuterol 2.5 Mg/3 Ml Vial.Neb.) 2.5 mg INHALATION Q2H PRN PRN PRN Reason: Dyspnea, wheezing Albuterol/Ipratropium (Ipratropium/Albuterol Sulfate 3 Ml Ampul.Neb) 3 ml INHALATION Q6HWA.RT [facility] Last Admin: 01/30/20 19:09 Dose: 3 ml Documented by: Cholecalciferol (Cholecalciferol (Vit D3) 1,000 Unit (25mcg)) 1,000 unit PO D JOHANY [facility] Docusate Sodium (Docusate Sodium 100 Mg Capsule) 100 mg PO BID [facility] Last Admin: 01/30/20 22:11 Dose: 100 mg Documented by: Furosemide (Furosemide 20 Mg/2 Ml Vial) 20 mg IV X1 PRN PRN Reason: fluid overload Last Admin: 01/30/20 19:15 Dose: 20 mg Documented by: Guaifenesin (Guaifenesin 10 Ml Udc (200mg/10ml)) 20 ml PO Q4H PRN PRN PRN Reason: COUGH Hydralazine HCl (Hydralazine 20 Mg/Ml Vial) 10 mg IV Q4H PRN PRN PRN Reason: SBP > 160 Sodium Chloride () 1,000 mls @ 100 mls/hr IV .Q10H [facility] Last Admin: 01/31/20 02:00 Dose: 100 mls/hr Documented by: Sodium Chloride () 500 mls @ 15 mls/hr IV PRN PRN PRN Reason: Blood Transfusion Sodium Chloride () 250 mls @ 15 mls/hr IV .[id number] PRN PRN Reason: Saline Flush Sodium Chloride () 250 mls @ 15 mls/hr IV .[id number] PRN PRN Reason: Additional IVPB Infusion Lamotrigine (Lamotrigine 100 Mg Tablet) 100 mg PO DAILY [facility] Levothyroxine Sodium (Levothyroxine 25 Mcg Tablet) 25 mcg PO DAILY@0600 [facility] Last Admin: 01/31/20 06:02 Dose: 25 mcg Documented by: Lidocaine/Prilocaine (Lidocaine/Prilocaine Hcl 5 Gm Tube) 1 gm TOPICAL UD PRN PRN Reason: PORT ACCESS Magnesium Hydroxide (Magnesium Hydroxide 30 Ml Udc) 30 ml PO DAILY PRN PRN PRN Reason: Constipation Melatonin (Melatonin 3 Mg Tablet) 3 mg PO QHS PRN PRN PRN Reason: INSOMNIA Morphine Sulfate (Morphine 2 Mg/Ml Syringe) 2 mg IV Q3H PRN PRN PRN Reason: Pain Score 6-10 Olanzapine (Olanzapine 10 Mg Tablet) 10 mg PO QHS [facility] Last Admin: 01/30/20 22:11 Dose: 10 mg Documented by: Ondansetron HCl (Ondansetron 4 Mg/2 Ml Vial) 4 mg IV Q8H PRN PRN PRN Reason: NAUSEA/VOMITING Last Admin: 01/30/20 18:32 Dose: 4 mg Documented by: Oxycodone HCl (Oxycodone 5 Mg Tablet) 5 mg PO Q4H PRN PRN PRN Reason: Pain Score 4-5 Pantoprazole Sodium (Pantoprazole Sodium 20 Mg Tablet) 20 mg PO DAILY PRN PRN Reason: gastritis Prochlorperazine Edisylate (Prochlorperazine 10 Mg/2 Ml Vial) 5 mg IV Q4H PRN PRN PRN Reason: Breakthrough Nausea/Vomiting Last Admin: 01/30/20 21:11 Dose: 5 mg Documented by: Psyllium Hydrophilic Mucilloid (Psyllium 1 Packet) 1 packet PO DAILY PRN PRN PRN Reason: Constipation Sodium Chloride (0.9% Saline Lock 10 Ml Syringe) 10 - 40 ml IV UD PRN PRN Reason: SALINE FLUSH Last Admin: 01/30/20 21:12 Dose: 10 ml Documented by: Throat Lozenges (Benzocaine/Menthol 1 Lozenge) 1 lozenge MUCOUS MEM Q2H PRN PRN PRN Reason: SORE THROAT Medical Necessity - Tobacco Use Smoking Status: Current every day smoker - Patient with ongoing cigarette tobacco usage currently approximately 2 cigarettes daily but had been up to 1/2 pack/day since she been a teenager. Tobacco Use: Cigarettes Assessment/Plan All Active Problems Chemotherapy adverse reaction (Resolved) Epistaxis (Acute) Hemorrhage (Acute) Acute blood loss anemia (Acute) The patient is a 59 y/o F w/ PMHx: Chronic COPD, Anxiety and Depression, Hypothyroidism, HTN, GERD who presents to the [facility] ED on 01/30/20 with history of significant onset of epistaxis from the left nare with large red clots, coughing up the blood and significant nausea related with no recent episodes of black or bloody stools and no hematemesis prompting ED presentation secondary to fatigue, dyspnea, lightheadedness and dizziness. 1. Acute on chronic blood loss anemia secondary to ongoing epistaxis and chemotherapy: Hemoglobin 7.4, most recent hemoglobin previous to this noted on 01/14/2020 11.2 but prior to this on 12/17/2019 hemoglobin had been 5.1 with range most commonly 13, ED placed a coag IT pack. Patient was admitted to the PCU, continue the coag IT pack however patient had recurrent episodes of coughing up blood significantly large clots with resulting significant nausea and bouts of emesis with significant blood noted, continue to administer blood ordered in the ED with following even the first unit repeat hemoglobin 7.5, discussed case emergently with Dr. Lopez, ENT who took the patient to the operating room to achieve endoscopic control of the left nasal hemorrhage, 2 additional unit PRBC administered with repeat 01/31/2020 a.m. hemoglobin 10.9. Patient with 01/31/2020 recurrent bleeding, ENT updated and requested Rhino Rocket be placed which was performed. Patient with hemostasis achieved with no further bleeding with repeat hemoglobin trending 9.9 and most recently 8.3, an additional 2 unit PRBC ordered and on hold, 1 pack of platelets requested and being transfused with 01/31/2020 CBC with platelets 97, decreased from 142. 2. 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 Groves, magnesium phosphorus levels normal, will encourage continued follow-up outpatient with oncology, defer inpatient consultation unless necessary. Admission CBC with WC 7.9, hemoglobin 7.4 and as noted acute on chronic, platelets 142. 01/31/2020 CBC with decreased platelets 97, given active bleeding number one 1 pack platelets ordered and being transfused. 3. Chronic Kidney Disease Stage III with renal insufficiency: Admission BUN/Cr 31/1.38, baseline renal function 1.1-1.3 however appears to have been trending upwards since 07/30/2018 noted to be 0.97 at that time and previously 0.7, 01/31/2020 BUN/creatinine 82/1.51 however patient with significant bleeding as noted overnight, will continue to trend and judiciously hydrating. 4. Hyperglycemia: Admission glucose 142, improved, if recurrent will obtain A1c, likely stress response. 5. Chronic COPD: Will maintain on oxygen with wean as tolerated to room air, continue ATC duonebs, PRN albuterol, HOB, IS parameters. 6. Hypothyroidism: Continue home synthroid regimen. 7. Hypertension: We will hold patient regimen given low blood pressure in the ED secondary to acute blood loss anemia as noted #1, add regimen once appropriate, however given recurrent bleeding episodes if hypotensive would plan transition to the ICU which was discussed with the public health dentist. 8. Tobacco Abuse: Encouraged cessation, inpatient consultation per RT, NR if desired. 9. Anxiety and depression: We will continue patient home Lamictal, olanzapine regimen. 10. GERD: We will continue patient home PPI. 11. Severe protein calorie malnutrition: Evidenced by reduced BMI, body habitus with significant muscle and fat loss, nutrition consulted. 12. DVT prophylaxis: SCDs, defer any chemoprophylaxis given acute presentation as noted #1. 13. CODE status: Patient ANA CRISTINA is her son and living will is currently in place. Full Code. Daughter updated today per patient request. Inpatient E&M: [id number] [facility] H[facility] L3
[2020-01-31] MEDS: Ipratropium/Albuterol Sulfate 3 ML AMPUL.NEB INHALATION (07:46)
[2020-01-31 08:20] LABS: ALB/GLOB Ratio 0.7 RATIO (0.9-2.4); AST(SGOT) 44 U/L (15-37); Alanine Aminotransfer ALT/SGPT 35 U/L (13-56); Albumin, Serum 1.6 g/dL (3.2-5.0); Alkaline Phosphatase 87 U/L (45-117); Anion Gap 8 (5-15); BUN 82 mg/dL (7-18); BUN/Creat Ratio 54.3 RATIO (10-20); Calcium,Total 6.4 mg/dL (8.5-10.1); Chloride 114 mmol/L (98-107); Creatinine, Serum 1.51 mg/dL (0.55-1.02); EST Glomerular Filtration Rate 38 mL/min (>60); Est Glom Filt Rate - Afr Amer 45 mL/min (>60); Estimated Creatinine Clearance 26.71 ml/min; Globulin 2.2 g/dL (2.2-4.2); Glucose 100 mg/dL (74-106); Potassium 4.7 mmol/L (3.5-5.1); Protein, Total 3.8 g/dL (6.4-8.2); Sodium Level 139 mmol/L (136-145)
[2020-01-31 09:31] LABS: Hematocrit 29.2 % (37-47); Hemoglobin 9.9 g/dL (12.0-15.0)
[2020-01-31] MEDS: Calcium Gluconate 1 GM/10 ML Vial IV (10:27)
[2020-01-31] MEDS: Ondansetron 4 MG/2 ML Vial IV (10:34)
[2020-01-31] MEDS: proCHLORPERazine 10 MG/2 ML Vial 5 MG IV (10:40)
[2020-01-31] MEDS: lamoTRIgine 100 MG Tablet PO (10:43)
[2020-01-31] MEDS: Docusate Sodium 100 MG Capsule PO (10:43)
--- NOTE | 2020-01-31 11:23 | PCM.PROGNOTE ---
Patient Problems: Active and Suspected Problems Epistaxis (Acute) Hemorrhage (Acute) Acute blood loss anemia (Acute) Subjective: Patient reports nasal bleeding gain this AM. Left nasal pack placed, no further bleeding or expectoration of blood clots for over 1 hour. She reports a history of hypertension and currently undergoing chemotherapy for metastatic ovarian cancer. Objective: Well appearing in bed, alert and conversant. Rhinorocket in place left nostril. No bleeding around pack. Organized scant blood in posterior pharynx, but no active bleeding or expectoration of clots. - Physical Exam Vitals/I&O's: Vital Signs Temp Pulse Resp BP Pulse Ox 98.4 F 104 H 18 152/82 H 98 01/31/20 09:50 01/31/20 09:50 01/31/20 09:50 01/31/20 09:50 01/31/20 09:50 Oxygen Flow Rate (L/min) 2 Oxygen Delivery Method Room Air Weight: 42.184 kg Body Mass Index (BMI) 16.0 Intake and Output for Last 24 Hours 01/29/20 01/30/20 01/31/20 23:59 23:59 23:59 Intake Total 3933.33 / 4173.33 840 / 840 Output Total 250 / 250 Balance 3933.33 / 3923.33 590 / 590 General: Alert, Oriented x3 HEENT: Atraumatic, PERRLA Oral: Moist Mucosa Neck: Supple Psych/Mental Status: Alert and oriented to time, place, person, mood and affect Microbiology Past 72 Hours 01/30/20 13:10 Stool Stool Occult Blood (WENDY) - Final Occult Blood Positive Laboratory Results 01/30/20 09:00: Crossmatch See Detail 01/30/20 09:00: Phosphorus 4.8, Magnesium 1.8, Folate 11.01/30/20 09:00: Crossmatch See Detail 01/30/20 09:00: Crossmatch See Detail 01/30/20 13:20: Vitamin B12 252 01/30/20 13:20: Hgb 7.5 L, Hct 23.6 L 01/31/20 03:22: WBC 11.7 H, RBC 3.48 L, Hgb 10.9 L, Hct 31.4 L, MCV 90.2 D, MCH 31.3, MCHC 34.7 D, RDW Std Deviation 46.8 H, RDW Coeff of Aracely 15.9 H, Plt Count 97 L, MPV 13.9 H, Immature Gran % (Auto) 2.600 H, Neut % (Auto) 51.4, Lymph % (Auto) 36.6, [place] % (Auto) 9.0, Eos % (Auto) 0.0, Baso % (Auto) 0.4, Absolute Neuts (auto) 6.0, Absolute Lymphs (auto) 4.29, Nucleated RBC % 1.4 01/31/20 07:43: Sodium 139, Potassium 4.7, Chloride 114 H, Carbon Dioxide 17.0 L, Anion Gap 8, BUN 82 H, Creatinine 1.51 H, Estim Creat Clear Calc 26.71, Est GFR (MDRD) Af Amer 45 L, Est GFR (MDRD) Non-Af 38 L, BUN/Creatinine Ratio 54.3 H, Glucose 100, Calcium 6.4 L*, Total Bilirubin 0.30, AST 44 H, ALT 35, Alkaline Phosphatase 87, Total Protein 3.8 L, Albumin 1.6 L, Globulin 2.2, Albumin/Globulin Ratio 0.7 L 01/31/20 07:43: Hgb 9.9 L, Hct 29.2 L Current Medications Acetaminophen (Acetaminophen 325 Mg Tablet) 650 mg PO Q6H PRN PRN PRN Reason: Pain Score 1-10/Temp > 100.7 F Al Hydroxide/Mg Hydroxide (Mag Hydrox/Al Hydrox/Simeth 30 Ml Udc) 30 ml PO Q6H PRN PRN PRN Reason: Gastric Burning Albuterol Sulfate (Albuterol 2.5 Mg/3 Ml Vial.Neb.) 2.5 mg INHALATION Q2H PRN PRN PRN Reason: Dyspnea, wheezing Albuterol/Ipratropium (Ipratropium/Albuterol Sulfate 3 Ml Ampul.Neb) 3 ml INHALATION Q6HWA.RT [facility] Last Admin: 01/31/20 07:46 Dose: 3 ml Documented by: Cholecalciferol (Cholecalciferol (Vit D3) 1,000 Unit (25mcg)) 1,000 unit PO DAILY [facility] Last Admin: 01/31/20 10:43 Dose: 1,000 unit Documented by: Docusate Sodium (Docusate Sodium 100 Mg Capsule) 100 mg PO BID [facility] Last Admin: 01/31/20 10:43 Dose: 100 mg Documented by: Furosemide (Furosemide 20 Mg/2 Ml Vial) 20 mg IV X1 PRN PRN Reason: fluid overload Last Admin: 01/30/20 19:15 Dose: 20 mg Documented by: Guaifenesin (Guaifenesin 10 Ml Udc (200mg/10ml)) 20 ml PO Q4H PRN PRN PRN Reason: COUGH Hydralazine HCl (Hydralazine 20 Mg/Ml Vial) 10 mg IV Q4H PRN PRN PRN Reason: SBP > 160 Sodium Chloride () 1,000 mls @ 125 mls/hr IV .Q8H [facility] Last Admin: 01/31/20 02:00 Dose: 100 mls/hr Documented by: Sodium Chloride () 500 mls @ 15 mls/hr IV PRN PRN PRN Reason: Blood Transfusion Sodium Chloride () 250 mls @ 15 mls/hr IV .[id number] PRN PRN Reason: Saline Flush Sodium Chloride () 250 mls @ 15 mls/hr IV .[id number] PRN PRN Reason: Additional IVPB Infusion Lamotrigine (Lamotrigine 100 Mg Tablet) 100 mg PO DAILY [facility] Last Admin: 01/31/20 10:43 Dose: 100 mg Documented by: Levothyroxine Sodium (Levothyroxine 25 Mcg Tablet) 25 mcg PO DAILY@0600 [facility] Last Admin: 01/31/20 06:02 Dose: 25 mcg Documented by: Lidocaine/Prilocaine (Lidocaine/Prilocaine Hcl 5 Gm Tube) 1 gm TOPICAL UD PRN PRN Reason: PORT ACCESS Magnesium Hydroxide (Magnesium Hydroxide 30 Ml Udc) 30 ml PO DAILY PRN PRN PRN Reason: Constipation Melatonin (Melatonin 3 Mg Tablet) 3 mg PO QHS PRN PRN PRN Reason: INSOMNIA Morphine Sulfate (Morphine 2 Mg/Ml Syringe) 2 mg IV Q3H PRN PRN PRN Reason: Pain Score 6-10 Olanzapine (Olanzapine 10 Mg Tablet) 10 mg PO QHS [facility] Last Admin: 01/30/20 22:11 Dose: 10 mg Documented by: Ondansetron HCl (Ondansetron 4 Mg/2 Ml Vial) 4 mg IV Q8H PRN PRN PRN Reason: NAUSEA/VOMITING Last Admin: 01/31/20 10:34 Dose: 4 mg Documented by: Oxycodone HCl (Oxycodone 5 Mg Tablet) 5 mg PO Q4H PRN PRN PRN Reason: Pain Score 4-5 Pantoprazole Sodium (Pantoprazole Sodium 20 Mg Tablet) 20 mg PO DAILY PRN PRN Reason: gastritis Prochlorperazine Edisylate (Prochlorperazine 10 Mg/2 Ml Vial) 5 mg IV Q4H PRN PRN PRN Reason: Breakthrough Nausea/Vomiting Last Admin: 01/31/20 10:40 Dose: 5 mg Documented by: Psyllium Hydrophilic Mucilloid (Psyllium 1 Packet) 1 packet PO DAILY PRN PRN PRN Reason: Constipation Sodium Chloride (0.9% Saline Lock 10 Ml Syringe) 10 - 40 ml IV UD PRN PRN Reason: SALINE FLUSH Last Admin: 01/30/20 21:12 Dose: 10 ml Documented by: Throat Lozenges (Benzocaine/Menthol 1 Lozenge) 1 lozenge MUCOUS MEM Q2H PRN PRN PRN Reason: SORE THROAT Medical Necessity - Tobacco Use Smoking Status: Current every day smoker - Patient with ongoing cigarette tobacco usage currently approximately 2 cigarettes daily but had been up to 1/2 pack/day since she been a teenager. Tobacco Use: Cigarettes Assessment/Plan All Active Problems Chemotherapy adverse reaction (Resolved) Epistaxis (Acute) Hemorrhage (Acute) Acute blood loss anemia (Acute) Patient with severe epistaxis yesterday, controlled with nasal cautery, Floseal and Surgicel reinforcement yesterday. Some recurrent bleeding today that does not seem as severe at appears controlled at this time with nasal pack. I do not see need for further intervention at this time. I would continue to monitor Hgb as she is relatively insensate to swallowed blood and vomited large quantities with her bleed yesterday. I would advise leaving packing in place for 72 hours after which time it may be removed if no further bleeding. No involvement of her metastatic disease was noted on endoscopy, but recognition of her likely terminal illness is made and ongoing involvement with her regarding decision making as to degree of aggressiveness of intervention is encouraged. Please notify me of any further tamara bleeding or decline in Hgb levels suggestive of further bleeding. Prophylactic antibiotic coverage is encouraged with packing, although the role for prevention of toxic shock is unconfirmed.
[2020-01-31 14:33] LABS: Hematocrit 24.5 % (37-47); Hemoglobin 8.3 g/dL (12.0-15.0)
[2020-01-31] MEDS: Acetaminophen 325 MG Tablet 650 MG PO (16:09)
[2020-01-31] MEDS: oxyCODONE 5 MG Tablet PO ×2 (18:05→22:48)
[2020-01-31 19:37] LABS: Bacteria 0 SEEN /hpf (None Seen); Mucous, Urine 0 SEEN /hpf (<or=2+); Red Blood Cells-Urine 0 SEEN /hpf (0-5); Squamous Epithelial Cells - UA 0 SEEN /hpf (5-10); White Blood Cells 0 SEEN /hpf (0-5)
[2020-01-31 20:04] LABS: Color, Urine Yellow (Yellow); Glucose, Dipstick Normal (Normal); Ketone-Dipstick Negative (Negative); Leukocyte Esterase-Dipstick Negative /ul (Negative); Nitrite-Dipstick Negative (Negative); Occult Blood-Urine 10 /ul (Negative); Protein-Dipstick 100 mg/dl (Negative); Urine Bilirubin Dipstick Negative (Negative); Urine Clarity Clear (Clear); Urine Urobilinogen Normal (Normal)
[2020-01-31] MEDS: 0.9% Saline Lock 10 ML Syringe IV ×2 (21:42→22:48)
[2020-01-31] MEDS: 0.9% Normal Saline 1,000 ML 125 ML IV (22:42)
[2020-01-31] MEDS: OLANZapine 10 MG Tablet PO (22:49)
[2020-01-31] MEDS: Amox/Clavulanate 500 MG Tablet PO (22:50)
[2020-01-31 23:34] LABS: Hematocrit 26.7 % (37-47); Hemoglobin 9.1 g/dL (12.0-15.0)
[2020-02-01] VITALS (10 sets, daily range): BP systolic 157–179; BP diastolic 79–84; PULSE 82–96; RESP 13–17; TEMP 36.7–37.2; O2SAT 94–98
[2020-02-01] MEDS: Levothyroxine 25 MCG TABLET PO (06:29)
[2020-02-01] MEDS: 0.9% Normal Saline 1,000 ML 125 ML IV (06:30)
[2020-02-01 06:36] LABS: Absolute Lymphocyte Count 4.47 X10^3/uL (0.83-4.51); Absolute Neutrophil Count 5.6 X10^3/uL (2.0-7.7); Basophil# 0.07 X10^3/uL; Basophil% 0.6 % (0-1); Eosinophil# 0.09 X10^3/uL; Eosinophils% 0.8 % (0-5); Hematocrit 26.9 % (37-47); Hemoglobin 9.2 g/dL (12.0-15.0); Lymphocyte # 4.47 X10^3/ul (4.0); Lymphocyte % 37.3 % (19-41); Mean Corp Hgb Conc 34.2 g/dL (32-36); Mean Corpuscular Hgb 31.8 pg (27.0-32.0); Mean Corpuscular Volume 93.1 fL (81-99); Mean Platelet Vol. 11.3 fl (6.2-12.0); Monocyte# 1.51 X10^3/uL; Monocyte% 12.6 % (0-10); NRBC Flagged by Analyzer 5.3 % (0-5); Neutrophil # 5.59 X10^3/uL (2.7-7.7); Neutrophil % 46.5 % (47-70); POSITIVE COUNT YES; POSITIVE DIFFERENTIAL YES; POSITIVE MORPHOLOGY YES; Platelet Count 106 K/mm3 (150-450); RBC Distribution Width CV 16.4 % (11.6-14.6); RBC Distribution Width SD 49.9 fl (35.1-43.9); Red Blood Count 2.89 M/mm3 (4.2-5.4)
[2020-02-01 06:39] LABS: Differential Indicated SCAN CRITERIA MET
[2020-02-01 07:03] LABS: Differential Comment SCANNED
[2020-02-01 07:32] LABS: ALB/GLOB Ratio 0.7 RATIO (0.9-2.4); AST(SGOT) 89 U/L (15-37); Alanine Aminotransfer ALT/SGPT 39 U/L (13-56); Albumin, Serum 1.8 g/dL (3.2-5.0); Alkaline Phosphatase 84 U/L (45-117); Anion Gap 7 (5-15); BUN 55 mg/dL (7-18); BUN/Creat Ratio 48.7 RATIO (10-20); Calcium,Total 6.9 mg/dL (8.5-10.1); Chloride 121 mmol/L (98-107); Creatinine, Serum 1.13 mg/dL (0.55-1.02); EST Glomerular Filtration Rate 52 mL/min (>60); Est Glom Filt Rate - Afr Amer 63 mL/min (>60); Globulin 2.5 g/dL (2.2-4.2); Glucose 101 mg/dL (74-106); Potassium 4.6 mmol/L (3.5-5.1); Protein, Total 4.3 g/dL (6.4-8.2); Sodium Level 143 mmol/L (136-145)
--- NOTE | 2020-02-01 07:38 | EKG12_ITS ---
Test Reason : RHYTHM Blood Pressure : / mmHG Vent. Rate : 089 BPM Atrial Rate : 089 BPM P-R Int : 146 ms QRS Dur : 104 ms QT Int : 368 ms P-R-T Axes : 083 074 067 degrees QTc Int : 447 ms Normal sinus rhythm Nonspecific T wave abnormality Abnormal ECG Confirmed by ADELSO RUBIO, ZACKERY ([id number]), business editor RIMMA HOLLAND ([id number]) on 02/04/2020 2:00:09 PM Referred By: PJ Confirmed By:ZACKERY DARDEN MD
[2020-02-01] MEDS: lamoTRIgine 100 MG Tablet PO (11:09)
[2020-02-01] MEDS: oxyCODONE 5 MG Tablet PO ×2 (11:09→21:24)
[2020-02-01] MEDS: amLODIPine 5 MG Tablet PO ×2 (11:09→14:59)
[2020-02-01] MEDS: Amox/Clavulanate 875 MG Tablet PO ×2 (11:09→21:24)
--- NOTE | 2020-02-01 11:26 | PCM.PN.HOSP ---
Patient Problems: Active and Suspected Problems Epistaxis (Acute) Hemorrhage (Acute) Acute blood loss anemia (Acute) Reason for Visit: nosebleed. Subjective: no bleeding today. no hemoptysis. Pt does not feel/taste blood in the posterior oropharynx. No fever/chills. No LH/dizzines, no SOB. She complains of generalized weakness. Vitals/I&O's: Vital Signs Temp Pulse Resp BP Pulse Ox 98.9 F 86 17 179/80 H 97 02/01/20 10:53 02/01/20 10:53 02/01/20 10:53 02/01/20 10:53 02/01/20 10:53 Oxygen Flow Rate (L/min) 2 Oxygen Delivery Method Room Air Weight: 92 lb 15.997 oz Body Mass Index (BMI) 16.0 Intake and Output for Last 24 Hours 01/30/20 01/31/20 02/01/20 23:59 23:59 23:59 Intake Total 3933.33 / 4173.33 3483.33 / 3483.33 1120 / 1120 Output Total 250 / 250 Balance 3933.33 / 3923.33 3233.33 / 3233.33 1120 / 1120 General: Alert, Oriented x3, Cooperative HEENT: Atraumatic, PERRLA, EOMI, Normocephalic, - - rhinorocket in place left nare. Neck: Supple, No JVD, Negative Carotid Bruits Lungs: Clear to auscultation, Normal air movement Cardiovascular: Regular rate, No murmurs Abdomen: Bowel Sounds Present, Soft, Non Tender Extremities: No edema, Capillary Refill Less than 3 Seconds Skin: No rashes, No breakdown Musculoskeletal: No Tenderness to Palpation of Joints or Extremities Neurological: Cranial nerves II-XII grossly intact Psych/Mental Status: Normal Affect, Appropriate Microbiology Past 72 Hours 01/30/20 13:10 Stool Stool Occult Blood (WENDY) - Final Occult Blood Positive Laboratory Results 01/30/20 09:00: Crossmatch See Detail 01/30/20 09:00: Crossmatch See Detail 01/31/20 14:30: Hgb 8.3 L, Hct 24.5 L 01/31/20 19:20: Urine Color Yellow, Urine Clarity Clear, Urine pH 6.0, Ur Specific [place] 1.010, Urine Protein 100 H, Urine Glucose (UA) Normal, Urine Ketones Negative, Urine Occult Blood 10 H, Urine Nitrite Negative, Urine Bilirubin Negative, Urine Urobilinogen Normal, Ur Leukocyte Esterase Negative, Urine RBC 0 SEEN, Urine WBC 0 SEEN, Ur Squamous Epith Cells 0 SEEN, Urine Bacteria 0 SEEN, Urine Mucus 0 SEEN 01/31/20 22:50: Hgb 9.1 L, Hct 26.7 L 02/01/20 06:15: WBC 12.0 H, RBC 2.89 L, Hgb 9.2 L, Hct 26.9 L, MCV 93.1, MCH 31.8, MCHC 34.2, RDW Std Deviation 49.9 H, RDW Coeff of Aracely 16.4 H, Plt Count 106 L, MPV 11.3, Immature Gran % (Auto) 2.200 H, Neut % (Auto) 46.5 L, Lymph % (Auto) 37.3, [place] % (Auto) 12.6 H, Eos % (Auto) 0.8, Baso % (Auto) 0.6, Absolute Neuts (auto) 5.6, Absolute Lymphs (auto) 4.47, Nucleated RBC % 5.3 H, Differential Comment SCANNED, Diff Path Review July foll 02/01/20 06:29: Sodium 143, Potassium 4.6, Chloride 121 H, Carbon Dioxide 15.0 L, Anion Gap 7, BUN 55 H, Creatinine 1.13 H, Estim Creat Clear Calc 35.70, Est GFR (MDRD) Af Amer 63, Est GFR (MDRD) Non-Af 52 L, BUN/Creatinine Ratio 48.7 H, Glucose 101, Calcium 6.9 L, Total Bilirubin 0.50, AST 89 H, ALT 39, Alkaline Phosphatase 84, Total Protein 4.3 L, Albumin 1.8 L, Globulin 2.5, Albumin/Globulin Ratio 0.7 L Current Medications Acetaminophen (Acetaminophen 325 Mg Tablet) 650 mg PO Q6H PRN PRN PRN Reason: Pain Score 1-10/Temp > 100.7 F Last Admin: 01/31/20 16:09 Dose: 650 mg Documented by: Al Hydroxide/Mg Hydroxide (Mag Hydrox/Al Hydrox/Simeth 30 Ml Udc) 30 ml PO Q6H PRN PRN PRN Reason: Gastric Burning Albuterol Sulfate (Albuterol 2.5 Mg/3 Ml Vial.Neb.) 2.5 mg INHALATION Q2H PRN PRN PRN Reason: Dyspnea, wheezing Albuterol/Ipratropium (Ipratropium/Albuterol Sulfate 3 Ml Ampul.Neb) 3 ml INHALATION Q6HWA.RT [facility] Last Admin: 01/31/20 07:46 Dose: 3 ml Documented by: Amlodipine Besylate (Amlodipine 5 Mg Tablet) 5 mg PO DAILY [facility] Last Admin: 02/01/20 11:09 Dose: 5 mg Documented by: Amoxicillin/Clavulanate Potassium (Amox/Clavulanate 875 Mg Tablet) 875 mg PO BID [facility] Stop: 02/03/20 22:01 Last Admin: 02/01/20 11:09 Dose: 875 mg Documented by: Cholecalciferol (Cholecalciferol (Vit D3) 1,000 Unit (25mcg)) 1,000 unit PO DAILY [facility] Last Admin: 02/01/20 11:09 Dose: 1,000 unit Documented by: Docusate Sodium (Docusate Sodium 100 Mg Capsule) 100 mg PO BID [facility] Last Admin: 02/01/20 11:09 Dose: Not Given Documented by: Furosemide (Furosemide 20 Mg/2 Ml Vial) 20 mg IV X1 PRN PRN Reason: fluid overload Last Admin: 01/30/20 19:15 Dose: 20 mg Documented by: Guaifenesin (Guaifenesin 10 Ml Udc (200mg/10ml)) 20 ml PO Q4H PRN PRN PRN Reason: COUGH Hydralazine HCl (Hydralazine 20 Mg/Ml Vial) 10 mg IV Q4H PRN PRN PRN Reason: SBP > 160 Sodium Chloride () 1,000 mls @ 125 mls/hr IV .Q8H [facility] Last Admin: 02/01/20 06:30 Dose: 125 mls/hr Documented by: Sodium Chloride () 500 mls @ 15 mls/hr IV PRN PRN PRN Reason: Blood Transfusion Sodium Chloride () 250 mls @ 15 mls/hr IV .[id number] PRN PRN Reason: Saline Flush Sodium Chloride () 250 mls @ 15 mls/hr IV .[id number] PRN PRN Reason: Additional IVPB Infusion Lamotrigine (Lamotrigine 100 Mg Tablet) 100 mg PO DAILY [facility] Last Admin: 02/01/20 11:09 Dose: 100 mg Documented by: Levothyroxine Sodium (Levothyroxine 25 Mcg Tablet) 25 mcg PO DAILY@0600 [facility] Last Admin: 02/01/20 06:29 Dose: 25 mcg Documented by: Lidocaine/Prilocaine (Lidocaine/Prilocaine Hcl 5 Gm Tube) 1 gm TOPICAL UD PRN PRN Reason: PORT ACCESS Magnesium Hydroxide (Magnesium Hydroxide 30 Ml Udc) 30 ml PO DAILY PRN PRN PRN Reason: Constipation Melatonin (Melatonin 3 Mg Tablet) 3 mg PO QHS PRN PRN PRN Reason: INSOMNIA Morphine Sulfate (Morphine 2 Mg/Ml Syringe) 2 mg IV Q3H PRN PRN PRN Reason: Pain Score 6-10 Nicotine (Nicotine 7 Mg Patch) 7 mg TRANSDERM. DAILY [facility] Last Admin: 02/01/20 11:09 Dose: 7 mg Documented by: Olanzapine (Olanzapine 10 Mg Tablet) 10 mg PO QHS [facility] Last Admin: 01/31/20 22:49 Dose: 10 mg Documented by: Ondansetron HCl (Ondansetron 4 Mg/2 Ml Vial) 4 mg IV Q8H PRN PRN PRN Reason: NAUSEA/VOMITING Last Admin: 01/31/20 10:34 Dose: 4 mg Documented by: Oxycodone HCl (Oxycodone 5 Mg Tablet) 5 mg PO Q4H PRN PRN PRN Reason: Pain Score 4-5 Last Admin: 02/01/20 11:09 Dose: 5 mg Documented by: Pantoprazole Sodium (Pantoprazole Sodium 20 Mg Tablet) 20 mg PO DAILY PRN PRN Reason: gastritis Prochlorperazine Edisylate (Prochlorperazine 10 Mg/2 Ml Vial) 5 mg IV Q4H PRN PRN PRN Reason: Breakthrough Nausea/Vomiting Last Admin: 01/31/20 10:40 Dose: 5 mg Documented by: Psyllium Hydrophilic Mucilloid (Psyllium 1 Packet) 1 packet PO DAILY PRN PRN PRN Reason: Constipation Sodium Chloride (0.9% Saline Lock 10 Ml Syringe) 10 - 40 ml IV UD PRN PRN Reason: SALINE FLUSH Last Admin: 01/31/20 22:48 Dose: 20 ml Documented by: Throat Lozenges (Benzocaine/Menthol 1 Lozenge) 1 lozenge MUCOUS MEM Q2H PRN PRN PRN Reason: SORE THROAT STROKE Vital Signs/Narrative: Vital Signs Temp Pulse Resp BP Pulse Ox 02/01/20 10:53 98.9 F 86 17 179/80 H 97 02/01/20 07:30 82 Medical Necessity - Tobacco Use Smoking Status: Current every day smoker - Patient with ongoing cigarette tobacco usage currently approximately 2 cigarettes daily but had been up to 1/2 pack/day since she been a teenager. Tobacco Use: Cigarettes Assessment/Plan All Active Problems Chemotherapy adverse reaction (Resolved) Epistaxis (Acute) Hemorrhage (Acute) Acute blood loss anemia (Acute) 1. Acute on chronic blood loss anemia secondary to epistaxis, chemotherapy, thrombocytopenia-hemoglobin improved, no further bleeding with Rhino Rocket in place. ENT following. Patient also received a 5 pack of platelets. Repeat CBC in the morning. 2. Ovarian epithelial cancer-undergoing chemotherapy chemotherapy, patient of . 3. CKD stage III - improved. 4. Hyperchloremia - provide gentle 0.45 ns recheck in AM. 5. COPD-no exacerbation-as needed albuterol, incentive spirometer. 6. Hypothyroidism-Synthroid 7. Hypertension-stable 8. Anxiety and depression-continue home meds 9. GERD-PPI 10. Severe protein calorie malnutrition-nutrition consult, supplements as directed DVT prophylaxis: SCDs-chemoprophylaxis contraindicated with thrombocytopenia and ongoing bleeding issues. This patient was seen by Iftikhar Shirley PA-C under the supervision of Doctor Kalina.
[2020-02-01] MEDS: 0.45% Normal Saline 1,000 ML 60 ML IV (14:50)
[2020-02-01] MEDS: OLANZapine 10 MG Tablet PO (21:24)
[2020-02-02] VITALS (14 sets, daily range): BP systolic 160–180; BP diastolic 72–89; PULSE 87–110; RESP 18–21; TEMP 36.4–37.2; O2SAT 94–98
[2020-02-02] MEDS: hydrALAZINE 20 MG/ML Vial 10 MG IV ×3 (03:45→13:32)
[2020-02-02] MEDS: Levothyroxine 25 MCG TABLET PO (05:10)
[2020-02-02 06:07] LABS: Absolute Lymphocyte Count 3.84 X10^3/uL (0.83-4.51); Absolute Neutrophil Count 5.1 X10^3/uL (2.0-7.7); Basophil# 0.08 X10^3/uL; Basophil% 0.7 % (0-1); Eosinophil# 0.09 X10^3/uL; Eosinophils% 0.8 % (0-5); Hematocrit 27.6 % (37-47); Hemoglobin 9.2 g/dL (12.0-15.0); Lymphocyte # 3.84 X10^3/ul (4.0); Lymphocyte % 35.2 % (19-41); Mean Corp Hgb Conc 33.3 g/dL (32-36); Mean Corpuscular Hgb 31.7 pg (27.0-32.0); Mean Corpuscular Volume 95.2 fL (81-99); Mean Platelet Vol. 11.4 fl (6.2-12.0); Monocyte# 1.65 X10^3/uL; Monocyte% 15.1 % (0-10); NRBC Flagged by Analyzer 3.8 % (0-5); Neutrophil % 46.7 % (47-70); POSITIVE DIFFERENTIAL YES; Platelet Count 161 K/mm3 (150-450); RBC Distribution Width CV 17.4 % (11.6-14.6); RBC Distribution Width SD 54.6 fl (35.1-43.9); White Blood Count 10.9 K/mm3 (4.4-11.0)
[2020-02-02 06:34] LABS: Differential Indicated SCAN CRITERIA MET
[2020-02-02 06:35] LABS: Differential Comment SCANNED
[2020-02-02 06:39] LABS: ALB/GLOB Ratio 0.7 RATIO (0.9-2.4); AST(SGOT) 61 U/L (15-37); Alanine Aminotransfer ALT/SGPT 35 U/L (13-56); Albumin, Serum 1.9 g/dL (3.2-5.0); Alkaline Phosphatase 97 U/L (45-117); Anion Gap 5 (5-15); BUN 25 mg/dL (7-18); BUN/Creat Ratio 26.1 RATIO (10-20); Calcium,Total 7.4 mg/dL (8.5-10.1); Chloride 114 mmol/L (98-107); Creatinine, Serum 0.96 mg/dL (0.55-1.02); EST Glomerular Filtration Rate 63 mL/min (>60); Est Glom Filt Rate - Afr Amer 77 mL/min (>60); Estimated Creatinine Clearance 42.02 ml/min; Globulin 2.6 g/dL (2.2-4.2); Glucose 90 mg/dL (74-106); Potassium 3.1 mmol/L (3.5-5.1); Protein, Total 4.5 g/dL (6.4-8.2); Sodium Level 140 mmol/L (136-145)
[2020-02-02] MEDS: 0.45% Normal Saline 1,000 ML 60 ML IV (08:47)
[2020-02-02] MEDS: 0.9% Saline Lock 10 ML Syringe IV ×3 (08:55→15:04)
[2020-02-02] MEDS: Acetaminophen 325 MG Tablet 650 MG PO (08:55)
[2020-02-02] MEDS: oxyCODONE 5 MG Tablet PO (08:55)
--- NOTE | 2020-02-02 09:15 | EKG12_ITS ---
Test Reason : Blood Pressure : / mmHG Vent. Rate : 107 BPM Atrial Rate : 107 BPM P-R Int : 154 ms QRS Dur : 104 ms QT Int : 354 ms P-R-T Axes : 090 092 061 degrees QTc Int : 472 ms Suspect arm lead reversal, interpretation assumes no reversal Sinus tachycardia Otherwise normal ECG When compared with ECG of 01-FEB-2020 07:52, MANUAL COMPARISON REQUIRED, DATA IS UNCONFIRMED Confirmed by NILAY RUBIO, LUARA ([id number]), city editor BERNADETTE EAGLE ([id number]) on 02/09/2020 9:34:30 A M Referred By: KARLENE Confirmed By:ARTHUR PEMBERTON MD
[2020-02-02 09:21] LABS: Magnesium 1.6 mg/dL (1.6-2.6); Phosphorus 2.5 mg/dL (2.5-4.9)
[2020-02-02] MEDS: Docusate Sodium 100 MG Capsule PO (10:02)
[2020-02-02] MEDS: lamoTRIgine 100 MG Tablet PO (10:02)
[2020-02-02] MEDS: Amox/Clavulanate 875 MG Tablet PO (10:03)
[2020-02-02] MEDS: amLODIPine 10 MG Tablet PO (10:08)
--- NOTE | 2020-02-02 11:21 | DCINST_ITS ---
- Discharge Diagnoses Current Active Problems: Current Active and Chronic Problems Ovarian epithelial cancer (Chronic) Bilateral ovarian cancer (BRCA1 & BRCA2 negative) Bipolar disorder (manic depression) (Chronic) Epistaxis (Acute) Hemorrhage (Acute) Acute blood loss anemia (Acute) Severe protein-calorie malnutrition (Chronic) Tobacco use disorder (Chronic) You will use the following diet at home:: Cardiac Your food should be the consistency of: Regular Your liquids should be the consistency of: Regular/Thin Discharge Activity: Return to Normal Activity Allergies/Adverse Reactions: Allergies erythromycin base [Erythromycin Base] Allergy (Verified 01/30/20 08:30) Hives Medications to take at Discharge Lamotrigine [Lamictal] 100 mg PO DAILY 05/23/17 Ondansetron [Zofran] 8 mg PO Q8H PRN PRN 05/23/17 Albuterol Inhaler [Ventolin Hfa] 2 puff INHALATION Q6H PRN PRN 05/30/17 Cholecalciferol (Vitamin D3) [Vitamin D3] 1,000 unit PO DAILY 05/30/17 Docusate Sodium [Colace] 100 mg PO BID 05/30/17 Lidocaine/Prilocaine [Lidocaine-Prilocaine Cream] 1 applic TOPICAL UD PRN 05/30/17 Pantoprazole Sodium [Protonix] 20 mg PO DAILY PRN 05/30/17 Levothyroxine [Synthroid] 25 mcg PO DAILY 07/30/18 Oxycodone HCl/Acetaminophen [Percocet 5-325] 1 tablet PO DAILY PRN 07/30/18 Prochlorperazine Maleate [Compazine] 10 mg PO Q6H PRN PRN 07/30/18 Acetaminophen [Pain Relief] 650 mg PO Q4H PRN PRN 12/17/19 Olanzapine 10 mg PO QHS 12/17/19 Acetaminophen [Tylenol Tablet] 650 mg PO Q6H PRN PRN tablet 02/02/20 Amlodipine [Norvasc] 10 mg PO DAILY #30 tab 02/02/20 Amox/Clavulanate Tablet [Augmentin Tablet] 875 mg PO BID #11 tab 02/02/20 Metoprolol Tartrate 12.5 mg PO BID #30 tab 02/02/20 The following prescriptions were given: Amox/Clavulanate Tablet [Augmentin Tablet] 875 mg PO BID #11 tab Transmission Status: Pending to [facility] #30 Metoprolol Tartrate 12.5 mg PO BID #30 tab Transmission Status: Pending to [facility] Amlodipine [Norvasc] 10 mg PO DAILY #30 tab Transmission Status: Pending to [facility] #30 Primary Care Physician: Edison Roa III, MD [Primary Care Provider] - Please follow up with your Primary Care Physician in: 1-2 weeks Test Results: Test results from this visit will be discussed in further detail at your follow- up appointment, if applicable. Please Follow Up With: Jaciel Morfin MD When: as directed Please Follow Up With: Dr. Lopez When: Leyda Proposed Discharge Date: 02/02/20
[2020-02-02 11:34] LABS: Pathologist Review Reviewed
--- NOTE | 2020-02-02 11:54 | CASEMGMT ---
[facility]AN [facility] assessment: Face to Face with patient for initial transition planning/care coordination assessment. LAN ONE[facility] introduced self and role at [facility], pt voices understanding and consents to assessment at this time. Pt is lying in bed in no distress at this time. Pt is A/Ox4 at this time and answers all questions appropriately at this time. Care providers, pharmacy, and demographics verified/updated at this time. Presentation: Nosebleed Admitting dx: Acute blood loss anemia, epistaxis PCP: Janina DREW Specialists: [facility] onc-pt states is currently receiving chemo for ovarian cancer Preferred Pharmacy: [facility] Insurance: [employer] A/B, [employer] Prescription Benefit: Yes Living Will/HPOA: Pt has LW on file and is aware at this time. Pt states she also has HPOA and is aware that it's not on file at [facility] at this time. Pt states her son, Twin Goodman, is HPOA. LNOK: Twin Goodman, son/HPOA; Darleen Goodman, daughter Living Arrangements: Pt states lives alone in 1 story home with laundry in basement and states no concerns at home at this time. Pt states is independent with ADL's. Transportation: Pt states drives self and states no transportation concerns at this time. DME/HHC: Pt states no current DME or need for any at this time. Pt states no hx of HHC or SNF in the past. Pt states no concerns with going home at time of discharge. Pt is disabled. Pt states smokes 2-3 cigarettes daily and states does not drink ETOH. Pt states no further concerns/needs at this time. CM to follow for any further discharge planning/needs. Advised pt to ask for CM if any further questions/concerns/needs arise, voices understanding. Pt Goal: Home Plan[place]
--- NOTE | 2020-02-02 14:08 | PCM.DC.SUM ---
<Iftikhar Shirley - Last Filed: 02/02/20 14:08> Discharge Date and Diagnosis - Problem List Patient Problems: Active and Suspected Problems Epistaxis (Acute) Hemorrhage (Acute) Acute blood loss anemia (Acute) Date of Admission: 01/30/20 Date of Discharge: 02/02/20 - Primary Discharge Diagnosis Acute Problems: Active Problems Acute blood loss anemia secondary to epistaxis, chemotherapy, thrombocytopenia Thrombocytopenia complicating above Hypokalemia, hyperchloremia Ovarian epithelial cancer - Secondary Discharge Diagnosis Chronic Problems: Chronic Problems Ovarian epithelial cancer (Chronic) Bilateral ovarian cancer (BRCA1 & BRCA2 negative) Bipolar disorder (manic depression) (Chronic) Severe protein-calorie malnutrition (Chronic) Tobacco use disorder (Chronic) Intra-abdominal & Pelvic Swelling, Mass, & Lump (Chronic) History of acute cystitis (Chronic) History of abdominal pain (Chronic) Hospital Course and Treatment Imaging Results: RAD/Chest 1 View (Portable) IMPRESSION: No focal patchy airspace opacities or pleural effusions. Stable right lung base small nodule/granuloma Left-sided Mediport catheter COPD/emphysema Operations: - - endoscopy control of left nasal hemorrhage 01/30/20 Procedures: - - rhinorocket Summary of Care Provided: Hospital Course: The patient is a 59 year old F past medical history significant for ovarian epithelial cancer undergoing chemotherapy per who presented to the emergency room with nosebleed. Hemoglobin was 7.4, platelets were low at 142. Her aspirin and naproxen were discontinued. She was taken to the OR by ENT Dr. Lopez for endoscopic control which was achieved. She Later developed more bleeding and a rhino rocket was placed. She was transfused with 5 units of PRBC and 1 pack of platelets during her stay. This is further complicated by hemoccult positive blood. She was monitored further overnight for bleeding. Hgb remained stable and no bleeding with rhino rocket in place. Dr. Lopez advised follow up in the office on for rhino rocket removal. He advised treatment with augmentin. She was discharged home in stable condition. She will also need follow up with her PCP in 1-[address] Morfin as directed to resume cancer treatment. This patient was seen by Iftikhar Shirley PA-C under the supervision of Dr. Dougherty. [] Patient Problems: Active and Suspected Problems Epistaxis (Acute) Hemorrhage (Acute) Acute blood loss anemia (Acute) - Physical Exam Vitals/I&O's: Vital Signs Temp Pulse Resp BP Pulse Ox 97.5 F L 97 20 H 171/89 H 97 02/02/20 13:28 02/02/20 13:32 02/02/20 13:28 02/02/20 13:32 02/02/20 13:28 Oxygen Flow Rate (L/min) 2 Oxygen Delivery Method Room Air Weight: 92 lb 15.997 oz Body Mass Index (BMI) 16.0 Intake and Output for Last 24 Hours 01/31/20 02/01/20 02/02/20 23:59 23:59 23:59 Intake Total 3483.33 / 3483.33 3080 / 3080 1120 / 1120 Output Total 250 / 250 Balance 3233.33 / 3233.33 3080 / 3080 1120 / 1120 General: Alert, Oriented x3, Cooperative HEENT: Atraumatic, PERRLA, EOMI, Normocephalic, - - rhino rocket left nare Neck: Supple, No JVD, Negative Carotid Bruits Lungs: Clear to auscultation, Normal air movement Cardiovascular: Regular rate, No murmurs Abdomen: Bowel Sounds Present, Soft, Non Tender Extremities: No edema, Capillary Refill Less than 3 Seconds Skin: No rashes, No breakdown Musculoskeletal: No Tenderness to Palpation of Joints or Extremities Neurological: Cranial nerves II-XII grossly intact Psych/Mental Status: Normal Affect, Appropriate, Alert and oriented to time, place, person, mood and affect Microbiology Past 72 Hours 01/30/20 13:10 Stool Stool Occult Blood (WENDY) - Final Occult Blood Positive Laboratory Results 02/01/20 06:15: Diff Path Review Reviewed 02/02/20 05:08: WBC 10.9, RBC 2.90 L, Hgb 9.2 L, Hct 27.6 L, MCV 95.2, MCH 31.7, MCHC 33.3, RDW Std Deviation 54.6 H, RDW Coeff of Aracely 17.4 H, Plt Count 161, MPV 11.4, Immature Gran % (Auto) 1.500 H, Neut % (Auto) 46.7 L, Lymph % (Auto) 35.2, Calhoun % (Auto) 15.1 H, Eos % (Auto) 0.8, Baso % (Auto) 0.7, Absolute Neuts (auto) 5.1, Absolute Lymphs (auto) 3.84, Nucleated RBC % 3.8, Differential Comment SCANNED 02/02/20 05:08: Sodium 140, Potassium 3.1 L, Chloride 114 H, Carbon Dioxide 21.0, Anion Gap 5, BUN 25 H, Creatinine 0.96, Estim Creat Clear Calc 42.02, Est GFR (MDRD) Af Amer 77, Est GFR (MDRD) Non-Af 63, BUN/Creatinine Ratio 26.1 H, Glucose 90, Calcium 7.4 L, Total Bilirubin 0.80, AST 61 H, ALT 35, Alkaline Phosphatase 97, Total Protein 4.5 L, Albumin 1.9 L, Globulin 2.6, Albumin/Globulin Ratio 0.7 L 02/02/20 05:08: Phosphorus 2.5, Magnesium 1.6 Current Medications Acetaminophen (Acetaminophen 325 Mg Tablet) 650 mg PO Q6H PRN PRN PRN Reason: Pain Score 1-10/Temp > 100.7 F Last Admin: 02/02/20 08:55 Dose: 650 mg Documented by: Al Hydroxide/Mg Hydroxide (Mag Hydrox/Al Hydrox/Simeth 30 Ml Udc) 30 ml PO Q6H PRN PRN PRN Reason: Gastric Burning Albuterol Sulfate (Albuterol 2.5 Mg/3 Ml Vial.Neb.) 2.5 mg INHALATION Q2H PRN PRN PRN Reason: Dyspnea, wheezing Albuterol/Ipratropium (Ipratropium/Albuterol Sulfate 3 Ml Ampul.Neb) 3 ml INHALATION Q6HWA.RT [facility] Last Admin: 01/31/20 07:46 Dose: 3 ml Documented by: Amlodipine Besylate (Amlodipine 10 Mg Tablet) 10 mg PO DAILY [facility] Last Admin: 02/02/20 10:08 Dose: 10 mg Documented by: Amoxicillin/Clavulanate Potassium (Amox/Clavulanate 875 Mg Tablet) 875 mg PO BID [facility] Stop: 02/03/20 22:01 Last Admin: 02/02/20 10:03 Dose: 875 mg Documented by: Cholecalciferol (Cholecalciferol (Vit D3) 1,000 Unit (25mcg)) 1,000 unit PO DAILY [facility] Last Admin: 02/02/20 10:02 Dose: 1,000 unit Documented by: Docusate Sodium (Docusate Sodium 100 Mg Capsule) 100 mg PO BID [facility] Last Admin: 02/02/20 10:02 Dose: 100 mg Documented by: Furosemide (Furosemide 20 Mg/2 Ml Vial) 20 mg IV X1 PRN PRN Reason: fluid overload Last Admin: 01/30/20 19:15 Dose: 20 mg Documented by: Guaifenesin (Guaifenesin 10 Ml Udc (200mg/10ml)) 20 ml PO Q4H PRN PRN PRN Reason: COUGH Heparin Sodium (Beef Lung) (Heparin Pf Lock 10 Units/Ml 50 Units/5 Ml Syringe) 50 units IV UD PRN PRN Reason: Port-a-Cath (VAD)Heparin Flush Hydralazine HCl (Hydralazine 20 Mg/Ml Vial) 10 mg IV Q4H PRN PRN PRN Reason: SBP > 160 Last Admin: 02/02/20 13:32 Dose: 10 mg Documented by: Sodium Chloride () 500 mls @ 15 mls/hr IV PRN PRN PRN Reason: Blood Transfusion Sodium Chloride () 250 mls @ 15 mls/hr IV .[id number] PRN PRN Reason: Saline Flush Sodium Chloride () 250 mls @ 15 mls/hr IV .[id number] PRN PRN Reason: Additional IVPB Infusion Sodium Chloride () 1,000 mls @ 60 mls/hr IV .[id number] [facility] Last Admin: 02/02/20 08:47 Dose: 60 mls/hr Documented by: Lamotrigine (Lamotrigine 100 Mg Tablet) 100 mg PO DAILY [facility] Last Admin: 02/02/20 10:02 Dose: 100 mg Documented by: Levothyroxine Sodium (Levothyroxine 25 Mcg Tablet) 25 mcg PO DAILY@0600 [facility] Last Admin: 02/02/20 05:10 Dose: 25 mcg Documented by: Lidocaine/Prilocaine (Lidocaine/Prilocaine Hcl 5 Gm Tube) 1 gm TOPICAL UD PRN PRN Reason: PORT ACCESS Magnesium Hydroxide (Magnesium Hydroxide 30 Ml Udc) 30 ml PO DAILY PRN PRN PRN Reason: Constipation Melatonin (Melatonin 3 Mg Tablet) 3 mg PO QHS PRN PRN PRN Reason: INSOMNIA Nicotine (Nicotine 7 Mg Patch) 7 mg TRANSDERM. DAILY [facility] Last Admin: 02/02/20 10:04 Dose: 7 mg Documented by: Olanzapine (Olanzapine 10 Mg Tablet) 10 mg PO QHS [facility] Last Admin: 02/01/20 21:24 Dose: 10 mg Documented by: Ondansetron HCl (Ondansetron 4 Mg/2 Ml Vial) 4 mg IV Q8H PRN PRN PRN Reason: NAUSEA/VOMITING Last Admin: 01/31/20 10:34 Dose: 4 mg Documented by: Oxycodone HCl (Oxycodone 5 Mg Tablet) 5 mg PO Q4H PRN PRN PRN Reason: Pain Score 4-5 Last Admin: 02/02/20 08:55 Dose: 5 mg Documented by: Pantoprazole Sodium (Pantoprazole Sodium 20 Mg Tablet) 20 mg PO DAILY PRN PRN Reason: gastritis Prochlorperazine Edisylate (Prochlorperazine 10 Mg/2 Ml Vial) 5 mg IV Q4H PRN PRN PRN Reason: Breakthrough Nausea/Vomiting Last Admin: 01/31/20 10:40 Dose: 5 mg Documented by: Psyllium Hydrophilic Mucilloid (Psyllium 1 Packet) 1 packet PO DAILY PRN PRN PRN Reason: Constipation Sodium Chloride (0.9% Saline Lock 10 Ml Syringe) 10 - 40 ml IV UD PRN PRN Reason: SALINE FLUSH Last Admin: 02/02/20 13:32 Dose: 10 ml Documented by: Sodium Chloride (0.9 % Nacl (Sterile) Posiflush 10 Ml) 10 - 40 ml IV UD PRN PRN Reason: Port access or dressing change Throat Lozenges (Benzocaine/Menthol 1 Lozenge) 1 lozenge MUCOUS MEM Q2H PRN PRN PRN Reason: SORE THROAT Discharge Diet: Low fat/ Low Cholesterol, 2000 mg Sodium Diet Discharge Activity: Return to Normal Activity Home Medications: Medications to take at Discharge Lamotrigine [Lamictal] 100 mg PO DAILY 05/23/17 Ondansetron [Zofran] 8 mg PO Q8H PRN PRN 05/23/17 Albuterol Inhaler [Ventolin Hfa] 2 puff INHALATION Q6H PRN PRN 05/30/17 Cholecalciferol (Vitamin D3) [Vitamin D3] 1,000 unit PO DAILY 05/30/17 Docusate Sodium [Colace] 100 mg PO BID 05/30/17 Lidocaine/Prilocaine [Lidocaine-Prilocaine Cream] 1 applic TOPICAL UD PRN 05/30/17 Pantoprazole Sodium [Protonix] 20 mg PO DAILY PRN 05/30/17 Levothyroxine [Synthroid] 25 mcg PO DAILY 07/30/18 Oxycodone HCl/Acetaminophen [Percocet 5-325] 1 tablet PO DAILY PRN 07/30/18 Prochlorperazine Maleate [Compazine] 10 mg PO Q6H PRN PRN 07/30/18 Acetaminophen [Pain Relief] 650 mg PO Q4H PRN PRN 12/17/19 Olanzapine 10 mg PO QHS 12/17/19 Acetaminophen [Tylenol Tablet] 650 mg PO Q6H PRN PRN tab 02/02/20 Amlodipine [Norvasc] 10 mg PO DAILY #30 tab 02/02/20 Amox/Clavulanate Tablet [Augmentin Tablet] 875 mg PO BID #11 tab 02/02/20 Metoprolol Tartrate 12.5 mg PO BID #30 tab 02/02/20 Following Prescriptions Were Given to Patient: Amox/Clavulanate Tablet [Augmentin Tablet] 875 mg PO BID #11 tab Transmission Status: Received by [facility] Metoprolol Tartrate 12.5 mg PO BID #30 tab Transmission Status: Received by [facility] Amlodipine [Norvasc] 10 mg PO DAILY #30 tab Transmission Status: Received by [facility] Primary Care Physician: Edison Roa III, MD [Primary Care Provider] - Please follow up with your Primary Care Physician in: 1-2 weeks Please Follow Up With: Jaciel Morfin MD When: as directed Please Follow Up With: Dr. Lopez When: Leyda Disposition: Home Minutes spent on discharge:: 35 Patient Condition:: Stable Medical Necessity - Tobacco Use Smoking Status: Current every day smoker - Patient with ongoing cigarette tobacco usage currently approximately 2 cigarettes daily but had been up to 1/2 pack/day since she been a teenager. Tobacco Use: Cigarettes Meaningful Use Info Meaningful Use Diagnoses (Choose all that apply): None applicable <Silver Dougherty - Last Filed: 02/02/20 16:14> Discharge Date and Diagnosis - Primary Discharge Diagnosis Acute Problems: Active Problems Epistaxis (Acute) Hemorrhage (Acute) Acute blood loss anemia (Acute) - Secondary Discharge Diagnosis Chronic Problems: Chronic Problems Ovarian epithelial cancer (Chronic) Bilateral ovarian cancer (BRCA1 & BRCA2 negative) Bipolar disorder (manic depression) (Chronic) Severe protein-calorie malnutrition (Chronic) Tobacco use disorder (Chronic) Intra-abdominal & Pelvic Swelling, Mass, & Lump (Chronic) History of acute cystitis (Chronic) History of abdominal pain (Chronic) Hospital Course and Treatment Summary of Care Provided: This patient was seen in conjunction with Iftikhar MANDUJANO. I have independently interviewed and examined the patient and reviewed pertinent history, examination findings, laboratory and plan of management. I have reviewed the note and agree with the documented findings with the few additional points. In brief, patient is admitted for severe epistaxis and hemoglobin was 7.4 with thrombocytopenia 97,000 and most likely qualitative abnormal platelets as she continued to have bleeding even after cauterization. She required Rhino Rocket by Dr. Lopez. Had 5 units of PRBC transfusion and platelet transfusion. Stool for Hemoccult positive. Dr. Lopez advised to discharge with Rhino Rocket and follow-up on for removal. On Augmentin. Of note, she also has history of ovarian cancer which is being managed by Dr. Stinson. Her last chemo was about 3 weeks ago. I have discussed my assessment with Iftikhar MANDUJANO and orders have been reviewed. [] Objective: Patient heart rate and blood pressure is controlled. Has Rhinocort placed by ENT Dr. Lopez after cauterization did not stop the bleeding. Patient has severe thrombocytopenia and required platelet transfusion. Physical exam General: Alert, Oriented x3, Cooperative HEENT: Atraumatic, PERRLA, EOMI, Normocephalic. Mild facial swelling. Rhinocort Oral: No Gingival or Mucosal Lesions/ Ulcerations Neck: Supple, No JVD, Negative Carotid Bruits Lungs: Air entry diminished in bilateral lung bases. No crepitation/rhonchi Cardiovascular: Regular rate, Regular Rhythm, Normal S1, Normal S2, No murmurs Abdomen: Bowel Sounds Present, Soft, Non Tender, Non-Distended : No renal angle tenderness. No suprapubic tenderness. Extremities: No edema, Capillary Refill Less than 3 Seconds Skin: No rashes, No breakdown Musculoskeletal: No Tenderness to Palpation of Joints or Extremities Neurological: Cranial nerves II-XII grossly intact, Deep Tendon Reflexes 2+/4 and Symmetrical, Neuro grossly intact Psych/Mental Status: Normal Affect, Appropriate. - Physical Exam Vitals/I&O's: Vital Signs Temp Pulse Resp BP Pulse Ox 97.7 F L 95 20 H 160/72 H 97 02/02/20 15:23 02/02/20 15:23 02/02/20 15:23 02/02/20 15:23 02/02/20 15:23 Oxygen Flow Rate (L/min) 2 Oxygen Delivery Method Room Air Weight: 92 lb 15.997 oz Body Mass Index (BMI) 16.0 Intake and Output for Last 24 Hours 01/31/20 02/01/20 02/02/20 23:59 23:59 23:59 Intake Total 3483.33 / 3483.33 3080 / 3080 1796 / 1796 Output Total 250 / 250 Balance 3233.33 / 3233.33 3080 / 3080 1796 / 1796 Microbiology Past 72 Hours 01/30/20 13:10 Stool Stool Occult Blood (WENDY) - Final Occult Blood Positive Laboratory Results 02/01/20 06:15: Diff Path Review Reviewed 02/02/20 05:08: WBC 10.9, RBC 2.90 L, Hgb 9.2 L, Hct 27.6 L, MCV 95.2, MCH 31.7, MCHC 33.3, RDW Std Deviation 54.6 H, RDW Coeff of Aracely 17.4 H, Plt Count 161, MPV 11.4, Immature Gran % (Auto) 1.500 H, Neut % (Auto) 46.7 L, Lymph % (Auto) 35.2, Calhoun % (Auto) 15.1 H, Eos % (Auto) 0.8, Baso % (Auto) 0.7, Absolute Neuts (auto) 5.1, Absolute Lymphs (auto) 3.84, Nucleated RBC % 3.8, Differential Comment SCANNED 02/02/20 05:08: Sodium 140, Potassium 3.1 L, Chloride 114 H, Carbon Dioxide 21.0, Anion Gap 5, BUN 25 H, Creatinine 0.96, Estim Creat Clear Calc 42.02, Est GFR (MDRD) Af Amer 77, Est GFR (MDRD) Non-Af 63, BUN/Creatinine Ratio 26.1 H, Glucose 90, Calcium 7.4 L, Total Bilirubin 0.80, AST 61 H, ALT 35, Alkaline Phosphatase 97, Total Protein 4.5 L, Albumin 1.9 L, Globulin 2.6, Albumin/Globulin Ratio 0.7 L 02/02/20 05:08: Phosphorus 2.5, Magnesium 1.6 Current Medications Acetaminophen (Acetaminophen 325 Mg Tablet) 650 mg PO Q6H PRN PRN PRN Reason: Pain Score 1-10/Temp > 100.7 F Last Admin: 02/02/20 08:55 Dose: 650 mg Documented by: Al Hydroxide/Mg Hydroxide (Mag Hydrox/Al Hydrox/Simeth 30 Ml Udc) 30 ml PO Q6H PRN PRN PRN Reason: Gastric Burning Albuterol Sulfate (Albuterol 2.5 Mg/3 Ml Vial.Neb.) 2.5 mg INHALATION Q2H PRN PRN PRN Reason: Dyspnea, wheezing Albuterol/Ipratropium (Ipratropium/Albuterol Sulfate 3 Ml Ampul.Neb) 3 ml INHALATION Q6HWA.RT [facility] Last Admin: 01/31/20 07:46 Dose: 3 ml Documented by: Amlodipine Besylate (Amlodipine 10 Mg Tablet) 10 mg PO DAILY [facility] Last Admin: 02/02/20 10:08 Dose: 10 mg Documented by: Amoxicillin/Clavulanate Potassium (Amox/Clavulanate 875 Mg Tablet) 875 mg PO BID [facility] Stop: 02/03/20 22:01 Last Admin: 02/02/20 10:03 Dose: 875 mg Documented by: Cholecalciferol (Cholecalciferol (Vit D3) 1,000 Unit (25mcg)) 1,000 unit PO DAILY [facility] Last Admin: 02/02/20 10:02 Dose: 1,000 unit Documented by: Docusate Sodium (Docusate Sodium 100 Mg Capsule) 100 mg PO BID [facility] Last Admin: 02/02/20 10:02 Dose: 100 mg Documented by: Furosemide (Furosemide 20 Mg/2 Ml Vial) 20 mg IV X1 PRN PRN Reason: fluid overload Last Admin: 01/30/20 19:15 Dose: 20 mg Documented by: Guaifenesin (Guaifenesin 10 Ml Udc (200mg/10ml)) 20 ml PO Q4H PRN PRN PRN Reason: COUGH Heparin Sodium (Beef Lung) (Heparin Pf Lock 10 Units/Ml 50 Units/5 Ml Syringe) 50 units IV UD PRN PRN Reason: Port-a-Cath (VAD)Heparin Flush Last Admin: 02/02/20 15:04 Dose: 50 units Documented by: Hydralazine HCl (Hydralazine 20 Mg/Ml Vial) 10 mg IV Q4H PRN PRN PRN Reason: SBP > 160 Last Admin: 02/02/20 13:32 Dose: 10 mg Documented by: Sodium Chloride () 500 mls @ 15 mls/hr IV PRN PRN PRN Reason: Blood Transfusion Sodium Chloride () 250 mls @ 15 mls/hr IV .[id number] PRN PRN Reason: Saline Flush Sodium Chloride () 250 mls @ 15 mls/hr IV .[id number] PRN PRN Reason: Additional IVPB Infusion Sodium Chloride () 1,000 mls @ 60 mls/hr IV .[id number] [facility] Last Infusion: 02/02/20 15:03 Dose: Infused Documented by: Lamotrigine (Lamotrigine 100 Mg Tablet) 100 mg PO DAILY [facility] Last Admin: 02/02/20 10:02 Dose: 100 mg Documented by: Levothyroxine Sodium (Levothyroxine 25 Mcg Tablet) 25 mcg PO DAILY@0600 [facility] Last Admin: 02/02/20 05:10 Dose: 25 mcg Documented by: Lidocaine/Prilocaine (Lidocaine/Prilocaine Hcl 5 Gm Tube) 1 gm TOPICAL UD PRN PRN Reason: PORT ACCESS Magnesium Chloride (Magnesium Chloride 64 Mg Delay Rel.Tablet) 128 mg PO X1 ONE Stop: 02/03/20 14:31 Last Admin: 02/02/20 15:19 Dose: 128 mg Documented by: Magnesium Hydroxide (Magnesium Hydroxide 30 Ml Udc) 30 ml PO DAILY PRN PRN PRN Reason: Constipation Melatonin (Melatonin 3 Mg Tablet) 3 mg PO QHS PRN PRN PRN Reason: INSOMNIA Nicotine (Nicotine 7 Mg Patch) 7 mg TRANSDERM. DAILY [facility] Last Admin: 02/02/20 10:04 Dose: 7 mg Documented by: Olanzapine (Olanzapine 10 Mg Tablet) 10 mg PO QHS [facility] Last Admin: 02/01/20 21:24 Dose: 10 mg Documented by: Ondansetron HCl (Ondansetron 4 Mg/2 Ml Vial) 4 mg IV Q8H PRN PRN PRN Reason: NAUSEA/VOMITING Last Admin: 01/31/20 10:34 Dose: 4 mg Documented by: Oxycodone HCl (Oxycodone 5 Mg Tablet) 5 mg PO Q4H PRN PRN PRN Reason: Pain Score 4-5 Last Admin: 02/02/20 08:55 Dose: 5 mg Documented by: Pantoprazole Sodium (Pantoprazole Sodium 20 Mg Tablet) 20 mg PO DAILY PRN PRN Reason: gastritis Prochlorperazine Edisylate (Prochlorperazine 10 Mg/2 Ml Vial) 5 mg IV Q4H PRN PRN PRN Reason: Breakthrough Nausea/Vomiting Last Admin: 01/31/20 10:40 Dose: 5 mg Documented by: Psyllium Hydrophilic Mucilloid (Psyllium 1 Packet) 1 packet PO DAILY PRN PRN PRN Reason: Constipation Sodium Chloride (0.9% Saline Lock 10 Ml Syringe) 10 - 40 ml IV UD PRN PRN Reason: SALINE FLUSH Last Admin: 02/02/20 15:04 Dose: 40 ml Documented by: Sodium Chloride (0.9 % Nacl (Sterile) Posiflush 10 Ml) 10 - 40 ml IV UD PRN PRN Reason: Port access or dressing change Throat Lozenges (Benzocaine/Menthol 1 Lozenge) 1 lozenge MUCOUS MEM Q2H PRN PRN PRN Reason: SORE THROAT Inpatient E&M: 67351 Disch Hosp
[2020-02-02] MEDS: Magnesium Chloride 64 MG Delay Rel.Tablet 128 MG PO (15:19)
--- NOTE | 2020-02-03 15:07 | CASEMGMT ---
[facility]AN [facility] Discharge Follow-up Phone Call: SUSAN: Steven Strata: 3 Call Date: 02/03/20 Discharge Date: 02/02/20 Time of Call: 1505 Duration: 1 min Admitting Diagnosis: Acute blood loss anemia, epistaxis [facility] attempted to complete follow-up phone call after recent hospitalization. No answer, voice message left with return contact information.
== END 2020-02-02 16:10 | disposition home or self-care (01) | DRG 811 ==
LOC: ED 10:24 → PCU 11:18
PROVIDERS: Otolaryngology; Physician Assistant; Admitting Provider Family Medicine; Emergency Provider Emergency Medicine; PCP Family Medicine; Visit Provider Internal Medicine
PROC: 093K8ZZ Control Bleeding in Nasal Mucosa and Soft Tissue, Via Natural or Artificial Opening Endoscopic (ICD-10-PCS; principal; 2020-01-30 15:00)
DX: D62 Acute posthemorrhagic anemia (principal); E43 Unspecified severe protein-calorie malnutrition; C56.2 Malignant neoplasm of left ovary; C56.1 Malignant neoplasm of right ovary; Z68.1 Body mass index [BMI] 19.9 or less, adult; F31.30 Bipolar disorder, current episode depressed, mild or moderate severity, unspecified; R04.0 Epistaxis; D64.81 Anemia due to antineoplastic chemotherapy; T45.1X5A Adverse effect of antineoplastic and immunosuppressive drugs, initial encounter; Y92.9 Unspecified place or not applicable; I95.9 Hypotension, unspecified; E87.6 Hypokalemia; E87.8 Other disorders of electrolyte and fluid balance, not elsewhere classified; D69.6 Thrombocytopenia, unspecified; Z79.899 Other long term (current) drug therapy; Z87.19 Personal history of other diseases of the digestive system; F17.210 Nicotine dependence, cigarettes, uncomplicated; F41.9 Anxiety disorder, unspecified; I12.9 Hypertensive chronic kidney disease with stage 1 through stage 4 chronic kidney disease, or unspecified chronic kidney disease; N18.30 Chronic kidney disease, stage 3 unspecified; J44.9 Chronic obstructive pulmonary disease, unspecified; K21.9 Gastro-esophageal reflux disease without esophagitis; E03.9 Hypothyroidism, unspecified; Z79.82 Long term (current) use of aspirin; Z90.722 Acquired absence of ovaries, bilateral; Z90.710 Acquired absence of both cervix and uterus; Z87.440 Personal history of urinary (tract) infections
CPT/HCPCS: 36415; 71045; 80048; 80053; 81001; 82274; 82607; 82746; 83735; 84100; 85014; 85018; 85025; 85610; 86644; 86850; 86900; 86901; 86920; 86965; 93005; 94640; 99285; J7030; J7040; J7120; P9016; P9035; A4216; J0610; J1940; J2405

== ENCOUNTER → 2020-02-11 12:52 | Outpatient (CLI) | payer MEDICARE, SELFPAY ==
[2020-01-30 11:22] VITALS: BMI 16.0
--- NOTE | 2020-02-11 | IMM_PTH ---
PATIENT: SOFIA COREA LOC: [facility]#:[id number] AGE/SX: 64/F ROOM: RE02/11/[address]: Dr. Jaciel Morfin MD : 1960 BED: DIS: SPEC #: [id number] RECD: 02/17/20 12:34 STATUS: SANGITA REQ #: [id number] EYIMI: 02/11/20 00:[address]: Jaciel Morfin DEPT: IMMUNOHISTOCHEMISTRY RECD BY: Domitila Alegre ENTERED: 02/17/20 12:36 SP TYPE: IMMUNO OTHR DR: Dr. Edison Roa III, MD Tissues: PARACENTESIS FLUID Procedures: RCC (add) CA-125 (add) Leander Ret (add) CK5-6 (add) CK7 (add) CK8 (add) MACRO (add) ME (add) TTF1 (add) Vimentin (add) Pankeratin (add) P40 (add) ER (initial) PHYSICIAN & [address] [address] SPECIMEN INFORMATION: Tissue Source: Paracentesis fluid Clinical Info: Ascites, bilateral ovarian CA Specimen Number: [id number] CPT code: 75772, 27943 x13 METHODOLOGY: Deparaffinized sections of prefer/formalin-fixed tissue or PAP/DQ stained slides are incubated with monoclonal/polyclonal antibodies/oligonucleotide probes. Localization is made via biotin free immunoperoxidase method. Appropriate controls are performed and reacted as expected. Results on target cell population are indicated in the following table: RESULTS: ANTIBODY / CLONE RESULT ER (6F11) negative ME (1E2) negative AE1-3 (AE1/AE3/PCK26) negative CK7 (OV-TL12/30) negative CK8 (06yqllF62) positive CK20 (KS20.8) negative Vimentin (V9) negative Macro (HAM-56) negative TTF-1 (8G7G3/1) negative RCC (PN-15) negative CALRET (polyclonal) positive CK5-6 (D5 & 1684) negative * P40 (BC28) negative CA125 (OC125) positive These tests were developed and their performance characteristics determined by [facility]. They may not have been cleared or approved by the U.S. Food and Drug Administration. The FDA has determined that such clearance or approval is not necessary. The above immunohistochemical/dualISH markers are ordered and reviewed by the Pathologist. INTERPRETATION: Paracentesis fluid: A few atypical epithelioid cells noted. SJ:shoaib 02/18/20 Case has been reviewed in consultation with Dr. Casillas who concurs with the above diagnosis. IDC:AM
--- NOTE | 2020-02-11 12:56 | US_ITS ---
PROCEDURE: ULTRASOUND GUIDED PARACENTESIS CLINICAL HISTORY: Female, 59 years old. ASCITES, BILATERAL OVARIAN CA CONSENT: Yes Time-Out Called: Yes. Consent form signed: Yes. PT-PTT Levels Checked: Yes. TECHNIQUE: With ultrasound guidance a site was found. After this, LIDOCAINE was subcutaneously instilled and a 5 [place]e needle was inserted into the ascites pocket. FINDINGS: FLUID PRE-PROCEDURE A small loculated collection of fluid in the right lower quadrant. With ultrasonic guidance, a paracentesis of this fluid collection was performed and 500 cc of clear fluid was aspirated from this pocket, 100 cc of which was sent to laboratory for further evaluation. US/Paracentesis with US IMPRESSION: A paracentesis was performed in the right lower quadrant and 500 cc of ascites was aspirated. Electronically Signed: Kings Lynch, at 9:49 EST Tel , Service support ,
--- NOTE | 2020-02-11 14:00 | FLU_PTH ---
PATIENT: SOFIA COERA LOC: [facility]#:[id number] AGE/SX: 64/F ROOM: RE02/11/[address]: Dr. Jaciel Morfin MD : 1960 BED: DIS: SPEC #: [id number] RECD: 02/11/20 14:49 STATUS: SANGITA MARIANELA #: [id number] YEIMI: 02/11/20 14:[address]: Jaciel Morfin DEPT: CYTOLOGY RECD BY: Jayna Adair ENTERED: 02/13/20 07:09 SP TYPE: Fluid OTHR DR: Dr. Edison Roa III, MD Tissues: PARACENTESIS FLUID Procedures: Special Stain Group II Surgery Specimen Level IV Cytospin Fluid HEADER OPERATION: Paracentesis PRE-OP DIAGNOSIS: Ascites, bilateral ovarian CA TISSUE SUBMITTED: Paracentesis fluid for cytology DIAGNOSIS CYTOLOGY Paracentesis fluid for cytology (cytospin and cell block): A few atypical epithelioid cells noted. See comment. SJ:shoaib 02/18/20 COMMENT Immunohistochemistry ([id number]) supports the above diagnosis. 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 This case is discussed with Dr. Morfin on 02/18/20. If there is a high suspicion of malignancy, rebiopsy of the lesion and/or repeat cytology of paracentesis fluid is suggested if clinically indicated. Case has been reviewed in consultation with Dr. Casillas who concurs with the above diagnosis. IDC:AM CYTOLOGY STUDY Slides are reviewed. CYTOLOGY GROSS Received is 90 ml of pale yellow cloudy fluid labeled with the patient's name and and designated per the requisition as paracentesis. Submitted for cytology preparation including cell block. / shoaib 02/13/20 TC:5 CPT: 88207, 89627
[2020-02-11 14:17] VITALS: BP 147/85; BP 168/89; BP 175/84; PULSE 88; PULSE 89; RESP 14; RESP 20; TEMP 36.9; O2SAT 95; O2SAT 96; O2SAT 97
[2020-02-11 14:50] LABS: Cytology, Body Fluid / CSF SEE PATHOLOGY REPORT
[2020-02-11 15:05] LABS: Hematocrit 33.7 % (37-47); Hemoglobin 10.8 g/dL (12.0-15.0); Mean Corpuscular Hgb 32.7 pg (27.0-32.0); Mean Corpuscular Volume 102.1 fL (81-99); Mean Platelet Vol. 11.8 fl (6.2-12.0); POSITIVE MORPHOLOGY YES; Platelet Count 271 K/mm3 (150-450); RBC Distribution Width CV 17.8 % (11.6-14.6); RBC Distribution Width SD 66.5 fl (35.1-43.9)
[2020-02-11 15:10] LABS: Body Fluid Mononuclear WBC # 0.305 10^3/uL; Body Fluid Mononuclear WBC % 92.4 %; Body Fluid Polynuclear WBC # 0.025 10^3/uL; Body Fluid Polynuclear WBC % 7.6 %; Body Fluid Total Cells Counted 0.358 10^3/ul
[2020-02-11 15:14] LABS: International Normalized Ratio 0.9; Prothrombin Time (Protime)PT. 11.7 SECONDS (11.7-14.9)
[2020-02-11 15:18] LABS: Scan Indicated on CBC? Y/N YES- FLAGS NOTED
[2020-02-11 16:14] LABS: Auto B Fluid Analyzer BKGD Ct COUNTS W/IN LIMITS (W/IN LIMITS); Red Cell Count/Body Fluid 4 /mm3
[2020-02-11 16:19] LABS: Appearance/Body Fluid CLOUDY; Color/Body Fluid COLORLESS; Source- Body Fluid PERITONEAL FLUID
[2020-02-11 16:20] LABS: Body Fluid QC Type(s) BF2Q
[2020-02-11 16:23] LABS: Lymphocytes 75 %; Macrophages 9 %; Mesothelial Cells 1 %; Monocytes 8 %; Neutrophil (Segs) 7 %
[2020-02-13 14:33] LABS: Pathologist Comment/Body Fluid Reviewed
== END ==
PROVIDERS: PCP Family Medicine; Referring Provider Internal Medicine Hematology & Oncology; Visit Provider Internal Medicine Hematology & Oncology
DX: C56.1 Malignant neoplasm of right ovary (principal); C78.6 Secondary malignant neoplasm of retroperitoneum and peritoneum; C56.2 Malignant neoplasm of left ovary; R18.0 Malignant ascites
CPT/HCPCS: 36415; 36591; 49083; 85027; 85610; 88108; 88305; 88313; 88341; 88342; 89050; A4216

== ENCOUNTER → 2020-03-08 14:10 | Outpatient (CLI) | payer MEDICARE, MEDICAID, SELFPAY ==
[2020-01-30 11:22] VITALS: BMI 16.0
--- NOTE | 2020-03-08 14:11 | US_ITS ---
PROCEDURE: Ultrasound guided paracentesis. DATE OF EXAMINATION: 03/08/2020. INDICATION: Female, 59 years old. Ascites. PHYSICIAN: Ernesto Grijalva M.D. TECHNIQUE: The risks, benefits, and alternatives to the procedure were explained to the patient. The specific risks of bleeding, infection, and damage to bowel were detailed and accepted. Witnessed informed consent was obtained. The abdomen was ultrasonographically surveyed. An appropriate pocket of fluid was identified at the left lower quadrant. The skin were cleaned and prepped in the usual sterile fashion. Using ultrasound guidance, the peritoneal cavity was accessed with a 5-Upper Sorbian paracentesis needle/catheter system. The trocar was removed. A total of 200 ml of alice-colored fluid were removed from the peritoneal cavity. The catheter was removed and a sterile dressing was applied. The procedure was well tolerated. US/Paracentesis with US IMPRESSION: Ultrasound guided paracentesis. Electronically Signed: Ernesto Grijalva, at 15:11 EST , Service support ,
[2020-03-08 14:53] VITALS: BP 157/76; BP 162/74; PULSE 86; PULSE 87; RESP 18; TEMP 37.1; O2SAT 99
== END ==
PROVIDERS: PCP Family Medicine; Referring Provider Internal Medicine Hematology & Oncology; Visit Provider Internal Medicine Hematology & Oncology
DX: C56.9 Malignant neoplasm of unspecified ovary (principal); R18.8 Other ascites
CPT/HCPCS: 49083

== ENCOUNTER 2021-02-21 09:06 | Inpatient (IN) | payer MEDICARE, MEDICAID, SELFPAY ==
[2021-02-21] VITALS (18 sets, daily range): BP systolic 116–146; BP diastolic 56–94; PULSE 85–110; RESP 15–102; TEMP 35.6–37.1; O2SAT 80–99; BMI 15.4; BMI 15.5
--- NOTE | 2021-02-21 10:00 | RAD_ITS ---
STUDY: X-RAY CHEST REASON FOR EXAM: Female, 60 years old. Cough sob TECHNIQUE: Single AP portable view of the chest. COMPARISON: Comparison is made with prior study dated 2019. FINDINGS: A left-sided marina catheter seen with the tip at the junction of the superior vena cava and right atrium. EKG electrodes are seen. There is hyperinflation of the lungs consistent with chronic obstructive lung disease (COPD). Stable small calcified granuloma in the lateral aspect of the right lower lobe. There is no demonstrated pleural abnormality. Normal size heart. Normal mediastinum and sweta. Normal visualized pulmonary arteries. Normal visualized aortic arch and descending thoracic aorta. Normal visualized thoracic spine. Normal visualized ribs, clavicles, and shoulders. There is no demonstrated abnormality of the visualized soft tissue structures of the upper abdomen. RAD/Chest 1 View (Portable) IMPRESSION: Hyperinflation. The lungs are clear. Electronically Signed: Ernesto Grijalva MD at 10:55 EST , Service support ,
--- NOTE | 2021-02-21 10:00 | EKG12_ITS ---
Test Reason : SOB Blood Pressure : / mmHG Vent. Rate : 095 BPM Atrial Rate : 095 BPM P-R Int : 132 ms QRS Dur : 104 ms QT Int : 368 ms P-R-T Axes : 087 075 076 degrees QTc Int : 462 ms Normal sinus rhythm Poor R wave progression Confirmed by ADELSO RUBIO, ZACKERY ([id number]), newspaper or periodical editor BERNADETTE EAGLE ([id number]) on 02/23/2021 10:25:40 AM Referred By: LIONEL/FIDELINA Confirmed By:ZACKERY DARDEN MD
--- NOTE | 2021-02-21 10:02 | EDS_ITS ---
HPI History of Present Illness Chief Complaint: Shortness of Breath Informant: patient and family Onset/Context/Timing Onset: Days (3) Context: gradual Timing: Continuous Quality: Positive for Dyspnea on exertion and Wheezing Current Severity: Mild Maximum Severity: Moderate Worsened by: Exertion and Coughing Relieved by: Rest and Albuterol (MDI) Associated Symptoms cough; Negative for fever or sore throat Chest Pain: Positive for None Narrative Narrative: Patient feels like her COPD is acting up and has bronchitis for the past 3 days. No fevers or chills. Has had Covid vaccination post booster, no exposures to Covid that she knows of recently. She and family state she gets bronchitis like this every winter this time a year. She denies any leg swelling. She has ovarian cancer she has been battling it for 9 years, she had remote surgeries for it, nothing recent, she continues to take oral chemotherapy at home without radiation at this time. She is not on oxygen for her COPD. Her oxygen saturations were in the 60s here at triage. Daughter states that she was really short of breath last night, she was looking great and had some perioral cyanosis at times. [facility] Medical History (Updated 02/21/21 @ 13:[address] Guillaume Williamson MD) Arterial hemorrhage Bipolar disorder (manic depression) COPD (chronic obstructive pulmonary disease) Hypertension Ovarian epithelial cancer Home Medications lamotrigine [Lamictal] 100 mg PO DAILY 05/23/17 [History Last Taken 02/21/21] ondansetron HCl 8 mg PO Q8H PRN PRN 05/23/17 [History Last Taken 09/17/17] albuterol sulfate [Ventolin HFA] 2 puff INHALATION Q6H PRN PRN 05/30/17 [History Last Taken 02/20/21] cholecalciferol (vitamin D3) [Vitamin D3] 1,000 unit PO DAILY 05/30/17 [History Last Taken 02/21/21] lidocaine-prilocaine 1 applic TOPICAL UD PRN 05/30/17 [History Last Taken 07/25/17] levothyroxine 25 mcg PO DAILY 07/30/18 [History Last Taken 02/21/21] oxycodone-acetaminophen 1 tab PO DAILY PRN 07/30/18 [History Last Taken Unknown] prochlorperazine maleate [Compazine] 10 mg PO Q6H PRN PRN 07/30/18 [History Last Taken Unknown] olanzapine 10 mg PO QHS 12/17/19 [History Last Taken 02/20/21] amlodipine 10 mg PO DAILY #30 tab 02/02/20 [Rx Last Taken 02/21/21] Allergy/AdvReac Type Severity Reaction Status Date / Time erythromycin base Allergy Hives Verified 02/21/21 09:06 [Erythromycin Base] Surgical History H/O: hysterectomy Social History Smoking Status: Current every day smoker tobacco type: cigarettes ROS ROS ED Constitutional Constitutional ED: Denies chills or fever(s) Eyes Eyes: Denies change in vision or diplopia ENT ENT ED: Denies rhinorrhea or sore throat Cardiovascular Cardiovascular: Denies chest pain or palpitations Respiratory/Chest Respiratory/Chest: Reports cough, dyspnea, dyspnea on exertion and wheezing Gastrointestinal Gastrointestinal: Reports other Details: Diffuse abdominal wall pain just due to coughing ; Denies diarrhea, nausea or vomiting Genitourinary Genitourinary ED: Denies dysuria or hematuria Musculoskeletal Musculoskeletal: Denies back pain or neck pain Integumentary Denies abscess or rash Neurologic Neurologic: Denies headache(s), paresthesias or weakness Psychiatric Psychiatric: Denies anxiety or suicidal thoughts EXAM Physical Exam Const Vital Signs: 02/21/21 09:06 02/21/21 09:24 02/21/21 09:35 Temperature 96.1 F L 96.1 F L Temperature Source Temporal Temporal Pulse Rate 102 H 91 Respiratory Rate 20 H 18 Respiratory Effort Short of Breath Labored Respiratory Depth Deep Respiratory Pattern Tachypnea Blood Pressure 141/65 H 138/77 H Blood Pressure Mean 90 97 Pulse Ox 96 98 Oxygen Delivery Method Nasal Cannula Nasal Cannula Nasal Cannula Oxygen Flow Rate (L/min) 4 3 3 02/21/21 10:01 02/21/21 10:09 02/21/21 11:00 Temperature 96.1 F L 98.6 F Temperature Source Temporal Oral Pulse Rate 91 85 Respiratory Rate 21 H 15 Respiratory Effort Respiratory Depth Respiratory Pattern Blood Pressure 137/76 H 146/65 H Blood Pressure Mean 96 92 Pulse Ox 97 95 Oxygen Delivery Method Nasal Cannula Nasal Cannula Nasal Cannula Oxygen Flow Rate (L/min) 4 3 3 02/21/21 12:00 02/21/21 12:38 02/21/21 12:47 Temperature 98.5 F Temperature Source Oral Pulse Rate 85 85 Respiratory Rate 18 15 16 Respiratory Effort Short of Breath Respiratory Depth Respiratory Pattern Blood Pressure 135/70 H Blood Pressure Mean 91 Pulse Ox 95 93 93 Oxygen Delivery Method Nasal Cannula Nasal Cannula Nasal Cannula Oxygen Flow Rate (L/min) 3 3 3 02/21/21 13:25 02/21/21 13:27 02/21/21 13:38 Temperature Temperature Source Pulse Rate 110 H 110 H 100 Respiratory Rate 31 H 25 H 102 H Respiratory Effort Respiratory Depth Respiratory Pattern Blood Pressure 118/65 Blood Pressure Mean 82 Pulse Ox 80 90 95 Oxygen Delivery Method Room Air Nasal Cannula Nasal Cannula Oxygen Flow Rate (L/min) 4 3 02/21/21 14:00 Temperature Temperature Source Pulse Rate 100 Respiratory Rate 20 H Respiratory Effort Respiratory Depth Respiratory Pattern Blood Pressure 117/56 L Blood Pressure Mean 76 Pulse Ox 96 Oxygen Delivery Method Nasal Cannula Oxygen Flow Rate (L/min) 3 Positive well nourished and well developed General Appearance ED: well developed and NAD HEENT Reports moist mucous membranes normocephalic and atraumatic Eyes PERRL and EOMs intact bilaterally Neck full ROM and supple Resp normal respiratory effort Resp Narrative: Diminished breath sounds throughout and symmetrically. Expiratory wheezes throughout. No other adventitious breath sounds heard Cardio regular rate, regular rhythm and no murmurs GI non-tender and non-distended Auscultation: normoactive bowel sounds Palpation: soft Back/Spine no CVA tenderness General Back: other FROM Extremity normal to inspection General Extremety ED: Negative for edema, pulses abnormal or tenderness General Extremity: Negative for edema or pulses abnormal Neuro oriented x3, CN's II-XII intact bilaterally and no sensory deficits noted Sensorium / Orientation: awake and alert Motor Exam: strength 5/5 throughout Skin no rashes or lesions noted and no wounds MDM MDM MDM Narrative Medical decision making narrative: Work-up shows a white blood count of 30.4 with a strong leftward shift, discussing with the patient she had a Neulasta injection this past week which is probably contributing to that if not completely responsible. The rest of her work-up was fairly unremarkable, inc luding her chest x-ray which at first I thought the one-view portable x-ray on my interpretation was showing a subtle right lower lobe infiltrate. Radiology did not think so. I have started her on Zosyn and vancomycin empirically just in case, in addition to Solu-Medrol, expecting to start her on antibiotics and steroids for her COPD anyway. Her Covid returned negative as expected. After this came back negative, we gave her a set of nebulizer treatments which did help her breathing, however taken her off of oxygen nasal cannula after that, she quickly desatted to about 70% while resting. She is doing okay on a 4 L nasal cannula. She is amenable to admission at this time, after we discussed risks and benefits. Lab Data Attestation: I reviewed the patient's lab results. Labs: Laboratory Results - last 24 hr 02/21/21 02/21/21 02/21/21 09:41 09:41 09:41 WBC 30.4 H* RBC 3.47 L Hgb 11.5 L Hct 34.0 L MCV 98.0 MCH 33.1 H MCHC 33.8 RDW Std Deviation 60.4 H RDW Coeff of Aracely 16.8 H Plt Count 153 MPV 12.1 H Immature Gran % (Auto) 0.500 Neut % (Auto) 80.3 H Lymph % (Auto) 9.7 L [place] % (Auto) 9.1 Eos % (Auto) 0.2 Baso % (Auto) 0.2 Absolute Neuts (auto) 24.4 H Absolute Lymphs (auto) 2.96 Nucleated RBC % 0 Diff Path Review May foll Sodium 137 Potassium 3.4 L Chloride 104 Carbon Dioxide 27.0 Anion Gap 6 BUN 15 Creatinine 0.89 Estim Creat Clear Calc 44.68 Est GFR (MDRD) Af Amer 83 Est GFR (MDRD) Non-Af 69 BUN/Creatinine Ratio 16.8 Glucose 119 H Lactic Acid 1.5 Calcium 8.7 Total Bilirubin 0.40 AST 34 ALT 37 Alkaline Phosphatase 192 H Troponin I High Sens 9 Total Protein 7.6 Albumin 3.5 Globulin 4.1 Albumin/Globulin Ratio 0.9 Urine Color Urine Clarity Urine pH Ur Specific [place] Urine Protein Urine Glucose (UA) Urine Ketones Urine Occult Blood Urine Nitrite Urine Bilirubin Urine Urobilinogen Ur Leukocyte Esterase Urine RBC Urine WBC Ur Squamous Epith Cells Urine Bacteria Urine Mucus 02/21/21 10:54 WBC RBC Hgb Hct MCV MCH MCHC RDW Std Deviation RDW Coeff of Aracely Plt Count MPV Immature Gran % (Auto) Neut % (Auto) Lymph % (Auto) [place] % (Auto) Eos % (Auto) Baso % (Auto) Absolute Neuts (auto) Absolute Lymphs (auto) Nucleated RBC % Diff Path Review Sodium Potassium Chloride Carbon Dioxide Anion Gap BUN Creatinine Estim Creat Clear Calc Est GFR (MDRD) Af Amer Est GFR (MDRD) Non-Af BUN/Creatinine Ratio Glucose Lactic Acid Calcium Total Bilirubin AST ALT Alkaline Phosphatase Troponin I High Sens Total Protein Albumin Globulin Albumin/Globulin Ratio Urine Color Yellow Urine Clarity Clear Urine pH 6.0 Ur Specific [place] 1.015 Urine Protein 100 H Urine Glucose (UA) Normal Urine Ketones Negative Urine Occult Blood Negative Urine Nitrite Negative Urine Bilirubin Negative Urine Urobilinogen Normal Ur Leukocyte Esterase 25 H Urine RBC 0 SEEN Urine WBC 0 SEEN Ur Squamous Epith Cells 0-5 SEEN Urine Bacteria 0 SEEN Urine Mucus 0 SEEN Radiography Diagnostic Testing: Clinical Impression(s) from Imaging Studies Chest X-Ray 02/21/21 10:00 IMPRESSION: Hyperinflation. The lungs are clear. Electronically Signed: Ernesto Grijalva MD at 10:55 EST , Service support , EKG Initial EKG: Attestation: I personally reviewed and interpreted this EKG as follows: Interpretation: Sinus Rhythm and No Acute Injury Pattern Comments: Normal EKG with some artifact Discharge Plan Dx/Rx/DC Orders Clinical Impression: Hypoxemia, Acute exacerbation of chronic obstructive pulmonary disease (COPD), Acute bronchitis Disposition Disposition: Acute Care [facility]
[2021-02-21 10:09] LABS: Absolute Lymphocyte Count 2.96 X10^3/uL (0.83-4.51); Absolute Neutrophil Count 24.4 X10^3/uL (2.0-7.7); Basophil# 0.07 X10^3/uL; Basophil% 0.2 % (0-1); Eosinophil# 0.05 X10^3/uL; Eosinophils% 0.2 % (0-5); Hemoglobin 11.5 g/dL (12.0-15.0); Lymphocyte # 2.96 X10^3/ul (0.83-4.51); Lymphocyte % 9.7 % (19-41); Mean Corp Hgb Conc 33.8 g/dL (32-36); Mean Corpuscular Hgb 33.1 pg (27.0-32.0); Mean Platelet Vol. 12.1 fl (6.2-12.0); Monocyte# 2.77 X10^3/uL; Monocyte% 9.1 % (0-10); NRBC Flagged by Analyzer 0 % (0-5); Neutrophil # 24.41 X10^3/uL (2.7-7.7); Neutrophil % 80.3 % (47-70); POSITIVE COUNT YES; POSITIVE DIFFERENTIAL YES; POSITIVE MORPHOLOGY YES; Platelet Count 153 K/mm3 (150-450); RBC Distribution Width CV 16.8 % (11.6-14.6); RBC Distribution Width SD 60.4 fl (35.1-43.9); Red Blood Count 3.47 M/mm3 (4.2-5.4); White Blood Count 30.4 K/mm3 (4.4-11.0)
[2021-02-21] MEDS: MethylPREDNISolone 125 MG/2 ML Vial IV (10:10)
[2021-02-21 10:11] LABS: Differential Indicated SCAN CRITERIA MET
[2021-02-21] MEDS: 0.9% Normal Saline 1,000 ML 150 ML IV (10:15)
[2021-02-21 10:26] LABS: Lactic Acid 1.5 mmol/L (0.4-1.9)
[2021-02-21 10:30] LABS: ALB/GLOB Ratio 0.9 RATIO (0.9-2.4); AST(SGOT) 34 U/L (15-37); Alanine Aminotransfer ALT/SGPT 37 U/L (13-56); Albumin, Serum 3.5 g/dL (3.2-5.0); Alkaline Phosphatase 192 U/L (45-117); Anion Gap 6 (5-15); BUN 15 mg/dL (7-18); BUN/Creat Ratio 16.8 RATIO (10-20); Calcium,Total 8.7 mg/dL (8.5-10.1); Chloride 104 mmol/L (98-107); Creatinine, Serum 0.89 mg/dL (0.55-1.02); EST Glomerular Filtration Rate 69 mL/min (>60); Est Glom Filt Rate - Afr Amer 83 mL/min (>60); Estimated Creatinine Clearance 44.68 ml/min; Globulin 4.1 g/dL (2.2-4.2); Glucose 119 mg/dL (74-106); Potassium 3.4 mmol/L (3.5-5.1); Protein, Total 7.6 g/dL (6.4-8.2); Sodium Level 137 mmol/L (136-145); Troponin-I HS 9 pg/mL (3.0-54.0)
[2021-02-21 11:00] LABS: Bacteria 0 SEEN /hpf (None Seen); Mucous, Urine 0 SEEN /hpf (<or=2+); Red Blood Cells-Urine 0 SEEN /hpf (0-5); White Blood Cells 0 SEEN /hpf (0-5)
[2021-02-21 11:11] LABS: Color, Urine Yellow (Yellow); Glucose, Dipstick Normal (Normal); Ketone-Dipstick Negative (Negative); Leukocyte Esterase-Dipstick 25 /ul (Negative); Nitrite-Dipstick Negative (Negative); Occult Blood-Urine Negative /ul (Negative); Protein-Dipstick 100 mg/dl (Negative); Specific Gravity, Urine 1.015 (1.002-1.030); Urine Bilirubin Dipstick Negative (Negative); Urine Clarity Clear (Clear); Urine Urobilinogen Normal (Normal)
[2021-02-21 11:17] LABS: Squamous Epithelial Cells - UA 0-5 SEEN /hpf (5-10)
[2021-02-21] MEDS: Ipratropium/Albuterol Sulfate 3 ML AMPUL.NEB INHALATION ×2 (12:35→20:45)
[2021-02-21] MEDS: Albuterol 2.5 MG/3 ML VIAL.NEB. INHALATION ×2 (12:53)
--- NOTE | 2021-02-21 13:28 | ED.RN ---
SPO2 DROPPED TO 80 ON ROOM AIR WHILE RESTING IN BED, AWARE
--- NOTE | 2021-02-21 15:18 | PCM.HP.STD ---
Documented by User: DK Villalba 02/21/21 15:38 HPI - General General Date of Admission: 02/21/21 Date of Service: 02/21/21 Chief Complaint: Shortness of Breath HPI Narrative SOFIA COREA, is a 60 F who presents with complaints of increased shortness of breath. Patient states that she has a history of COPD however she is not currently on oxygen at home. Patient also reports a medical history that includes ovarian cancer for which she is undergoing chemotherapy treatments with her last treatment being 02/16/2021. Patient states she follows with Dr. Morfin. [facility] Medical History (Updated 02/21/21 @ 13:[address] Guillaume Williamson MD) Arterial hemorrhage Bipolar disorder (manic depression) COPD (chronic obstructive pulmonary disease) Hypertension Ovarian epithelial cancer Home Medications lamotrigine [Lamictal] 100 mg PO DAILY 05/23/17 [History Last Taken 02/21/21] ondansetron HCl 8 mg PO Q8H PRN PRN 05/23/17 [History Last Taken 09/17/17] albuterol sulfate [Ventolin HFA] 2 puff INHALATION Q6H PRN PRN 05/30/17 [History Last Taken 02/20/21] cholecalciferol (vitamin D3) [Vitamin D3] 1,000 unit PO DAILY 05/30/17 [History Last Taken 02/21/21] lidocaine-prilocaine 1 applic TOPICAL UD PRN 05/30/17 [History Last Taken 07/25/17] levothyroxine 25 mcg PO DAILY 07/30/18 [History Last Taken 02/21/21] oxycodone-acetaminophen 1 tab PO DAILY PRN 07/30/18 [History Last Taken Unknown] prochlorperazine maleate [Compazine] 10 mg PO Q6H PRN PRN 07/30/18 [History Last Taken Unknown] olanzapine 10 mg PO QHS 12/17/19 [History Last Taken 02/20/21] amlodipine 10 mg PO DAILY #30 tab 02/02/20 [Rx Last Taken 02/21/21] Allergy/AdvReac Type Severity Reaction Status Date / Time erythromycin base Allergy Hives Verified 02/21/21 09:06 [Erythromycin Base] Surgical History (Updated 02/21/21 @ 15:25 by DK Villalba) H/O: hysterectomy History of bowel resection History of splenectomy Social History (Updated 02/21/21 @ 15:26 by DK Villalba) Smoking Status: Current every day smoker tobacco type: cigarettes Smoking packs per day: 1 Smoking cigarettes per day: 20.0 Years smoked: 45 Smoking pack-years: 45.00 alcohol intake: former substance use type: does not use ROS Constitutional Constitutional: Reports weakness; Denies anorexia, chills, fatigue, fever(s) or malaise Cardiovascular Cardiovascular: Denies chest pain, edema, palpitations or syncope Respiratory/Chest Respiratory/Chest: Reports cough, shortness of breath at rest, shortness of breath with exertion and wheezing Gastrointestinal Gastrointestinal: Reports nausea; Denies abdominal pain, constipation, diarrhea or vomiting Genitourinary Genitourinary: Denies dysuria Musculoskeletal Musculoskeletal: Denies back pain, extremity pain, joint pain, joint stiffness or joint swelling Integumentary Integumentary: Denies dry skin Neurologic Neurologic: Denies abnormal gait, abnormal speech, confusion, dizziness or focal weakness Psychiatric Psychiatric: Reports depression; Denies anxiety Endocrine Endocrinology: Denies change in body appearance Hematologic/Lymphatic Hematologic/Lymphatic: Denies anemia Vital Signs Vital Signs Vital Signs: 02/21/21 09:06 02/21/21 09:24 02/21/21 09:35 Temperature 96.1 F L 96.1 F L Temperature Source Temporal Temporal Pulse Rate 102 H 91 Respiratory Rate 20 H 18 Respiratory Effort Short of Breath Labored Respiratory Depth Deep Respiratory Pattern Tachypnea Blood Pressure 141/65 H 138/77 H Blood Pressure Mean 90 97 Pulse Ox 96 98 Oxygen Delivery Method Nasal Cannula Nasal Cannula Nasal Cannula Oxygen Flow Rate (L/min) 4 3 3 02/21/21 10:01 02/21/21 10:09 02/21/21 11:00 Temperature 96.1 F L 98.6 F Temperature Source Temporal Oral Pulse Rate 91 85 Respiratory Rate 21 H 15 Respiratory Effort Respiratory Depth Respiratory Pattern Blood Pressure 137/76 H 146/65 H Blood Pressure Mean 96 92 Pulse Ox 97 95 Oxygen Delivery Method Nasal Cannula Nasal Cannula Nasal Cannula Oxygen Flow Rate (L/min) 4 3 3 02/21/21 12:00 02/21/21 12:38 02/21/21 12:47 Temperature 98.5 F Temperature Source Oral Pulse Rate 85 85 Respiratory Rate 18 15 16 Respiratory Effort Short of Breath Respiratory Depth Respiratory Pattern Blood Pressure 135/70 H Blood Pressure Mean 91 Pulse Ox 95 93 93 Oxygen Delivery Method Nasal Cannula Nasal Cannula Nasal Cannula Oxygen Flow Rate (L/min) 3 3 3 02/21/21 13:25 02/21/21 13:27 02/21/21 13:38 Temperature Temperature Source Pulse Rate 110 H 110 H 100 Respiratory Rate 31 H 25 H 102 H Respiratory Effort Respiratory Depth Respiratory Pattern Blood Pressure 118/65 Blood Pressure Mean 82 Pulse Ox 80 90 95 Oxygen Delivery Method Room Air Nasal Cannula Nasal Cannula Oxygen Flow Rate (L/min) 4 3 02/21/21 14:00 Temperature Temperature Source Pulse Rate 100 Respiratory Rate 20 H Respiratory Effort Respiratory Depth Respiratory Pattern Blood Pressure 117/56 L Blood Pressure Mean 76 Pulse Ox 96 Oxygen Delivery Method Nasal Cannula Oxygen Flow Rate (L/min) 3 Weight Weight: 92 lb 13.204 oz Body Mass Index (BMI) 15.4 Physical Exam Const alert, oriented x3 and no apparent distress General Appearance: cooperative HEENT normocephalic and head/scalp atraumatic Eyes conjunctivae normal and no scleral icterus Neck full ROM and supple General: trachea midline Resp Effort and Inspection: able to speak in complete sentences and symmetric chest movement Auscultation: rhonchi throughout and diminished lung sounds Cardio regular rate, regular rhythm, S1 normal heart sound, S2 normal heart sound and peripheral pulses 2+ throughout GI normal to inspection, nondistended, normoactive bowel sounds, soft to palpation and non-tender Extremity normal capillary refill and no clubbing, cyanosis or edema General Extremity: no tenderness to palpation of joints or extremities Skin General Skin Exam: no breakdown and turgor normal Lesions: no lesions Rashes: no rashes Neuro oriented x3, moves all extremities, no focal motor deficits and no sensory deficits noted Psych thought process normal, cooperative and affect normal Appearance: appropriate Results Lab / Micro Data Result Diagrams: 02/21/21 09:41 02/21/21 09:41 Labs: Laboratory Results - last 24 hr 02/21/21 09:41: WBC 30.4 H*, RBC 3.47 L, Hgb 11.5 L, Hct 34.0 L, MCV 98.0, MCH 33.1 H, MCHC 33.8, RDW Std Deviation 60.4 H, RDW Coeff of Aracely 16.8 H, Plt Count 153, MPV 12.1 H, Immature Gran % (Auto) 0.500, Neut % (Auto) 80.3 H, Lymph % (Auto) 9.7 L, [place] % (Auto) 9.1, Eos % (Auto) 0.2, Baso % (Auto) 0.2, Absolute Neuts (auto) 24.4 H, Absolute Lymphs (auto) 2.96, Nucleated RBC % 0, Diff Path Review July02/21/21 09:41: Sodium 137, Potassium 3.4 L, Chloride 104, Carbon Dioxide 27.0, Anion Gap 6, BUN 15, Creatinine 0.89, Estim Creat Clear Calc 44.68, Est GFR (MDRD) Af Amer 83, Est GFR (MDRD) Non-Af 69, BUN/Creatinine Ratio 16.8, Glucose 119 H, Calcium 8.7, Total Bilirubin 0.40, AST 34, ALT 37, Alkaline Phosphatase 192 H, Troponin I High Sens 9, Total Protein 7.6, Albumin 3.5, Globulin 4.1, Albumin/Globulin Ratio 0.9 02/21/21 09:41: Lactic Acid 1.5 02/21/21 10:54: Urine Color Yellow, Urine Clarity Clear, Urine pH 6.0, Ur Specific [place] 1.015, Urine Protein 100 H, Urine Glucose (UA) Normal, Urine Ketones Negative, Urine Occult Blood Negative, Urine Nitrite Negative, Urine Bilirubin Negative, Urine Urobilinogen Normal, Ur Leukocyte Esterase 25 H, Urine RBC 0 SEEN, Urine WBC 0 SEEN, Ur Squamous Epith Cells 0-5 SEEN, Urine Bacteria 0 SEEN, Urine Mucus 0 SEEN Micro: Microbiology 02/21/21 10:26 Interface Orders SARS-CoV-2 Antigen (Rapid) - Final Radiology Impression Chest X-Ray 02/21/21 10:00 IMPRESSION: Hyperinflation. The lungs are clear. Electronically Signed: Ernesto Grijalva MD at 10:55 EST , Service support , Assessment & Plan Assessment/Plan (1) Acute exacerbation of chronic obstructive pulmonary disease (COPD): (2) Tobacco use disorder: PLAN: 1. COPD exacerbation -Admit to [facility] -Encourage incentive spirometry -Oxygen per protocol, currently on 4 L nasal cannula oxygen -CBC and BMP ordered for a.m. -As needed DuoNeb and albuterol treatments ordered -IV Solu-Medrol 40 mg every 8 2. Leukocytosis -Patient received Neulasta shot on 02/16/2021 -CBC ordered daily 3. Ovarian cancer -Patient currently follows with Dr. Morfin, receiving chemotherapy. -Last chemotherapy received 02/16/2021 -We will continue home antiemetics 4. Hypothyroidism -Continue levothyroxine 5. Anxiety and depression -Continue olanzapine and Lamictal 6. Hypertension -Vital signs per protocol, currently stable -Continue home regimen DVT prophylaxis-subcu Lovenox This patient was seen by THIERNO VillalbaC under the supervision of Dr. Pablo. Documented by User: Dr. Bryon Pablo MD 02/21/21 16:03 [facility] Medical History (Updated 02/21/21 @ 13:[address] Guillaume Williamson MD) Arterial hemorrhage Bipolar disorder (manic depression) COPD (chronic obstructive pulmonary disease) Hypertension Ovarian epithelial cancer Home Medications lamotrigine [Lamictal] 100 mg PO DAILY 05/23/17 [History Last Taken 02/21/21] ondansetron HCl 8 mg PO Q8H PRN PRN 05/23/17 [History Last Taken 09/17/17] albuterol sulfate [Ventolin HFA] 2 puff INHALATION Q6H PRN PRN 05/30/17 [History Last Taken 02/20/21] cholecalciferol (vitamin D3) [Vitamin D3] 1,000 unit PO DAILY 05/30/17 [History Last Taken 02/21/21] lidocaine-prilocaine 1 applic TOPICAL UD PRN 05/30/17 [History Last Taken 07/25/17] levothyroxine 25 mcg PO DAILY 07/30/18 [History Last Taken 02/21/21] oxycodone-acetaminophen 1 tab PO DAILY PRN 07/30/18 [History Last Taken Unknown] prochlorperazine maleate [Compazine] 10 mg PO Q6H PRN PRN 07/30/18 [History Last Taken Unknown] olanzapine 10 mg PO QHS 12/17/19 [History Last Taken 02/20/21] amlodipine 10 mg PO DAILY #30 tab 02/02/20 [Rx Last Taken 02/21/21] Allergy/AdvReac Type Severity Reaction Status Date / Time erythromycin base Allergy Hives Verified 02/21/21 09:06 [Erythromycin Base] Surgical History (Updated 02/21/21 @ 15:25 by DK Villalba) H/O: hysterectomy History of bowel resection History of splenectomy Social History (Updated 02/21/21 @ 15:26 by DK Villalba) Smoking Status: Current every day smoker tobacco type: cigarettes Smoking packs per day: 1 Smoking cigarettes per day: 20.0 Years smoked: 45 Smoking pack-years: 45.00 alcohol intake: former substance use type: does not use Results Lab / Micro Data Result Diagrams: 02/21/21 09:41 02/21/21 09:41 Charges/Coding Addendum Addendum: Dr. Pablo: I personally reviewed the chart and examined the patient, and agree with the above findings. 60-year-old female with a history of metastatic ovarian cancer that was diagnosed 9 years ago and she has been undergoing chemotherapy since then. She says that she had multiple remissions in that time during this round of chemotherapy she has not achieved remission yet. She does describe being at the end of the line in terms of the number of chemotherapy agents that she has left that she can try however she would still like to be a full code. I did broach the topic between her and her daughter about palliative care for about 20minutes and they would like to talk about this further and meet with palliative care after discharge. She is currently here for shortness of breath consistent with COPD exacerbation. Her white count is elevated secondary to her recent Neulasta injection her chest x-ray is negative for any type of infiltrate and she has had both her Covid vaccines as well as a booster and tested negative for Covid however will put in for a respiratory panel for completeness. We will continue with duo nebs and steroids at this time. She is currently on around 3 L of oxygen but she does not wear any oxygen at home at baseline. Visit Charges Inpatient E&M: 95449 Init Hosp L3 Procedures Hospitalists Procedures: 82443 Advncd Care Plan 30 Min
--- NOTE | 2021-02-21 18:14 | PCS.PANDOC ---
PANDEMIC DOCUMENTATION INITIATED: Date: 11/01/2020 Time: 190
[2021-02-21] MEDS: OLANZapine 10 MG Tablet PO (21:04)
[2021-02-22] VITALS (9 sets, daily range): BP systolic 107–145; BP diastolic 58–69; PULSE 73–103; RESP 16–22; TEMP 36.5–37.1; O2SAT 93–97
[2021-02-22] MEDS: Levothyroxine 25 MCG TABLET PO (06:13)
[2021-02-22 06:27] LABS: Absolute Lymphocyte Count 3.58 X10^3/uL (0.83-4.51); Absolute Neutrophil Count 32.3 X10^3/uL (2.0-7.7); Basophil# 0.04 X10^3/uL; Basophil% 0.1 % (0-1); Eosinophil# 0.01 X10^3/uL; Hematocrit 30.4 % (37-47); Hemoglobin 10.5 g/dL (12.0-15.0); Lymphocyte # 3.58 X10^3/ul (0.83-4.51); Lymphocyte % 8.9 % (19-41); Mean Corp Hgb Conc 34.5 g/dL (32-36); Mean Corpuscular Hgb 33.8 pg (27.0-32.0); Mean Corpuscular Volume 97.7 fL (81-99); Mean Platelet Vol. 12.1 fl (6.2-12.0); Monocyte# 3.56 X10^3/uL; Monocyte% 8.9 % (0-10); NRBC Flagged by Analyzer 0 % (0-5); Neutrophil # 32.32 X10^3/uL (2.7-7.7); Neutrophil % 80.7 % (47-70); POSITIVE COUNT YES; POSITIVE DIFFERENTIAL YES; POSITIVE MORPHOLOGY YES; Platelet Count 108 K/mm3 (150-450); RBC Distribution Width SD 60.9 fl (35.1-43.9); Red Blood Count 3.11 M/mm3 (4.2-5.4)
[2021-02-22 06:40] LABS: White Blood Count 40.1 K/mm3 (4.4-11.0)
[2021-02-22 06:41] LABS: Differential Indicated SCAN CRITERIA MET
[2021-02-22 06:48] LABS: Anion Gap 6 (5-15); BUN 23 mg/dL (7-18); Calcium,Total 8.4 mg/dL (8.5-10.1); Chloride 109 mmol/L (98-107); EST Glomerular Filtration Rate 60 mL/min (>60); Est Glom Filt Rate - Afr Amer 73 mL/min (>60); Estimated Creatinine Clearance 39.97 ml/min; Glucose 129 mg/dL (74-106); Potassium 4.3 mmol/L (3.5-5.1); Sodium Level 140 mmol/L (136-145)
[2021-02-22] MEDS: Ipratropium/Albuterol Sulfate 3 ML AMPUL.NEB INHALATION ×4 (06:58→19:23)
[2021-02-22 07:00] LABS: Differential Comment SCANNED
[2021-02-22 07:02] LABS: Platelet Estimate SLT DEC (ADEQ)
[2021-02-22 07:04] LABS: Red Cell Morphology N CHROM NORMAL (NORM C&C)
[2021-02-22 07:08] LABS: Schistocytes 1+
[2021-02-22 07:09] LABS: Anisocytosis 1+
[2021-02-22 09:46] LABS: Pathologist Review Reviewed
[2021-02-22] MEDS: Psyllium 1 PACKET PO (11:01)
[2021-02-22] MEDS: oxyCODONE 5 MG Tablet PO ×2 (11:01→21:14)
[2021-02-22] MEDS: lamoTRIgine 100 MG Tablet PO (11:02)
[2021-02-22] MEDS: amLODIPine 10 MG Tablet PO (11:02)
[2021-02-22] MEDS: Nicotine Polacrilex 2 MG GUM PO (11:33)
--- NOTE | 2021-02-22 12:25 | CASEMGMT ---
RN CM APPLICATION SOFTWARE DEVELOPER CM to room to meet with patient for initial transition planning/care coordination assessment. RN CLARICE introduced self and role at [facility]. Pt voices understanding and consents to assessment at this time. Pt resting in bed in no distress at this time. Daughter, Darleen, @ bedside. Pt is A/O at this time and answers all questions appropriately. Care providers, pharmacy, and demographics verified/updated at this time. PCP: Dr Gerber Specialists: Dr Morfin-oncology. Surgical oncologist @ [facility], Dr Morris Preferred Pharmacy: [facility] Retail Insurance: JUANCHO, BRYAN [employer] Prescription Benefit: Yes Living Will/HPOA: Has both LW and HPOA, who is her son, Linnette LNOK: Son.Linnette JONES. Dtr, Darleen Living Arrangements: Lives alone in one-story home w/no steps to enter. Independent. Transportation: Pt states drives self and states no transportation concerns at this time. Dtr, Darleen, will take pt home @ discharge. DME: Denies using any DME. Discussed possible need for Home O2 @ discharge. Provided w/list of local DME companies to review. HHC/SNF: No hx of either. Denies need for HHC. Pt wishes to return home and states has no concerns with going home at time of discharge. CM to follow for home oxygen needs and any further discharge planning/needs. Pt voices no further concerns/needs at this time. Advised pt to ask for CM if any further questions/concerns/needs arise. Voices understanding. PLAN: Home w/family support and discharge plans in place. Follow for any home O2 needs @ discharge. Benjamin SLOAN RN, CM
[2021-02-22 12:47] LABS: Pathologist Review Reviewed
--- NOTE | 2021-02-22 15:30 | CASEMGMT ---
Pt screened with [facility] Palliative Care Screening Tool due to COPD exac, pt met criteria. Order obtained and referral scanned to Palliative.
--- NOTE | 2021-02-22 15:43 | PN.HOSP_ITS ---
Subjective Subjective Follow-up on acute COPD exacerbation: Patient was seen and examined. She is on 3L of oxygen. She denies any new co mplaints. Objective Data Objective Data Vital Signs: Vital Signs Temp Pulse Resp BP Pulse Ox 98.5 F 84 18 116/66 97 02/22/21 15:00 02/22/21 15:00 02/22/21 15:00 02/22/21 15:00 02/22/21 15:00 Oxygen Flow Rate (L/min) 2 Oxygen Delivery Method Nasal Cannula Weight: 42.3 kg Body Mass Index (BMI) 15.5 Intake & Output: Intake and Output for Last 24 Hours 02/20/21 02/21/21 02/22/21 23:59 23:59 23:59 Intake Total 1605 / 1755 150 / 150 Balance 1605 / 1755 150 / 150 Medical Nutrition Assessment Dietitian: Malnutrition Criteria Met Start: 02/22/21 11:09 Freq: Status: Active Protocol: Document 02/22/21 11:10 RMA (Rec: 02/22/21 11:10 RMA [id number]) Nutrition Malnutrition Evidence of Malnutrition Exists Yes Malnutrition (severe): Acute Illness/Injury,Chronic Evidenced By Suboptimal Energy Intake ( Severe),Weight Loss (Severe), Physical Changes (Severe) Clinical Problem Chronic Disease or Condition Related Malnutrition Etiology Severe protein-calorie malnutrition in the context of acute on chronic disease related to increased energy expenditure/catabolic disease, inadequate oral intake Signs/Symptoms as evidenced by ~5% wt loss x past 1-2 months, PO meeting less than 50-75% estimated nutrition needs, need for oral nutrition supplements, BMI 15 .5 and obvious muscle and fat wasting in the orbital, temporal area, clavicle, arms and legs. Status Active Problem Recommendation Dietitian Recommendations/Changes Continue regular diet as ordered with well cooked vegetables and moist meats. Will add 240ml chocolate carnation instant breakfast w/ whole milk TID Q meal. Pt refusing ensure products and magic cup at this time. Lab / Micro Data Result Diagrams: 02/22/21 06:05 02/22/21 06:05 Labs: Laboratory Results - last 24 hr 02/21/21 09:41: Diff Path Review Reviewed 02/22/21 06:05: WBC 40.1 H*, RBC 3.11 L, Hgb 10.5 L, Hct 30.4 L, MCV 97.7, MCH 33.8 H, MCHC 34.5, RDW Std Deviation 60.9 H, RDW Coeff of Aracely 17.0 H, Plt Count 108 L, MPV 12.1 H, Immature Gran % (Auto) 1.400 H, Neut % (Auto) 80.7 H, Lymph % (Auto) 8.9 L, [place] % (Auto) 8.9, Eos % (Auto) 0.0, Baso % (Auto) 0.1, Absolute Neuts (auto) 32.3 H, Absolute Lymphs (auto) 3.58, Nucleated RBC % 0, Differential Comment SCANNED, Diff Path Review Reviewed, Platelet Estimate SLT DEC, RBC Morphology N CHROM, Anisocytosis 1+, Schistocytes 1+ 02/22/21 06:05: Sodium 140, Potassium 4.3, Chloride 109 H, Carbon Dioxide 25.0, Anion Gap 6, BUN 23 H, Creatinine 1.00, Estim Creat Clear Calc 39.97, Est GFR (MDRD) Af Amer 73, Est GFR (MDRD) Non-Af 60, BUN/Creatinine Ratio 23.0 H, Glucose 129 H, Calcium 8.4 L Micro: Microbiology 02/21/21 17:00 Mucosa - Nasopharyngeal Respiratory Panel (PCR) - Final Parainfluenza 4 02/21/21 10:26 Interface Orders SARS-CoV-2 Antigen (Rapid) - Final Physical Exam Narrative Physical exam: General: Alert, Oriented x3, Cooperative, No apparent distress, on 2 L of oxygen HEENT: Atraumatic Oral: Moist Mucosa Neck: Supple Lungs: Diminished to auscultation Cardiovascular: HS I+II, regular, no murmurs Abdomen: Bowel Sounds Present, Soft, Non Tender Extremities: No edema Assessment & Plan Assessment/Plan (1) Acute exacerbation of chronic obstructive pulmonary disease (COPD): (2) Tobacco use disorder: PLAN: 1. Acute COPD exacerbation secondary to H. influenza bronchitis Continue on Solu-Medrol and breathing treatment 2. Leukocytosis, increased, likely secondary to steroids Will continue to monitor 3. Ovarian cancer, receiving chemotherapy, follows Dr. Burgos Last chemotherapy received 02/16/2021 4. Chronic medical conditions including hypothyroidism/anxiety and depr ession/hypertension remained stable Meds reviewed. Charges/Coding Visit Charges Inpatient E&M: 72200 Subs Hosp L2
[2021-02-22] MEDS: OLANZapine 10 MG Tablet PO (21:14)
[2021-02-22] MEDS: 0.9% Saline Lock 10 ML Syringe IV (21:25)
[2021-02-23] VITALS (12 sets, daily range): BP systolic 125–153; BP diastolic 50–85; PULSE 78–96; RESP 18–24; TEMP 36.6–37.1; O2SAT 2–99
[2021-02-23] MEDS: Levothyroxine 25 MCG TABLET PO (05:50)
[2021-02-23] MEDS: 0.9% Saline Lock 10 ML Syringe IV ×3 (05:50→20:20)
[2021-02-23] MEDS: Ipratropium/Albuterol Sulfate 3 ML AMPUL.NEB INHALATION ×2 (07:20→21:10)
[2021-02-23] MEDS: oxyCODONE 5 MG Tablet PO ×2 (07:47→20:10)
[2021-02-23 08:18] LABS: Absolute Lymphocyte Count 3.35 X10^3/uL (0.83-4.51); Absolute Neutrophil Count 28.8 X10^3/uL (2.0-7.7); Basophil# 0.02 X10^3/uL; Basophil% 0.1 % (0-1); Lymphocyte # 3.35 X10^3/ul (0.83-4.51); Lymphocyte % 9.6 % (19-41); Mean Corp Hgb Conc 33.3 g/dL (32-36); Mean Corpuscular Hgb 32.9 pg (27.0-32.0); Mean Corpuscular Volume 98.6 fL (81-99); Mean Platelet Vol. 12.1 fl (6.2-12.0); Monocyte# 1.86 X10^3/uL; Monocyte% 5.3 % (0-10); NRBC Flagged by Analyzer 0.1 % (0-5); Neutrophil # 28.79 X10^3/uL (2.7-7.7); Neutrophil % 82.3 % (47-70); POSITIVE COUNT YES; POSITIVE DIFFERENTIAL YES; POSITIVE MORPHOLOGY YES; Platelet Count 101 K/mm3 (150-450); RBC Distribution Width CV 16.9 % (11.6-14.6); RBC Distribution Width SD 61.6 fl (35.1-43.9); Red Blood Count 3.65 M/mm3 (4.2-5.4)
[2021-02-23 08:35] LABS: Differential Indicated SCAN CRITERIA MET
[2021-02-23 08:36] LABS: Differential Comment SCANNED
[2021-02-23 08:43] LABS: ALB/GLOB Ratio 0.9 RATIO (0.9-2.4); AST(SGOT) 29 U/L (15-37); Alanine Aminotransfer ALT/SGPT 41 U/L (13-56); Albumin, Serum 3.5 g/dL (3.2-5.0); Alkaline Phosphatase 205 U/L (45-117); Anion Gap 7 (5-15); BUN 27 mg/dL (7-18); BUN/Creat Ratio 31.4 RATIO (10-20); Calcium,Total 9.2 mg/dL (8.5-10.1); Chloride 107 mmol/L (98-107); Creatinine, Serum 0.86 mg/dL (0.55-1.02); EST Glomerular Filtration Rate 71 mL/min (>60); Est Glom Filt Rate - Afr Amer 86 mL/min (>60); Estimated Creatinine Clearance 46.45 ml/min; Globulin 3.9 g/dL (2.2-4.2); Glucose 128 mg/dL (74-106); Potassium 4.2 mmol/L (3.5-5.1); Protein, Total 7.4 g/dL (6.4-8.2); Sodium Level 140 mmol/L (136-145)
[2021-02-23] MEDS: Nicotine Polacrilex 2 MG GUM PO (08:47)
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
[2021-02-23] MEDS: amLODIPine 10 MG Tablet PO (10:30)
[2021-02-23] MEDS: lamoTRIgine 100 MG Tablet PO (10:30)
[2021-02-23 13:43] LABS: Pathologist Review Reviewed
--- NOTE | 2021-02-23 15:09 | CASEMGMT ---
LAN CM in to pt room to see who pt has chosen for DME company should she need O2 upon dc. Pt has chosen [employer]. Pt denies further needs at this time.
--- NOTE | 2021-02-23 16:08 | PN.HOSP_ITS ---
Subjective Subjective Follow-up on acute COPD exacerbation: Patient was seen and examined. She is currently short of breath. On 2 L of oxygen. Objective Data Objective Data Vital Signs: Vital Signs Temp Pulse Resp BP Pulse Ox 98.3 F 88 18 125/63 H 95 02/23/21 15:01 02/23/21 15:01 02/23/21 15:01 02/23/21 15:01 02/23/21 15:01 Oxygen Flow Rate (L/min) [ 6 AMBULATING with Oxygen #3] Oxygen Flow Rate (L/min) [ 84 AMBULATING with Oxygen #2] Oxygen Flow Rate (L/min) [ 82 AMBULATING with Oxygen #1] Oxygen Flow Rate (L/min) [At 2 REST with Oxygen] Oxygen Flow Rate (L/min) 2 Oxygen Delivery Method Nasal Cannula Weight: 42.3 kg Body Mass Index (BMI) 15.5 Intake & Output: Intake and Output for Last 24 Hours 02/21/21 02/22/21 02/23/21 23:59 23:59 23:59 Intake Total 1605 / 1755 450 / 570 620 / 620 Balance 1605 / 1755 450 / 570 620 / 620 Medical Nutrition Assessment Dietitian: Malnutrition Criteria Met Start: 02/22/21 11:09 Freq: Status: Active Protocol: Document 02/22/21 11:10 RMA (Rec: 02/22/21 11:10 RMA [id number]) Nutrition Malnutrition Evidence of Malnutrition Exists Yes Malnutrition (severe): Acute Illness/Injury,Chronic Evidenced By Suboptimal Energy Intake ( Severe),Weight Loss (Severe), Physical Changes (Severe) Clinical Problem Chronic Disease or Condition Related Malnutrition Etiology Severe protein-calorie malnutrition in the context of acute on chronic disease related to increased energy expenditure/catabolic disease, inadequate oral intake Signs/Symptoms as evidenced by ~5% wt loss x past 1-2 months, PO meeting less than 50-75% estimated nutrition needs, need for oral nutrition supplements, BMI 15 .5 and obvious muscle and fat wasting in the orbital, temporal area, clavicle, arms and legs. Status Active Problem Recommendation Dietitian Recommendations/Changes Continue regular diet as ordered with well cooked vegetables and moist meats. Will add 240ml chocolate carnation instant breakfast w/ whole milk TID Q meal. Pt refusing ensure products and magic cup at this time. Lab / Micro Data Result Diagrams: 02/23/21 08:04 02/23/21 08:04 Labs: Laboratory Results - last 24 hr 02/23/21 08:04: WBC 35.0 H*, RBC 3.65 L, Hgb 12.0, Hct 36.0 L, MCV 98.6, MCH 32.9 H, MCHC 33.3, RDW Std Deviation 61.6 H, RDW Coeff of Aracely 16.9 H, Plt Count 101 L, MPV 12.1 H, Immature Gran % (Auto) 2.700 H, Neut % (Auto) 82.3 H, Lymph % (Auto) 9.6 L, Mathews % (Auto) 5.3, Eos % (Auto) 0.0, Baso % (Auto) 0.1, Absolute Neuts (auto) 28.8 H, Absolute Lymphs (auto) 3.35, Nucleated RBC % 0.1, Differential Comment SCANNED, Diff Path Review Reviewed 02/23/21 08:04: Sodium 140, Potassium 4.2, Chloride 107, Carbon Dioxide 26.0, Anion Gap 7, BUN 27 H, Creatinine 0.86, Estim Creat Clear Calc 46.45, Est GFR (MDRD) Af Amer 86, Est GFR (MDRD) Non-Af 71, BUN/Creatinine Ratio 31.4 H, Glucose 128 H, Calcium 9.2, Total Bilirubin 0.30, AST 29, ALT 41, Alkaline Phosphatase 205 H, Total Protein 7.4, Albumin 3.5, Globulin 3.9, Alb umin/Globulin Ratio 0.9 Micro: Microbiology 02/21/21 10:34 Blood Culture (Wb) - Left Wrist Blood Culture - Preliminary No growth in 48 hours. 02/21/21 09:41 Blood Culture (Wb) - Central Line Blood Culture - Preliminary No growth in 48 hours. 02/21/21 17:00 Mucosa - Nasopharyngeal Respiratory Panel (PCR) - Final Parainfluenza 4 02/21/21 10:26 Interface Orders SARS-CoV-2 Antigen (Rapid) - Final Physical Exam Narrative Physical exam: General: Alert, Oriented x3, Cooperative, No apparent distress, on 2 L of oxygen HEENT: Atraumatic Oral: Moist Mucosa Neck: Supple Lungs: Diminished to auscultation Cardiovascular: HS I+II, regular, no murmurs Abdomen: Bowel Sounds Present, Soft, Non Tender Extremities: No edema HEENT normocephalic and head/scalp atraumatic Eyes conjunctivae normal and no scleral icterus Assessment & Plan Assessment/Plan (1) Acute exacerbation of chronic obstructive pulmonary disease (COPD): (2) Tobacco use disorder: PLAN: 1. Acute COPD exacerbation secondary to H. influenza bronchitis Patient is on 2 L of oxygen, very short of breath with minimal exertion Continue on Solu-Medrol and breathing treatment Check D-dimer 2. Leukocytosis, increased, likely secondary to steroids, improved Will continue to monitor 3. Ovarian cancer, receiving chemotherapy, follows Dr. Morfin Last chemotherapy received 02/16/2021 4. Chronic medical conditions including hypothyroidism/anxiety and depre ssion/hypertension remained stable Meds reviewed. Charges/Coding Visit Charges Inpatient E&M: 38056 Subs Hosp L2
[2021-02-23 17:24] LABS: D-Dimer Quantitative (DVT/PE) 1.61 FEU/ug/m (0.27-0.49)
--- NOTE | 2021-02-23 17:34 | CT_ITS ---
We are attempting to reach an attending provider to discuss findings. An addendum with communication details will be sent when the communication is complete. EXAM: CT ANGIOGRAPHY CHEST WITHOUT AND WITH INTRAVENOUS CONTRAST CLINICAL INDICATION: rule out PE, elevated D Dimer TECHNIQUE: Helically acquired angiography images were obtained of the chest without and with intravenous contrast. This CT exam was performed using one or more of the following dose reduction techniques: automated exposure control, adjustment of the mA and/or kV according to patient size, and/or use of iterative reconstruction technique. This report was created using [employer] report generation technology. MIP reconstructed images were created and reviewed. CONTRAST: IV 75mL [id number] COMPARISON: 5.14.19 FINDINGS: PULMONARY ARTERIES: There is a right lower lobe pulmonary embolism with no heart strain. Normal in caliber. AORTA: Unremarkable. Normal in caliber. No evidence of dissection. GREAT VESSELS OF AORTIC ARCH: Unremarkable. Normal in caliber. No evidence of dissection. LUNGS AND PLEURAL SPACES: Right lower lobe calcified granuloma. Calcified right hilar region. There are scattered blebs and bullae. This can be seen in pulmonary emphysema. No mass. No pleural effusion or thickening. No pneumothorax. HEART: Unremarkable. Heart size is normal. No pericardial effusion. No signs of right heart strain, ratio of right ventricle to left ventricle measures less than 1. MEDIASTINUM: Unremarkable. No mediastinal or hilar adenopathy. Esophagus is unremarkable. No hiatal hernia. THYROID: Unremarkable. No thyroid lesions. BONES/JOINTS: There are degenerative findings of the thoracic spine. No suspicious lytic or blastic abnormality. CT/CTA Chest W/WO Contrast IMPRESSION: There is a right lower lobe pulmonary embolism with no heart strain. Electronically Signed: Rafael Galicia MD at 18:17 EST , Service support ,
[2021-02-23] MEDS: Acetaminophen 325 MG Tablet 650 MG PO (20:10)
[2021-02-23] MEDS: Enoxaparin 40 MG/0.4 ML Syringe SC (20:20)
[2021-02-23] MEDS: OLANZapine 10 MG Tablet PO (20:20)
[2021-02-23] MEDS: Psyllium 1 PACKET PO (20:20)
[2021-02-24] VITALS (11 sets, daily range): BP systolic 120–153; BP diastolic 65–72; PULSE 67–105; RESP 16–22; TEMP 36–36.8; O2SAT 90–97
[2021-02-24] MEDS: oxyCODONE 5 MG Tablet PO (06:13)
[2021-02-24] MEDS: 0.9% Saline Lock 10 ML Syringe IV ×2 (06:13→14:39)
[2021-02-24] MEDS: Acetaminophen 325 MG Tablet 650 MG PO ×2 (06:13→14:39)
[2021-02-24] MEDS: Levothyroxine 25 MCG TABLET PO (06:13)
[2021-02-24] MEDS: Ipratropium/Albuterol Sulfate 3 ML AMPUL.NEB INHALATION ×4 (07:33→19:37)
[2021-02-24] MEDS: lamoTRIgine 100 MG Tablet PO (09:37)
[2021-02-24] MEDS: Enoxaparin 40 MG/0.4 ML Syringe SC ×2 (09:37→21:01)
[2021-02-24] MEDS: amLODIPine 10 MG Tablet PO (09:38)
[2021-02-24] MEDS: guaiFENesin 10 ML UDC (200MG/10ML) PO ×2 (09:51→14:39)
[2021-02-24] MEDS: Nicotine Polacrilex 2 MG GUM PO (09:51)
[2021-02-24] MEDS: LORazepam 1 MG Tablet PO (10:31)
--- NOTE | 2021-02-24 10:53 | PCM.PN.HOSP ---
Subjective Subjective Follow-up on acute COPD exacerbation/acute PE Patient was seen and examined. She is on 2-5L of oxygen. She complains of shortness of breath and feeling anxious. She has a lot of questions and all were answered to her satisfaction. Objective Data Objective Data Vital Signs: Vital Signs Temp Pulse Resp BP Pulse Ox 96.8 F L 86 18 146/70 H 97 02/24/21 09:30 02/24/21 10:48 02/24/21 10:48 02/24/21 09:30 02/24/21 10:19 Oxygen Flow Rate (L/min) [ 5 AMBULATING with Oxygen #3] Oxygen Flow Rate (L/min) [ 4 AMBULATING with Oxygen #2] Oxygen Flow Rate (L/min) [ 2 AMBULATING with Oxygen #1] Oxygen Flow Rate (L/min) [At 2 REST with Oxygen] Oxygen Flow Rate (L/min) 2 Oxygen Delivery Method Nasal Cannula Weight: 42.3 kg Body Mass Index (BMI) 15.5 Intake & Output: Intake and Output for Last 24 Hours 02/22/21 02/23/21 02/24/21 23:59 23:59 23:59 Intake Total 450 / 570 980 / 980 400 / 400 Balance 450 / 570 980 / 980 400 / 400 Medical Nutrition Assessment Dietitian: Malnutrition Criteria Met Start: 02/22/21 11:09 Freq: Status: Active Protocol: Document 02/22/21 11:10 RMA (Rec: 02/22/21 11:10 RMA [id number]) Nutrition Malnutrition Evidence of Malnutrition Exists Yes Malnutrition (severe): Acute Illness/Injury,Chronic Evidenced By Suboptimal Energy Intake ( Severe),Weight Loss (Severe), Physical Changes (Severe) Clinical Problem Chronic Disease or Condition Related Malnutrition Etiology Severe protein-calorie malnutrition in the context of acute on chronic disease related to increased energy expenditure/catabolic disease, inadequate oral intake Signs/Symptoms as evidenced by ~5% wt loss x past 1-2 months, PO meeting less than 50-75% estimated nutrition needs, need for oral nutrition supplements, BMI 15 .5 and obvious muscle and fat wasting in the orbital, temporal area, clavicle, arms and legs. Status Active Problem Recommendation Dietitian Recommendations/Changes Continue regular diet as ordered with well cooked vegetables and moist meats. Will add 240ml chocolate carnation instant breakfast w/ whole milk TID Q meal. Pt refusing ensure products and magic cup at this time. Lab / Micro Data Result Diagrams: 02/23/21 08:04 02/23/21 08:04 Labs: Laboratory Results - last 24 hr 02/23/21 08:04: Diff Path Review Reviewed 02/23/21 16:48: D-Dimer Quant (PE/DVT) 1.61 H* Micro: Microbiology 02/21/21 10:34 Blood Culture (Wb) - Left Wrist Blood Culture - Preliminary No growth in 48 hours. 02/21/21 09:41 Blood Culture (Wb) - Central Line Blood Culture - Preliminary No growth in 48 hours. 02/21/21 17:00 Mucosa - Nasopharyngeal Respiratory Panel (PCR) - Final Parainfluenza 4 02/21/21 10:26 Interface Orders SARS-CoV-2 Antigen (Rapid) - Final Radiography Diagnostic Testing: Radiology Impression Chest CTA 02/23/21 17:34 IMPRESSION: There is a right lower lobe pulmonary embolism with no heart strain. Electronically Signed: Rafael Galicia MD at 18:17 EST , Service support , ADDENDUM: 02/23/21 1828 IMPRESSION: There is a right lower lobe pulmonary embolism with no heart strain. N.B. : The above Results were Read Back by Rafael Galicia MD to MARIO Marlow, and understanding confirmed on 02/23/2021 18:21:40 (ET). Electronically Signed: Rafael Galicia MD at 18:17 EST , Service support , Physical Exam Narrative Physical exam: General: Alert, Oriented x3, Cooperative, No apparent distress, on 2-5 L of oxygen HEENT: Atraumatic Oral: Moist Mucosa Neck: Supple Lungs: Diminished to auscultation Cardiovascular: HS I+II, regular, no murmurs Abdomen: Bowel Sounds Present, Soft, Non Tender Extremities: No edema Assessment & Plan Assessment/Plan (1) Acute exacerbation of chronic obstructive pulmonary disease (COPD): (2) Tobacco use disorder: PLAN: 1. Acute hypoxic respiratory insufficiency secondary to acute COPD/acute PE Continue on oxygen, wean off SPO2 more than 94% 2. Acute COPD exacerbation secondary to parainfluenza 4 bronchitis Continue on Solu-Medrol and breathing treatment 3. Acute PE, started on Lovenox, will discharge on Eliquis Discussed with oncology -xiomy with Darryl 4. Leukocytosis, increased, likely secondary to steroids, improved Will continue to monitor 5. Ovarian cancer, receiving chemotherapy, follows Dr. Morfin Last chemotherapy received 02/16/2021 6. Chronic medical conditions including hypothyroidism/anxiety and depression/hypertension remained stable Meds reviewed. Started on BuSpar for anxiety Charges/Coding Visit Charges Inpatient E&M: 11087 Subs Hosp L2
[2021-02-24] MEDS: busPIRone 5 MG Tablet PO ×2 (11:38→21:02)
--- NOTE | 2021-02-24 12:09 | CASEMGMT ---
LAN CM NOTE: Per Dr Drake, plan is for pt to discharge home on Eliquis, which has been e-scribed to [facility]. TC to Andrea @ [facility]. He states pt's cost will be $9.20 for 30-day supply. Pt made aware and voices appreciation. Benjamin SLOAN RN CM
--- NOTE | 2021-02-24 13:57 | CON.PCM.CC_ITS ---
Assessment & Plan Assessment/Plan (1) Acute exacerbation of chronic obstructive pulmonary disease (COPD): (2) Tobacco use disorder: (3) Severe protein-calorie malnutrition: PLAN: RECOMMENDATIONS: 1. Continue bronchodilators and steroids 2. Likely transition to prednisone to complete a 12-day taper on discharge 3. Walking oximetry prior to discharge 4. Outpatient work-up with walking oximetry and complete PFT IMPRESSIONS: 1. Acute hypoxic respiratory insufficiency secondary to COPD exacerbation secondary to parainfluenza virus/PE Patient is at increased risk for PE given ongoing ovarian cancer. Patient also has parainfluenza with a high clinical suspicion for COPD. Patient has never had a pulmonary function test for quantification clarification of lung function. Patient is requiring supplemental oxygen. High clinical suspicion that this will need to be continued as an outpatient. Patient understands that a POC cannot be arranged until it is felt that this is a chronic knee. Patient will need at least 3 months of anticoagulation. Ideally Lovenox is used in the setting of malignancy, but defer to hospitalist. Patient can likely be transition to prednisone tomorrow and weaned over the next 12 to 14 days. 2. Ovarian cancer/malnutrition/tobacco abuse Complicates care, management, recovery and prognosis. Continue with chemotherapy per Dr. Morfin. Encourage smoking cessation. HPI Consult Data Date of Consult: 02/24/21 HPI Narrative HPI Narrative: SOFIA COREA is a 60 F, with past medical history listed below, who presented to [facility] on 02/21/2021 secondary to progressive shortness of breath and wheezing. Patient carries a preliminary diagnosis of COPD and felt that she had bronchitis for 3 days prior to presentation. Patient not reporting fevers or chills. Patient is vaccinated against COVID-19, but tends to get bronchitis like this every winter. Patient has had a protracted mcnulty against ovarian cancer for the last 9 years and is on oral chemotherapy. Patient does not use oxygen at baseline. Some family members had reported perioral cyanosis prior to presentation. In the ER, patient was afebrile, but tachycardic at 102 bpm. Patient was requiring 4 L nasal cannula to maintain saturations as saturations in triage were less than 80% on room air. Patient was tachypneic as high as 31 breaths/min. Laboratory work-up showed a white blood cell count of 30.4, hemoglobin of 11.5 and potassium of 3.4. Renal function was within normal limits, along with liver function and lactic acid. UA was unremarkable. Chest x-ray showed only hyperinflation and EKG showed sinus rhythm. Patient was admitted to the floor on supplemental oxygen to continue her work- up. Patient did end up having a CTA of the chest showing a right lower lobe pulmonary embolism. Patient also has tested positive for parainfluenza. Patient has been improving on Solu-Medrol, but given concerns for follow-up, a pulmonary consult was obtained. Patient reports a 40+ pack year smoking history. Patient has also been battling with ovarian cancer. Patient states she is never seen a leach runner or had a pulmonary function test. Patient does have albuterol that she uses as needed. Patient reports she is very limited on her exercise tolerance at baseline but has gotten used to it. Patient has not reported any significant lower extremity swelling. Patient is very concerned that she continues to have her chemotherapy as she is on the last stand. Patient denies any exposure to asbestos or TB. Patient does report a history of recreational marijuana use. Review of systems otherwise negative from a constitutional, HEENT, respiratory, cardiovascular, GI, genitourinary, musculoskeletal, skin, neurologic, psychiatric and hematologic system unless stated above. [facility] Medical History Arterial hemorrhage Bipolar disorder (manic depression) COPD (chronic obstructive pulmonary disease) Hypertension Ovarian epithelial cancer Home Medications lamotrigine [Lamictal] 100 mg PO DAILY 05/23/17 [History Last Taken 02/21/21] ondansetron HCl 8 mg PO Q8H PRN PRN 05/23/17 [History Last Taken 09/17/17] levothyroxine 25 mcg PO DAILY 07/30/18 [History Last Taken 02/21/21] oxycodone-acetaminophen 1 tab PO DAILY PRN 07/30/18 [History Last Taken Unknown] prochlorperazine maleate [Compazine] 10 mg PO Q6H PRN PRN 07/30/18 [History Last Taken Unknown] olanzapine 10 mg PO QHS 12/17/19 [History Last Taken 02/20/21] amlodipine 10 mg PO DAILY 02/21/21 [History Last Taken 02/21/21] apixaban [Eliquis] See Taper PO BID #60 tab 02/24/21 [Rx Last Taken Unknown] Allergy/AdvReac Type Severity Reaction Status Date / Time erythromycin base Allergy Hives Verified 02/21/21 09:06 [Erythromycin Base] Surgical History H/O: hysterectomy History of bowel resection History of splenectomy Social History Smoking Status: Current every day smoker tobacco type: cigarettes alcohol intake: former substance use type: does not use ROS ROS Narrative See HPI Physical Exam Const alert and oriented x3 General Appearance: cooperative, anxious and appears older than stated age Orientation / Consciousness: awake Exam Limitations: no limitations Nutritional Appearance: cachectic HEENT normocephalic and moist oral mucous membranes Eyes PERRL, EOMs intact bilaterally and conjunctivae normal Chest Chest: abnormal inspection of the chest increased A-P diameter and symmetrical chest wall rise Resp Effort and Inspection: able to speak in complete sentences Auscultation: diminished lung sounds diffuse; Negative for rales, rhonchi or wheezes Cardio regular rate, regular rhythm, S1 normal heart sound, S2 normal heart sound and no murmurs GI normal to inspection, nondistended, normoactive bowel sounds, soft to palpation, non-tender and non-distended Extremity normal to inspection, full ROM and no clubbing, cyanosis or edema Skin no rashes or lesions noted, no wounds, skin turgor normal, no jaundice, no petechiae and no mottling Neuro oriented x3, CN's II-XII intact bilaterally, moves all extremities, no focal motor deficits and no sensory deficits noted Psych cooperative Appearance: grossly normal Attitude: engaged Activity / Motor Behavior: appropriate eye contact Speech: normal speech Mood & Affect: anxious Medical Records Data Medical Nutrition Assessment Dietitian: Malnutrition Criteria Met Start: 02/22/21 11:09 Freq: Status: Active Protocol: Document 02/22/21 11:10 RMA (Rec: 02/22/21 11:10 RMA [id number]) Nutrition Malnutrition Evidence of Malnutrition Exists Yes Malnutrition (severe): Acute Illness/Injury,Chronic Evidenced By Suboptimal Energy Intake ( Severe),Weight Loss (Severe), Physical Changes (Severe) Clinical Problem Chronic Disease or Condition Related Malnutrition Etiology Severe protein-calorie malnutrition in the context of acute on chronic disease related to increased energy expenditure/catabolic disease, inadequate oral intake Signs/Symptoms as evidenced by ~5% wt loss x past 1-2 months, PO meeting less than 50-75% estimated nutrition needs, need for oral nutrition supplements, BMI 15 .5 and obvious muscle and fat wasting in the orbital, temporal area, clavicle, arms and legs. Status Active Problem Recommendation Dietitian Recommendations/Changes Continue regular diet as ordered with well cooked vegetables and moist meats. Will add 240ml chocolate carnation instant breakfast w/ whole milk TID Q meal. Pt refusing ensure products and magic cup at this time. Lab / Micro Data Result Diagrams: 02/23/21 08:04 02/23/21 08:04 Labs: Laboratory Results - last 24 hr 02/23/21 16:48: D-Dimer Quant (PE/DVT) 1.61 H* Radiology Impression Chest CTA 02/23/21 17:34 IMPRESSION: There is a right lower lobe pulmonary embolism with no heart strain. Electronically Signed: Rafael Galicia MD at 18:17 EST , Service support , ADDENDUM: 02/23/21 1828 IMPRESSION: There is a right lower lobe pulmonary embolism with no heart strain. N.B. : The above Results were Read Back by Rafael Galicia MD to MARIO Marlow, and understanding confirmed on 02/23/2021 18:21:40 (ET). Electronically Signed: Rafael Galicia MD at 18:17 EST , Service support , Charges/Coding Visit Charges Inpatient E&M: 05428 Init Hosp L2
[2021-02-24] MEDS: OLANZapine 10 MG Tablet PO (21:02)
[2021-02-25] VITALS (8 sets, daily range): BP systolic 138–151; BP diastolic 65–90; PULSE 86–107; RESP 18–22; TEMP 36.6–36.9; O2SAT 88–98
[2021-02-25] MEDS: Levothyroxine 25 MCG TABLET PO (05:57)
[2021-02-25] MEDS: 0.9% Saline Lock 10 ML Syringe IV ×2 (05:57→13:21)
[2021-02-25] MEDS: Ipratropium/Albuterol Sulfate 3 ML AMPUL.NEB INHALATION ×2 (07:09→10:41)
[2021-02-25 07:14] LABS: Absolute Lymphocyte Count 5.68 X10^3/uL (0.83-4.51); Absolute Neutrophil Count 22.5 X10^3/uL (2.0-7.7); Basophil# 0.05 X10^3/uL; Basophil% 0.2 % (0-1); Hematocrit 33.2 % (37-47); Hemoglobin 11.1 g/dL (12.0-15.0); Lymphocyte # 5.68 X10^3/ul (0.83-4.51); Lymphocyte % 18.5 % (19-41); Mean Corp Hgb Conc 33.4 g/dL (32-36); Mean Corpuscular Hgb 32.9 pg (27.0-32.0); Mean Corpuscular Volume 98.5 fL (81-99); Mean Platelet Vol. 12.4 fl (6.2-12.0); Monocyte# 1.45 X10^3/uL; Monocyte% 4.7 % (0-10); NRBC Flagged by Analyzer 0.1 % (0-5); Neutrophil # 22.52 X10^3/uL (2.7-7.7); Neutrophil % 73.1 % (47-70); POSITIVE COUNT YES; POSITIVE DIFFERENTIAL YES; POSITIVE MORPHOLOGY YES; Platelet Count 115 K/mm3 (150-450); RBC Distribution Width CV 17.1 % (11.6-14.6); Red Blood Count 3.37 M/mm3 (4.2-5.4)
[2021-02-25 07:24] LABS: White Blood Count 30.8 K/mm3 (4.4-11.0)
[2021-02-25 07:25] LABS: Differential Indicated SCAN CRITERIA MET
[2021-02-25 07:42] LABS: ALB/GLOB Ratio 0.9 RATIO (0.9-2.4); AST(SGOT) 31 U/L (15-37); Alanine Aminotransfer ALT/SGPT 46 U/L (13-56); Albumin, Serum 3.2 g/dL (3.2-5.0); Alkaline Phosphatase 209 U/L (45-117); Anion Gap 6 (5-15); BUN 30 mg/dL (7-18); BUN/Creat Ratio 36.6 RATIO (10-20); Calcium,Total 8.7 mg/dL (8.5-10.1); Chloride 107 mmol/L (98-107); Creatinine, Serum 0.82 mg/dL (0.55-1.02); EST Glomerular Filtration Rate 76 mL/min (>60); Est Glom Filt Rate - Afr Amer 91 mL/min (>60); Estimated Creatinine Clearance 48.72 ml/min; Globulin 3.7 g/dL (2.2-4.2); Glucose 109 mg/dL (74-106); Potassium 4.4 mmol/L (3.5-5.1); Protein, Total 6.9 g/dL (6.4-8.2); Sodium Level 141 mmol/L (136-145)
[2021-02-25 08:04] LABS: Toxic Granulation 1+
[2021-02-25] MEDS: lamoTRIgine 100 MG Tablet PO (08:24)
[2021-02-25] MEDS: busPIRone 5 MG Tablet PO (08:24)
[2021-02-25] MEDS: Enoxaparin 40 MG/0.4 ML Syringe SC (08:24)
[2021-02-25] MEDS: amLODIPine 10 MG Tablet PO (08:24)
[2021-02-25] MEDS: oxyCODONE 5 MG Tablet PO (08:30)
--- NOTE | 2021-02-25 10:27 | PCM.DC.SUM ---
Providers Date of Admission: 02/21/21 Date of Discharge: 02/25/21 Primary Care Physician: Dr. Obdulio Gerber MD Consultations 02/24/21 10:25 Consult: Auto Clutch Specialist / Pulmonary Medicine Routine Consulting Provider: Elio Abbasi Reason for Consult: copd EMERGENT Consult: No Notified: Yes Date Notified: 02/24/21 Time Notified: 10:35 Method of Notification: Text Reason For Visit: COPD EXACERBATION Diagnosis Discharge Diagnosis (1) Acute exacerbation of chronic obstructive pulmonary disease (COPD): Status: Acute Code(s): J44.1 - Chronic obstructive pulmonary disease with (acute) exacerbation (2) Tobacco use disorder: Status: Chronic Code(s): F17.200 - Nicotine dependence, unspecified, uncomplicated (3) Severe protein-calorie malnutrition: Status: Acute Code(s): E43 - Unspecified severe protein-calorie malnutrition (4) Hypoxia: Status: Acute Code(s): R09.02 - Hypoxemia (5) Pulmonary embolism: Status: Acute Code(s): I26.99 - Other pulmonary embolism without acute cor pulmonale Medications at Discharge Home Medications lamotrigine [Lamictal] 100 mg PO DAILY 05/23/17 ondansetron HCl 8 mg PO Q8H PRN PRN 05/23/17 levothyroxine 25 mcg PO DAILY 07/30/18 oxycodone-acetaminophen 1 tab PO DAILY PRN 07/30/18 prochlorperazine maleate [Compazine] 10 mg PO Q6H PRN PRN 07/30/18 olanzapine 10 mg PO QHS 12/17/19 amlodipine 10 mg PO DAILY 02/21/21 apixaban [Eliquis] See Taper PO BID #60 tab 02/24/21 albuterol sulfate 2 puff INHALATION Q4H PRN #8.5 g 02/25/21 buspirone 5 mg PO BID 30 Days #60 tab 02/25/21 prednisone See Taper PO DAILY #30 tab 02/25/21 sodium chloride [Saline Nasal] 2 spray INTRANASAL Q2H PRN #104 ml 02/25/21 Hospital Course Operations None Procedures None Summary of Care Provided Minutes Spent on Discharge: 45 Hospital Course: 60-year-old female with past medical history of ovarian CA, undergoing chemotherapy who came in with progressive shortness of breath. Patient has history of COPD but not on oxygen. Her admitting x-ray did not show any infiltrates. Per COVID-19 test was negative. Patient panel was positive for parainfluenza 4. Patient was initially managed on breathing treatments, IV Solu-Medrol with minimal improvement. D-dimer was checked and it was elevated at 1.61. Patient underwent CT of the chest that showed right lower lobe acute PE. She was started on therapeutic Lovenox. She was evaluated for oxygen at discharge and qualified for home oxygen. She required oxygen 2 L at rest and 4 L with exertion. She was discharged on a prednisone taper as well as Eliquis. She would follow-up with a primary care doctor, pulmonology within 2 weeks. She will also follow-up with her oncologist as scheduled for chemotherapy. Physical Exam Narrative Physical exam: General: Alert, Oriented x3, Cooperative, No apparent distress, on 2-5 L of oxygen HEENT: Atraumatic Oral: Moist Mucosa Neck: Supple Lungs: Diminished to auscultation Cardiovascular: HS I+II, regular, no murmurs Abdomen: Bowel Sounds Present, Soft, Non Tender Extremities: No edema Medical Records Data Medical Nutrition Assessment Dietitian: Malnutrition Criteria Met Start: 02/22/21 11:09 Freq: Status: Active Protocol: Document 02/22/21 11:10 RMA (Rec: 02/22/21 11:10 RMA [id number]) Nutrition Malnutrition Evidence of Malnutrition Exists Yes Malnutrition (severe): Acute Illness/Injury,Chronic Evidenced By Suboptimal Energy Intake ( Severe),Weight Loss (Severe), Physical Changes (Severe) Clinical Problem Chronic Disease or Condition Related Malnutrition Etiology Severe protein-calorie malnutrition in the context of acute on chronic disease related to increased energy expenditure/catabolic disease, inadequate oral intake Signs/Symptoms as evidenced by ~5% wt loss x past 1-2 months, PO meeting less than 50-75% estimated nutrition needs, need for oral nutrition supplements, BMI 15 .5 and obvious muscle and fat wasting in the orbital, temporal area, clavicle, arms and legs. Status Active Problem Recommendation Dietitian Recommendations/Changes Continue regular diet as ordered with well cooked vegetables and moist meats. Will add 240ml chocolate carnation instant breakfast w/ whole milk TID Q meal. Pt refusing ensure products and magic cup at this time. Weight / BMI Weight Weight: 42.3 kg Body Mass Index (BMI) 15.5 ABG / Lab / Microbiology Data Result Diagrams: 02/25/21 05:59 02/25/21 05:59 Laboratory: Laboratory Results - last 24 hr 02/25/21 05:59: WBC 30.8 H*, RBC 3.37 L, Hgb 11.1 L, Hct 33.2 L, MCV 98.5, MCH 32.9 H, MCHC 33.4, RDW Std Deviation 61.0 H, RDW Coeff of Aracely 17.1 H, Plt Count 115 L, MPV 12.4 H, Immature Gran % (Auto) 3.500 H, Neut % (Auto) 73.1 H, Lymph % (Auto) 18.5 L, [place] % (Auto) 4.7, Eos % (Auto) 0.0, Baso % (Auto) 0.2, Absolute Neuts (auto) 22.5 H, Absolute Lymphs (auto) 5.68 H, Nucleated RBC % 0.1, Diff Path Review July foll, Toxic Granulation 1+ 02/25/21 05:59: Sodium 141, Potassium 4.4, Chloride 107, Carbon Dioxide 28.0, Anion Gap 6, BUN 30 H, Creatinine 0.82, Estim Creat Clear Calc 48.72, Est GFR (MDRD) Af Amer 91, Est GFR (MDRD) Non-Af 76, BUN/Creatinine Ratio 36.6 H, Glucose 109 H, Calcium 8.7, Total Bilirubin 0.30, AST 31, ALT 46, Alkaline Phosphatase 209 H, Total Protein 6.9, Albumin 3.2, Globulin 3.7, Albumin/Globulin Ratio 0.9 Microbiology: Microbiology 02/21/21 10:34 Blood Culture (Wb) - Left Wrist Blood Culture - Preliminary No growth in 48 hours. 02/21/21 09:41 Blood Culture (Wb) - Central Line Blood Culture - Preliminary No growth in 48 hours. 02/21/21 17:00 Mucosa - Nasopharyngeal Respiratory Panel (PCR) - Final Parainfluenza 4 02/21/21 10:26 Interface Orders SARS-CoV-2 Antigen (Rapid) - Final D/C Instructions Discharge Diet: No restrictions Meaningful Use Info Meaningful Use Diagnoses (Choose all that apply): None applicable Discharge Plan Admission Admit Date/Time: 02/21/21 14:41 Primary Reason for Your Visit: Hypoxia/acute COPD exacerbation Attending Provider: Fiordaliza Drake Primary Care Provider: Obdulio Gerber Consulting Providers: Elio Abbasi Instructions Additional Instructions / Restrictions: You are being discharged with oxygen. Continue to use your oxygen all the time. Continue to use your incentive spirometer. Continue to remain active and eat healthy.Be careful of going near open flames whilst on oxygen. Complete your prednisone taper as prescribed. Follow-up with pulmonology and your primary care doctor to have your oxygen reevaluated. Discharge Orders/Prescriptions Prescriptions: New Eliquis 5 mg tablet See Taper mg PO BID Qty: 60 RF: 0 buspirone 5 mg Tablet 5 mg PO BID 30 Days Qty: 60 RF: 0 prednisone 10 mg tablet See Taper mg PO DAILY Qty: 30 RF: 0 sodium chloride [Saline Nasal] 0.65 % aerosol,spray 2 spray intranasal Q2H PRN (Reason: dry nasal passages) Qty: 104 RF: 0 albuterol sulfate 90 mcg/actuation HFA aerosol inhaler 2 puff inhalation Q4H PRN (Reason: shortness of breath or wheezing) Qty: 8.5 RF: 0 Continued ondansetron HCl 8 MG tablet 8 mg PO Q8H PRN PRN (Reason: Nausea) RF: 0 lamotrigine [Lamictal] 25 MG tablet 100 mg PO DAILY RF: 0 prochlorperazine maleate [Compazine] 10 MG tablet 10 mg PO Q6H PRN PRN (Reason: Nausea) RF: 0 levothyroxine 25 MCG tablet 25 mcg PO DAILY RF: 0 oxycodone-acetaminophen 1 TABLET tablet 1 tab PO DAILY PRN (Reason: Pain 1-10 Or Fever) RF: 0 olanzapine 10 MG tablet 10 mg PO QHS RF: 0 amlodipine 10 MG tablet 10 mg PO DAILY RF: 0 Referrals / Follow Up: Obdulio Gerber MD [Primary Care Provider] - Within 2 Weeks Dayna Smith NP, [employer]ICE [employer]ACHIN[employer] [Nurse Practitioner] - Within 2 Weeks Disposition Disposition (needs filled in before D/C Order can be placed): Home, Self Care Charges/Coding Visit Charges Inpatient E&M: 04058 Disch Hosp
--- NOTE | 2021-02-25 10:50 | CASEMGMT ---
[facility] NOTE: Pt discharging home today. She qualifies for Home O2 @ 2l/m @ rest and 4 l/m w/exertion. Script faxed to [facility]. Portable O2 tank taken from [facility] supply and given to pt. Script faxed to [facility]. [place] [facility] of [place] order, and tank taken from supply. [facility] to room. Reviewed home O2 set-up and questions answered. Pt agreeable to [facility] referral. Order placed. TC to [place] @ [facility] and notified of referral. Benjamin SLOAN RN CM
--- NOTE | 2021-02-25 13:47 | PN.CC_ITS ---
Assessment & Plan Assessment/Plan (1) Acute exacerbation of chronic obstructive pulmonary disease (COPD): (2) Tobacco use disorder: (3) Severe protein-calorie malnutrition: PLAN: RECOMMENDATIONS: 1. Continue bronchodilators. 2. Transition to prednisone to complete a 12-day taper on discharge 3. Patient should obtain a pulse oximeter for monitoring oxygen saturations at home 4. Outpatient work-up with walking oximetry and complete PFT 5. Complete at least 3 months of anticoagulation IMPRESSIONS: 1. Acute hypoxic respiratory insufficiency secondary to COPD exacerbation secondary to parainfluenza virus/PE Patient is at increased risk for PE given ongoing ovarian cancer. Patient also has parainfluenza with a high clinical suspicion for COPD. Patient has never had a pulmonary function test for quantification clarification of lung function. Patient is requiring supplemental oxygen. High clinical suspicion that this will need to be continued as an outpatient. Patient understands that a POC cannot be arranged until it is felt that this is a chronic knee. Patient will need at least 3 months of anticoagulation. Ideally Lovenox is used in the setting of malignancy, but defer to hospitalist. Patient can likely be transition to prednisone tomorrow and weaned over the next 12 to 14 days. 2. Ovarian cancer/malnutrition/tobacco abuse Complicates care, management, recovery and prognosis. Continue with chemotherapy per Dr. Morfin. Encourage smoking cessation. Subjective Subjective Patient did okay overnight. Patient did have a walking oximetry suggesting 2 L at rest and 4 L with exertion. Patient subjectively feels she is strong enough to go home. Patient does not have a pulse oximeter at home for monitoring of saturations. Objective Data Objective Data Vital Signs: Vital Signs Temp Pulse Resp BP Pulse Ox 36.9 C 107 H 18 138/65 H 98 02/25/21 13:22 02/25/21 13:22 02/25/21 13:22 02/25/21 13:22 02/25/21 13:22 Oxygen Flow Rate (L/min) [ 5 AMBULATING with Oxygen #3] Oxygen Flow Rate (L/min) [ 4 AMBULATING with Oxygen #2] Oxygen Flow Rate (L/min) [ 2 AMBULATING with Oxygen #1] Oxygen Flow Rate (L/min) [At 2 REST with Oxygen] Oxygen Flow Rate (L/min) 2 Oxygen Delivery Method Nasal Cannula Weight: 42.3 kg Body Mass Index (BMI) 15.5 Intake & Output: Intake and Output for Last 24 Hours 02/23/21 02/24/21 02/25/21 23:59 23:59 23:59 Intake Total 980 / 980 400 / 400 300 / 300 Balance 980 / 980 400 / 400 300 / 300 Medical Nutrition Assessment Dietitian: Malnutrition Criteria Met Start: 02/22/21 11:09 Freq: Status: Active Protocol: Document 02/22/21 11:10 RMA (Rec: 02/22/21 11:10 RMA [id number]) Nutrition Malnutrition Evidence of Malnutrition Exists Yes Malnutrition (severe): Acute Illness/Injury,Chronic Evidenced By Suboptimal Energy Intake ( Severe),Weight Loss (Severe), Physical Changes (Severe) Clinical Problem Chronic Disease or Condition Related Malnutrition Etiology Severe protein-calorie malnutrition in the context of acute on chronic disease related to increased energy expenditure/catabolic disease, inadequate oral intake Signs/Symptoms as evidenced by ~5% wt loss x past 1-2 months, PO meeting less than 50-75% estimated nutrition needs, need for oral nutrition supplements, BMI 15 .5 and obvious muscle and fat wasting in the orbital, temporal area, clavicle, arms and legs. Status Active Problem Recommendation Dietitian Recommendations/Changes Continue regular diet as ordered with well cooked vegetables and moist meats. Will add 240ml chocolate carnation instant breakfast w/ whole milk TID Q meal. Pt refusing ensure products and magic cup at this time. Lab / Micro Data Result Diagrams: 02/25/21 05:59 02/25/21 05:59 Labs: Laboratory Results - last 24 hr 02/25/21 05:59: WBC 30.8 H*, RBC 3.37 L, Hgb 11.1 L, Hct 33.2 L, MCV 98.5, MCH 32.9 H, MCHC 33.4, RDW Std Deviation 61.0 H, RDW Coeff of Aracely 17.1 H, Plt Count 115 L, MPV 12.4 H, Immature Gran % (Auto) 3.500 H, Neut % (Auto) 73.1 H, Lymph % (Auto) 18.5 L, [place] % (Auto) 4.7, Eos % (Auto) 0.0, Baso % (Auto) 0.2, Absolute Neuts (auto) 22.5 H, Absolute Lymphs (auto) 5.68 H, Nucleated RBC % 0.1, Diff Path Review May foll, Toxic Granulation 1+ 02/25/21 05:59: Sodium 141, Potassium 4.4, Chloride 107, Carbon Dioxide 28.0, Anion Gap 6, BUN 30 H, Creatinine 0.82, Estim Creat Clear Calc 48.72, Est GFR (MDRD) Af Amer 91, Est GFR (MDRD) Non-Af 76, BUN/Creatinine Ratio 36.6 H, Glucose 109 H, Calcium 8.7, Total Bilirubin 0.30, AST 31, ALT 46, Alkaline Phosphatase 209 H, Total Protein 6.9, Albumin 3.2, Globulin 3.7, Albumin/Globulin Ratio 0.9 Micro: Microbiology 02/21/21 10:34 Blood Culture (Wb) - Left Wrist Blood Culture - Preliminary No growth in 48 hours. 02/21/21 09:41 Blood Culture (Wb) - Central Line Blood Culture - Preliminary No growth in 48 hours. 02/21/21 17:00 Mucosa - Nasopharyngeal Respiratory Panel (PCR) - Final Parainfluenza 4 02/21/21 10:26 Interface Orders SARS-CoV-2 Antigen (Rapid) - Final Physical Exam Const alert and oriented x3 General Appearance: cooperative, anxious and appears older than stated age Orientation / Consciousness: awake Exam Limitations: no limitations Nutritional Appearance: cachectic HEENT normocephalic and moist oral mucous membranes Eyes PERRL, EOMs intact bilaterally and conjunctivae normal Chest Chest: abnormal inspection of the chest increased A-P diameter and symmetrical chest wall rise Resp Effort and Inspection: able to speak in complete sentences Auscultation: diminished lung sounds diffuse; Negative for rales, rhonchi or wheezes Cardio regular rate, regular rhythm, S1 normal heart sound, S2 normal heart sound and no murmurs GI normal to inspection, nondistended, normoactive bowel sounds, soft to palpation, non-tender and non-distended Extremity normal to inspection, full ROM and no clubbing, cyanosis or edema Skin no rashes or lesions noted, no wounds, skin turgor normal, no jaundice, no petechiae and no mottling Neuro oriented x3, CN's II-XII intact bilaterally, moves all extremities, no focal motor deficits and no sensory deficits noted Psych cooperative Appearance: grossly normal Attitude: engaged Activity / Motor Behavior: appropriate eye contact Speech: normal speech Mood & Affect: anxious Charges/Coding Visit Charges Inpatient E&M: 11098 Subs Hosp L2
[2021-02-28 10:34] LABS: Pathologist Review Reviewed
--- NOTE | 2021-03-01 10:14 | CCN.REFER ---
CCN REFERRAL PATIENT ADAMANTLY DECLINED CCN SERVICES. STATES SHE IS TOO BUSY WITH APPOINTMENTS IN CHEMO TO HAVE SOMEONE COME TO HER HOME. CCN CONTACT INFO LEFT WITH PATIENT.
== END 2021-02-25 14:25 | disposition home or self-care (01) | DRG 175 ==
LOC: ED 14:26 → MS3 16:01
PROVIDERS: Admitting Provider Family Medicine; Emergency Provider Emergency Medicine; PCP Family Medicine; Visit Provider Internal Medicine
DX: I26.99 Other pulmonary embolism without acute cor pulmonale (principal); E43 Unspecified severe protein-calorie malnutrition; J96.01 Acute respiratory failure with hypoxia; J44.1 Chronic obstructive pulmonary disease with (acute) exacerbation; Z68.1 Body mass index [BMI] 19.9 or less, adult; C56.9 Malignant neoplasm of unspecified ovary; J10.1 Influenza due to other identified influenza virus with other respiratory manifestations; B96.3 Hemophilus influenzae [H. influenzae] as the cause of diseases classified elsewhere; K59.09 Other constipation; E03.9 Hypothyroidism, unspecified; F41.9 Anxiety disorder, unspecified; F31.9 Bipolar disorder, unspecified; G89.29 Other chronic pain; I10 Essential (primary) hypertension; Z90.81 Acquired absence of spleen; Z79.899 Other long term (current) drug therapy; F17.210 Nicotine dependence, cigarettes, uncomplicated; F12.90 Cannabis use, unspecified, uncomplicated
CPT/HCPCS: 36415; 36591; 71045; 71275; 80048; 80053; 81001; 83605; 84484; 85025; 85379; 87040; 87426; 87633; 93005; 94640; 94762; 99251; 99285; 99406; J7030; J7050; Q9967; A4216; G0463

== ENCOUNTER 2021-02-26 08:36 | Emergency (ER) | payer MEDICARE, MEDICAID, SELFPAY ==
[2021-02-26 08:37] VITALS: BP 166/83; PULSE 103; RESP 24; TEMP 36.9; O2SAT 95; BMI 15.3
--- NOTE | 2021-02-26 10:27 | EDS_ITS ---
HPI History of Present Illness Chief Complaint: Nosebleed Narrative Narrative: 60-year-old female presenting with epistaxis. She states this was in her left nare. Patient states it started overnight. Initially it was more brisk and she was able to get this under control. Occasionally she has quite a small amount out of her nose. This is now resolved. Patient denies any trauma. Patient has a history of ovarian cancer which is metastatic and she sees Dr. Morfin. She currently gets chemotherapy. She was recently hospitalized because she was hypoxic and she was found to have a pulmonary embolism. She was started on Eliquis. She is also on O2 at home which she was discharged home with yesterday. Patient otherwise feels generally well. [facility] Medical History Arterial hemorrhage Bipolar disorder (manic depression) COPD (chronic obstructive pulmonary disease) Hypertension Ovarian epithelial cancer Home Medications lamotrigine [Lamictal] 100 mg PO DAILY 05/23/17 [History Last Taken 02/21/21] ondansetron HCl 8 mg PO Q8H PRN PRN 05/23/17 [History Last Taken 09/17/17] levothyroxine 25 mcg PO DAILY 07/30/18 [History Last Taken 02/21/21] oxycodone-acetaminophen 1 tab PO DAILY PRN 07/30/18 [History Last Taken Unknown] prochlorperazine maleate [Compazine] 10 mg PO Q6H PRN PRN 07/30/18 [History Last Taken Unknown] olanzapine 10 mg PO QHS 12/17/19 [History Last Taken 02/20/21] amlodipine 10 mg PO DAILY 02/21/21 [History Last Taken 02/21/21] apixaban [Eliquis] See Taper PO BID #60 tab 02/24/21 [Rx Last Taken Unknown] albuterol sulfate 2 puff INHALATION Q4H PRN #8.5 g 02/25/21 [Rx Last Taken Unknown] buspirone 5 mg PO BID 30 Days #60 tab 02/25/21 [Rx Last Taken Unknown] prednisone See Taper PO DAILY #30 tab 02/25/21 [Rx Last Taken Unknown] sodium chloride [Saline Nasal] 2 spray INTRANASAL Q2H PRN #104 ml 02/25/21 [Rx Last Taken Unknown] Allergy/AdvReac Type Severity Reaction Status Date / Time erythromycin base Allergy Hives Verified 02/21/21 09:06 [Erythromycin Base] Surgical History H/O: hysterectomy History of bowel resection History of splenectomy Social History Smoking Status: Current every day smoker tobacco type: cigarettes alcohol intake: former substance use type: does not use ROS ROS ED Constitutional Constitutional ED: Denies chills or fever(s) Eyes Eyes: Denies blurry vision or diplopia ENT ENT ED: Reports other Details: Epistaxis resolved Cardiovascular Cardiovascular: Denies chest pain or palpitations Respiratory/Chest Respiratory/Chest: Denies cough or dyspnea Gastrointestinal Gastrointestinal: Denies abdominal pain, nausea or vomiting Genitourinary Genitourinary ED: Denies dysuria or hematuria Musculoskeletal Musculoskeletal: Denies myalgias Integumentary Denies Abrasions or rash Neurologic Neurologic: Denies headache(s) or paresthesias EXAM Physical Exam Const Vital Signs: 02/26/21 08:37 Temperature 98.4 F Temperature Source Temporal Pulse Rate 103 H Respiratory Rate 24 H Blood Pressure 166/83 H Blood Pressure Mean 110 Pulse Ox 95 Oxygen Delivery Method Nasal Cannula Oxygen Flow Rate (L/min) 3 Positive well nourished General Appearance ED: NAD; Negative for pallor HEENT HEENT Narrative: Nares are dry. No active bleeding. Negative for trauma Eyes PERRL and EOMs intact bilaterally General Eye ED: Negative for pale conjunctiva Resp normal respiratory effort and clear to auscultation bilaterally Cardio regular rate and regular rhythm Neuro oriented x3 and CN's II-XII intact bilaterally Sensorium / Orientation: alert Psych mental status grossly normal Skin General Skin Exam: Negative for jaundice or pallor MDM MDM MDM Narrative Medical decision making narrative: Patient presenting with epistaxis out of her left naris which is now resolved. She denies any trauma. She is currently just started oxygen and Eliquis. She has a distant history of epistaxis which was treated by Dr. Lopez. Patient relates that she had to have surgery at that time. Since she does not have any current active bleeding. She is counseled to keep her nares moist. With the oxygen in place this may dry out her naris. I did not see anything that needs to be cauterized. I do not see an indication for her to be packed at this time. Patient will be discharged home to follow-up with her [facility] care provider and her ENT provider Dr. Lopez. Patient is given return precautions. Impression: 1. Epistaxis resolved Discharge Plan Triage Chief Complaint: Nosebleed ED Provider: Ethan Palmer Dx/Rx/DC Orders Instructions: Nosebleed Prescriptions: No Action ondansetron HCl 8 MG tablet 8 mg PO Q8H PRN PRN (Reason: Nausea) RF: 0 lamotrigine [Lamictal] 25 MG tablet 100 mg PO DAILY RF: 0 prochlorperazine maleate [Compazine] 10 MG tablet 10 mg PO Q6H PRN PRN (Reason: Nausea) RF: 0 levothyroxine 25 MCG tablet 25 mcg PO DAILY RF: 0 oxycodone-acetaminophen 1 TABLET tablet 1 tab PO DAILY PRN (Reason: Pain 1-10 Or Fever) RF: 0 olanzapine 10 MG tablet 10 mg PO QHS RF: 0 amlodipine 10 MG tablet 10 mg PO DAILY RF: 0 Eliquis 5 mg tablet See Taper mg PO BID Qty: 60 RF: 0 buspirone 5 mg Tablet 5 mg PO BID 30 Days Qty: 60 RF: 0 prednisone 10 mg tablet See Taper mg PO DAILY Qty: 30 RF: 0 sodium chloride [Saline Nasal] 0.65 % aerosol,spray 2 spray intranasal Q2H PRN (Reason: dry nasal passages) Qty: 104 RF: 0 albuterol sulfate 90 mcg/actuation HFA aerosol inhaler 2 puff inhalation Q4H PRN (Reason: shortness of breath or wheezing) Qty: 8.5 RF: 0 Primary Care Provider: Obdulio Gerber Referrals: Geovanni Lopez MD [STAFF PHYSICIAN] - As soon as possible Obdulio Gerber MD [Primary Care Provider] - Disposition Disposition: Home, Self Care
[2021-02-26 10:47] VITALS: BP 165/87; PULSE 97; RESP 16; O2SAT 92
--- NOTE | 2021-02-26 10:49 | ED.RN ---
pt waiting for son to bring home o2 for ride home.
== END 2021-02-26 11:48 | disposition home or self-care (01) ==
PROVIDERS: Emergency Provider Student in an Organized Health Care Education/Training Program; PCP Family Medicine
DX: R04.0 Epistaxis (principal); I10 Essential (primary) hypertension; F31.9 Bipolar disorder, unspecified; J44.9 Chronic obstructive pulmonary disease, unspecified; C56.9 Malignant neoplasm of unspecified ovary; Z86.711 Personal history of pulmonary embolism; Z79.01 Long term (current) use of anticoagulants; Z79.899 Other long term (current) drug therapy; F17.210 Nicotine dependence, cigarettes, uncomplicated
CPT/HCPCS: 99285